=== PATIENT | male | born 1970 | race Hispanic/Latino ===

== ENCOUNTER 2017-07-07 22:13 | Emergency (ER) | payer MEDICARE ==
[~2017-07-07 22:13] MED LIST: AMOX-429 PO; ASPI-1181 PO; ATOR10 PO; BUPR-47 PO; CYCL10TA7 PO; GLIP10TA9 PO; INSLAN SQ; INSREG SQ; LURA20TA PO; METO25 PO; NALO25TA PO; PREG150C PO; SUVO20TA PO; TRAM50TA4 PO; TYL3 PO
[2017-07-07 22:44] LABS: EOSINOPHILS % (AUTO) 1.2 % (0.0-8.0); HEMATOCRIT 35.4 % (42-54); LYMPHOCYTES % (AUTO) 31.9 % (21.0-51.0); MEAN CORPUSCULAR HEMOGLOBIN 26.4 pg (27.0-33.0); MEAN CORPUSCULAR HGB CONC 32.9 g/dL (32.0-36.0); MEAN CORPUSCULAR VOLUME 80.2 fL (79-99); MONOCYTES % (AUTO) 9.8 % (3.0-13.0); NEUTROPHILS % (AUTO) 56.1 % (40.0-77.0); PLATELET COUNT (AUTO) 279 K/uL (130-400); RED BLOOD CELL COUNT(AUTO) 4.42 MIL/uL (4.50-6.20); RED CELL DISTRIBUTION WIDTH 20.2 % (11.0-15.5); WHITE BLOOD COUNT (AUTO) 5.7 K/uL (4.8-10.8)
[2017-07-07] MEDS ORDERED: ALTEPLASE 100 MG VIAL ONE (23:00)
[2017-07-07 23:03] LABS: CREATININE 1.5 mg/dL (0.5-1.5)
[2017-07-07] MEDS ORDERED: INSULIN HUMULIN R 100 UNIT/ML 3ML SQ ONE (23:08)
[2017-07-07 23:11] LABS: APPEARANCE,URINE Clear (CLEAR); BILIRUBIN,URINE Negative (NEGATIVE); COLOR,URINE Yellow (YELLOW); GLUCOSE, URINE (UA) >=1000 mg/dL (NEGATIVE); KETONES,URINE Negative (NEGATIVE); LEUKOCYTE ESTERASE ,URINE Negative (NEGATIVE); NITRATE,URINE Negative (NEGATIVE); OCCULT BLOOD,URINE Small (NEGATIVE); PROTEIN,URINE POS 2+ (NEGATIVE); UROBILINOGEN,URINE 0.2 mg/dL (0.2-1.0)
[2017-07-07 23:18] LABS: AMPHET/METH SCREEN,URINE NEGATIVE (NEGATIVE); BARBITURATE SCREEN, URINE NEGATIVE (NEGATIVE); BENZODIAZEPINES SCREEN,URINE NEGATIVE (NEGATIVE); CANNABINOID SCREEN,URINE NEGATIVE (NEGATIVE); COCAINE SCREEN,URINE NEGATIVE (NEGATIVE); OPIATE SCREEN,URINE NEGATIVE (NEGATIVE); PHENCYCLIDINE SCREEN,URINE NEGATIVE (NEGATIVE)
[2017-07-07 23:20] LABS: BACTERIA,URINE Rare /HPF (None Seen); SQUAMOUS EPITHELIAL CELL,UR None Seen /LPF (0-2); WBC,URINE None Seen /HPF (0-1)
[2017-07-07 23:21] LABS: INR 0.91 (0.85-1.15); PARTIAL THROMBOPLASTIN TIME 24.7 SEC (26.3-35.5); PROTHROMBIN TIME 9.6 SEC (9.6-11.6)
[2017-07-07] MEDS ORDERED: HYDROXYZINE HCL 25 MG TABLET ONE (23:49)
[2017-07-08] MEDS ORDERED: LORAZEPAM 2 MG/ML 1 ML VIAL ONE ×2 (02:03→03:36)
[2017-11-21] MEDS ORDERED: NALO25TA PO (15:26)
[2017-11-21] MEDS ORDERED: INSU3INS3 SQ ×2 (15:26)
[2017-11-21] MEDS ORDERED: TRAZ-147 PO (15:26)
[2017-11-21] MEDS ORDERED: SITA25TA5 PO (15:26)
[2017-11-21] MEDS ORDERED: METO50TA18 PO (15:26)
[2017-11-21] MEDS ORDERED: LISI-613 PO (15:26)
[2017-11-21] MEDS ORDERED: INSREG SQ (15:26)
[2017-11-21] MEDS ORDERED: BUDE10.2 IH (15:26)
[2017-11-21] MEDS ORDERED: DULO60CA63 PO (15:26)
[2017-11-21] MEDS ORDERED: CLOP75TA14 PO (15:26)
[2017-11-21] MEDS ORDERED: PANT40TA25 PO (15:26)
[2017-11-21] MEDS ORDERED: BUPR-47 PO (15:26)
[2017-11-21] MEDS ORDERED: SUVO20TA PO (15:26)
[2017-11-21] MEDS ORDERED: QUET100T PO (15:26)
[2017-12-24] MEDS ORDERED: DOXY100C2 PO (09:57)
== END 2017-07-08 05:36 ==
LOC: EDH 22:13
DX: G62.9 Polyneuropathy, unspecified (principal); R53.1 Weakness; E10.65 Type 1 diabetes mellitus with hyperglycemia; F32.9 Major depressive disorder, single episode, unspecified; I10 Essential (primary) hypertension; Z88.8 Allergy status to other drugs, medicaments and biological substances; Z95.1 Presence of aortocoronary bypass graft
CPT/HCPCS: 36415; 70450; 80048; 80305; 81001; 82948 ×3; 84484; 85025; 85610; 85730; 93005; 96361; 96374 ×2; 96375; 96376; 99291; J1815; J2060 ×2; J2997

== ENCOUNTER → 2017-07-16 | Outpatient (CLI) | payer MEDICARE ==
[~2017-07-16] MED LIST changes: +BUDE10.2 IH; +CLOP75TA14 PO; +DOXY100C2 PO; +DULO60CA63 PO; +FERR-82 PO; +FURO20TA4 PO; +HYDR-4154 PO; +INSU100I15 SQ; +INSU3INS3 SQ; +LISI-613 PO; +LORA1TAB3 PO; +LOSA100T29 PO; +LUBI24CA2 PO; +METO50TA18 PO; +PANT40TA25 PO; +QUET100T PO; +ROPI0.255 PO; +SITA25TA5 PO; +TRAZ-147 PO
== END | disposition home or self-care (01) ==
LOC: SHCH 13:41
PROVIDERS: ATTEND Internal Medicine Cardiovascular Disease
DX: I73.9 Peripheral vascular disease, unspecified (principal)
CPT/HCPCS: 93925

== ENCOUNTER 2017-09-08 17:59 | Observation (INO) | payer MEDICARE ==
[~2017-09-08] VITALS: Ht 180.3 cm; Wt 125.4 kg
[~2017-09-08 17:59] MED LIST changes: -BUDE10.2 IH; -CLOP75TA14 PO; -DOXY100C2 PO; -DULO60CA63 PO; -FERR-82 PO; -FURO20TA4 PO; -HYDR-4154 PO; -INSU100I15 SQ; -INSU3INS3 SQ; -LISI-613 PO; -LORA1TAB3 PO; -LOSA100T29 PO; -LUBI24CA2 PO; -METO50TA18 PO; -PANT40TA25 PO; -QUET100T PO; -ROPI0.255 PO; -SITA25TA5 PO; -TRAZ-147 PO
[2017-09-08 18:32] LABS: BASOPHILS % (AUTO) 0.4 % (0.0-5.0); HEMATOCRIT 32.6 % (42-54); LYMPHOCYTES % (AUTO) 32.3 % (21.0-51.0); MEAN CORPUSCULAR HEMOGLOBIN 30.3 pg (27.0-33.0); MEAN CORPUSCULAR HGB CONC 35.6 g/dL (32.0-36.0); MEAN CORPUSCULAR VOLUME 85.2 fL (79-99); MONOCYTES % (AUTO) 18.3 % (3.0-13.0); PLATELET COUNT (AUTO) 240 K/uL (130-400); RED BLOOD CELL COUNT(AUTO) 3.83 MIL/uL (4.50-6.20); RED CELL DISTRIBUTION WIDTH 18.6 % (11.0-15.5); WHITE BLOOD COUNT (AUTO) 5.7 K/uL (4.8-10.8)
[2017-09-08 18:42] LABS: CREATININE 2.4 mg/dL (0.5-1.5); POTASSIUM 5.6 mmol/L (3.5-5.1)
[2017-09-08 18:45] LABS: INR 0.94 (0.85-1.15); PARTIAL THROMBOPLASTIN TIME 27.1 SEC (26.3-35.5); PROTHROMBIN TIME 9.9 SEC (9.6-11.6)
[2017-09-08 18:47] LABS: BILIRUBIN,TOTAL 0.2 mg/dL (0.2-1.0); TOTAL PROTEIN, SERUM 6.7 g/dL (6.0-8.3)
[2017-09-08] MEDS ORDERED: ASPIRIN 81MG TAB.CHEW ONE (18:51)
[2017-09-08] MEDS ORDERED: SODIUM CHLORIDE 0.9% 1000ML 1,000 ML IV SCH (21:25)
[2017-09-08] MEDS ORDERED: ALPRAZOLAM 0.25 MG TABLET ONE (23:16)
[2017-09-09 04:16] VITALS: BP 142/77
[2017-09-09] MEDS ORDERED: LURA20TA PO (04:38)
[2017-09-09] MEDS ORDERED: PANT40TA25 PO (04:38)
[2017-09-09] MEDS ORDERED: FERR-82 PO (04:38)
[2017-09-09] MEDS ORDERED: INSLAN SQ (04:38)
[2017-09-09] MEDS ORDERED: ROPI0.255 PO (04:38)
[2017-09-09] MEDS ORDERED: CLOP75TA14 PO (04:38)
[2017-09-09] MEDS ORDERED: DULO60CA63 PO (04:38)
[2017-09-09] MEDS ORDERED: FURO20TA4 PO (04:38)
[2017-09-09] MEDS ORDERED: INSU100I15 SQ (04:38)
[2017-09-09] MEDS ORDERED: LOSA100T29 PO (04:38)
[2017-09-09] MEDS ORDERED: NALO25TA PO (04:38)
[2017-09-09] MEDS ORDERED: LUBI24CA2 PO (04:38)
[2017-09-09] MEDS ORDERED: LORA1TAB3 PO (04:38)
[2017-09-09] MEDS ORDERED: QUET100T PO (04:38)
[2017-09-09] MEDS ORDERED: HYDR-4154 PO (04:40)
[2017-09-09] MEDS ORDERED: DEXTROSE 50%-WATER 50 ML DISP.SYRIN IV PRN (05:30)
[2017-09-09] MEDS ORDERED: LORAZEPAM 1 MG TABLET PO PRN (05:30)
[2017-09-09] MEDS ORDERED: GLUCAGON 1MG KIT 1 MG ML IM PRN (05:30)
[2017-09-09] MEDS ORDERED: TRAMADOL HCL 50 MG TABLET PO PRN (05:30)
[2017-09-09 06:10] LABS: HEMATOCRIT 33.7 % (42-54); MEAN CORPUSCULAR HEMOGLOBIN 29.3 pg (27.0-33.0); MEAN CORPUSCULAR HGB CONC 34.1 g/dL (32.0-36.0); MEAN CORPUSCULAR VOLUME 85.9 fL (79-99); PLATELET COUNT (AUTO) 260 K/uL (130-400); RED BLOOD CELL COUNT(AUTO) 3.93 MIL/uL (4.50-6.20); RED CELL DISTRIBUTION WIDTH 18.7 % (11.0-15.5); WHITE BLOOD COUNT (AUTO) 6.2 K/uL (4.8-10.8)
[2017-09-09] MEDS: INSULIN HUMULIN R 100 UNIT/ML 3ML SQ SCH ×2 (06:28→12:28)
[2017-09-09 06:31] LABS: CREATININE 2.1 mg/dL (0.5-1.5); POTASSIUM 5.1 mmol/L (3.5-5.1)
[2017-09-09 07:00] VITALS: BP 152/87
[2017-09-09] MEDS ORDERED: ALPRAZOLAM 0.25 MG TABLET PO PRN (09:00)
[2017-09-09] MEDS ORDERED: DULOXETINE HCL 30 MG CAP PO SCH (09:00)
[2017-09-09] MEDS ORDERED: FUROSEMIDE 20 MG TABLET PO SCH (09:00)
[2017-09-09] MEDS ORDERED: PANTOPRAZOLE SODIUM 40 MG TABLET.DR PO SCH (09:00)
[2017-09-09] MEDS ORDERED: HEPARIN SODIUM 5000UNIT/ML 1ML VIAL SQ SCH (09:00)
[2017-09-09] MEDS ORDERED: CLOPIDOGREL BISULFATE 75 MG TAB PO SCH (09:00)
[2017-09-09] MEDS ORDERED: LUBIPROSTONE 24 MCG CAP PO SCH (09:00)
[2017-09-09] MEDS ORDERED: ASPIRIN 81 MG EC TAB PO SCH (09:00)
[2017-09-09] MEDS ORDERED: LATUDA 20 MG PO SCH (09:00)
[2017-09-09] MEDS ORDERED: MOVANTIK 25 MG PO PRN (09:00)
[2017-09-09] MEDS ORDERED: LOSARTAN 100 MG TABLET PO SCH (09:00)
[2017-09-09] MEDS ORDERED: INSULIN GLARGINE 100 UNITS/ML 10 ML VIAL SQ SCH ×2 (09:00→18:00)
[2017-09-09] MEDS ORDERED: **HM** BUPROPION XL 150MG PO SCH (09:00)
[2017-09-09] MEDS ORDERED: FAMOTIDINE/PF 20 MG/2 ML VIAL IV SCH (09:00)
[2017-09-09] MEDS ORDERED: HYDRALAZINE HCL 25 MG TABLET PO SCH (09:00)
[2017-09-09] MEDS ORDERED: MOVANTIK 25 MG PO SCH (09:00)
[2017-09-09] MEDS ORDERED: QUETIAPINE FUMARATE 100 MG TAB PO SCH (09:00)
[2017-09-09 11:00] VITALS: BP 161/93
[2017-09-09] MEDS: PREGABALIN 75 MG CAPSULE PO SCH ×2 (11:49→12:38)
[2017-09-09] MEDS: METOPROLOL TARTRATE 25 MG TAB PO SCH ×2 (11:50→12:39)
[2017-09-09] MEDS: FERROUS SULFATE 325 MG TABLET.DR PO SCH ×2 (11:52→12:00)
[2017-09-09] MEDS ORDERED: HYDRALAZINE HCL 20 MG/ML VIAL IV PRN (15:45)
[2017-09-09 15:58] VITALS: BP 161/93
[2017-09-09 19:50] VITALS: BP 144/90
[2017-09-09] MEDS ORDERED: BELSOMRA 20 MG PO SCH (21:00)
[2017-09-09] MEDS ORDERED: ATORVASTATIN CALCIUM 10 MG TABLET PO SCH (21:00)
[2017-09-09] MEDS ORDERED: ROPINIROLE HCL 1 MG TABLET PO SCH (21:00)
[2017-11-21] MEDS ORDERED: PANT40TA25 PO (15:26)
[2017-11-21] MEDS ORDERED: INSREG SQ (15:26)
[2017-11-21] MEDS ORDERED: QUET100T PO (15:26)
[2017-11-21] MEDS ORDERED: METO50TA18 PO (15:26)
[2017-11-21] MEDS ORDERED: INSU3INS3 SQ ×2 (15:26)
[2017-11-21] MEDS ORDERED: NALO25TA PO (15:26)
[2017-11-21] MEDS ORDERED: BUPR-47 PO (15:26)
[2017-11-21] MEDS ORDERED: BUDE10.2 IH (15:26)
[2017-11-21] MEDS ORDERED: SUVO20TA PO (15:26)
[2017-11-21] MEDS ORDERED: DULO60CA63 PO (15:26)
[2017-11-21] MEDS ORDERED: LISI-613 PO (15:26)
[2017-11-21] MEDS ORDERED: CLOP75TA14 PO (15:26)
[2017-11-21] MEDS ORDERED: SITA25TA5 PO (15:26)
[2017-11-21] MEDS ORDERED: TRAZ-147 PO (15:26)
[2017-12-24] MEDS ORDERED: DOXY100C2 PO (09:57)
== END 2017-09-09 20:00 | disposition home or self-care (01) ==
LOC: EDH 17:59 → EDHIP 21:25 → 3CH 09-09 04:16
PROVIDERS: ADMIT Family Medicine; ATTEND Family Medicine
DX: I63.8 Other cerebral infarction (principal); E78.5 Hyperlipidemia, unspecified; I69.351 Hemiplegia and hemiparesis following cerebral infarction affecting right dominant side; I69.391 Dysphagia following cerebral infarction; R13.10 Dysphagia, unspecified; M06.811 Other specified rheumatoid arthritis, right shoulder; N28.9 Disorder of kidney and ureter, unspecified; I10 Essential (primary) hypertension; E11.69 Type 2 diabetes mellitus with other specified complication; F41.8 Other specified anxiety disorders; G25.81 Restless legs syndrome; Z79.02 Long term (current) use of antithrombotics/antiplatelets; Z95.1 Presence of aortocoronary bypass graft; Z79.4 Long term (current) use of insulin; Z79.82 Long term (current) use of aspirin
CPT/HCPCS: 36415 ×2; 70450; 70547; 70551; 74230; 80048; 80053; 80061; 82948 ×4; 83036; 84484; 85025; 85027; 85610; 85730; 92610; 92611; 93005; 96361; 96372; 96374; 99285; G0378 ×23; J1644; J1815 ×2; J3490; J7030

== ENCOUNTER 2017-11-25 07:11 | Day surgery (SDC) | payer MEDICARE ==
[2017-11-21 14:17] LABS: BASOPHILS % (AUTO) 0.6 % (0.0-5.0); EOSINOPHILS % (AUTO) 1.1 % (0.0-8.0); HEMATOCRIT 39.2 % (42-54); LYMPHOCYTES % (AUTO) 29.2 % (21.0-51.0); MEAN CORPUSCULAR HEMOGLOBIN 28.4 pg (27.0-33.0); MEAN CORPUSCULAR HGB CONC 33.7 g/dL (32.0-36.0); MEAN CORPUSCULAR VOLUME 84.3 fL (79-99); MONOCYTES % (AUTO) 11.7 % (3.0-13.0); NEUTROPHILS % (AUTO) 57.4 % (40.0-77.0); PLATELET COUNT (AUTO) 353 K/uL (130-400); RED BLOOD CELL COUNT(AUTO) 4.65 MIL/uL (4.50-6.20)
[2017-11-21 14:26] LABS: CREATININE 1.7 mg/dL (0.5-1.5); POTASSIUM 5.7 mmol/L (3.5-5.1)
[2017-11-21 14:29] LABS: INR 0.93 (0.85-1.15); PARTIAL THROMBOPLASTIN TIME 25.2 SEC (26.3-35.5); PROTHROMBIN TIME 9.8 SEC (9.6-11.6)
[2017-11-21 14:43] VITALS: BP 124/72
[~2017-11-25] VITALS: Ht 177.8 cm; Wt 128.5 kg
[2017-11-25] VITALS (11 sets, daily range): BP systolic 120–154; BP diastolic 61–90
[~2017-11-25 07:11] MED LIST changes: -AMOX-429 PO; +BUDE10.2 IH; +CLOP75TA14 PO; -CYCL10TA7 PO; +DULO60CA63 PO; +FURO20TA4 PO; -GLIP10TA9 PO; +HYDR-4154 PO; -INSLAN SQ; +INSU3INS3 SQ; +LISI-613 PO; -METO25 PO; +METO50TA18 PO; +PANT40TA25 PO; +QUET100T PO; +ROPI0.255 PO; +SITA25TA5 PO; -TRAM50TA4 PO; +TRAZ-187 PO; -TYL3 PO
[2017-11-25 07:38] LABS: CREATININE 1.5 mg/dL (0.5-1.5); POTASSIUM 4.7 mmol/L (3.5-5.1)
[2017-11-25] MEDS ORDERED: SODIUM CHLORIDE 0.9% 1000ML 1,000 ML IV SCH (08:00)
[2017-11-25] MEDS ORDERED: LIDOCAINE HCL 2% VISCOUS 15 ML UDCUP PO SCH (09:00)
[2017-11-25] MEDS ORDERED: FENTANYL CITRATE PF 50 MCG/1 ML 2ML VIAL ONE (11:11)
[2017-11-25] MEDS ORDERED: MIDAZOLAM HCL 1 MG/ML 2ML VIAL ONE ×2 (11:11→11:20)
[2017-12-24] MEDS ORDERED: DOXY100C2 PO (09:57)
== END 2017-11-25 13:10 | disposition home or self-care (01) ==
LOC: DAH 07:11
PROVIDERS: ATTEND Internal Medicine Cardiovascular Disease
DX: G45.9 Transient cerebral ischemic attack, unspecified (principal); I10 Essential (primary) hypertension; I25.10 Atherosclerotic heart disease of native coronary artery without angina pectoris; E78.5 Hyperlipidemia, unspecified; E11.41 Type 2 diabetes mellitus with diabetic mononeuropathy; F41.9 Anxiety disorder, unspecified; F32.9 Major depressive disorder, single episode, unspecified; Z95.5 Presence of coronary angioplasty implant and graft; Z98.890 Other specified postprocedural states; Z91.041 Radiographic dye allergy status; Z82.49 Family history of ischemic heart disease and other diseases of the circulatory system
CPT/HCPCS: 36415 ×2; 80048 ×2; 82948; 85025; 85610; 85730; 93312; A4606; J2250 ×2; J3010; J7030

== ENCOUNTER → 2018-07-22 | Outpatient (CLI) | payer MEDICARE ==
[~2018-07-22] MED LIST changes: +DOXY100C2 PO; -ROPI0.255 PO; +ROPI0.257 PO
== END | disposition home or self-care (01) ==
LOC: SHCH 08:39
PROVIDERS: ATTEND Internal Medicine Cardiovascular Disease
DX: I73.9 Peripheral vascular disease, unspecified (principal); I87.2 Venous insufficiency (chronic) (peripheral)
CPT/HCPCS: 93925; 93970

== ENCOUNTER → 2018-09-21 | Outpatient (CLI) | payer MEDICARE | END | disposition home or self-care (01) | LOC: OIH 13:24 | PROVIDERS: ATTEND Internal Medicine | DX: M06.4 Inflammatory polyarthropathy (principal) | CPT/HCPCS: 73120; 73620 ==

== ENCOUNTER 2019-01-31 22:20 | Inpatient (IN) | payer MEDICARE | END 2019-02-05 18:22 | disposition home or self-care (01) | LOC: EDH 22:20 → EDHIP 02-01 00:01 → 4BH 02-01 07:52 | DX: N17.9 Acute kidney failure, unspecified (principal); M62.82 Rhabdomyolysis; R79.89 Other specified abnormal findings of blood chemistry; R06.02 Shortness of breath; F32.9 Major depressive disorder, single episode, unspecified ==

== ENCOUNTER 2019-02-07 17:24 | Emergency (ER) | payer MEDICARE ==
[~2019-02-07 17:24] MED LIST changes: +AMLO5TAB9 PO; -ATOR10 PO; -BUDE10.2 IH; -BUPR-47 PO; -CLOP75TA14 PO; +CLOP75TA32 PO; -DOXY100C2 PO; -DULO60CA63 PO; -FURO20TA4 PO; +FURO40TA7 PO; +GLIP10TA9 PO; +HYDR-4153 PO; -HYDR-4154 PO; +HYDR200T4 PO; +INSU100I26 SQ; -INSU3INS3 SQ; +LINA5TAB PO; +LIRA0.6P SQ; -LISI-613 PO; -LURA20TA PO; +METO-482 PO; -METO50TA18 PO; -QUET100T PO; +RANI150T7 PO; -ROPI0.257 PO; -SITA25TA5 PO; +TRAM50TA4 PO; -TRAZ-187 PO
== END 2019-02-07 18:01 | disposition home or self-care (01) ==
LOC: EDH 17:24
DX: I80.9 Phlebitis and thrombophlebitis of unspecified site (principal); F41.9 Anxiety disorder, unspecified; F32.9 Major depressive disorder, single episode, unspecified; E78.5 Hyperlipidemia, unspecified; I10 Essential (primary) hypertension; E11.9 Type 2 diabetes mellitus without complications; Z86.73 Personal history of transient ischemic attack (TIA), and cerebral infarction without residual deficits; Z79.4 Long term (current) use of insulin; Z87.891 Personal history of nicotine dependence; Z91.041 Radiographic dye allergy status

== ENCOUNTER 2019-09-05 22:13 | Inpatient (IN) | payer OTHER ==
[~2019-09-05 22:13] MED LIST changes: +AMLO5TAB4 PO; -AMLO5TAB9 PO; -RANI150T7 PO; -SUVO20TA PO; -TRAM50TA4 PO
[2019-09-05] MEDS ORDERED: ONDANSETRON HCL 4 MG/2 ML VIAL ONE (22:34)
[2019-09-05 23:07] LABS: BASOPHILS % (AUTO) 0.3 % (0.0-5.0); EOSINOPHILS % (AUTO) 0.3 % (0.0-8.0); HEMATOCRIT 35.7 % (42-54); LYMPHOCYTES % (AUTO) 19.9 % (21.0-51.0); MEAN CORPUSCULAR HEMOGLOBIN 27.4 pg (27.0-33.0); MEAN CORPUSCULAR HGB CONC 31.7 g/dL (32.0-36.0); MEAN CORPUSCULAR VOLUME 86.7 fL (79-99); MONOCYTES % (AUTO) 14.7 % (3.0-13.0); NEUTROPHILS % (AUTO) 63.6 % (40.0-77.0); PLATELET COUNT (AUTO) 252 K/uL (130-400); RED BLOOD CELL COUNT(AUTO) 4.12 MIL/uL (4.50-6.20); RED CELL DISTRIBUTION WIDTH 15.2 % (11.0-15.5); WHITE BLOOD COUNT (AUTO) 3.5 K/uL (4.8-10.8)
[2019-09-05 23:13] LABS: APPEARANCE,URINE Clear (CLEAR); BILIRUBIN,URINE Negative (NEGATIVE); COLOR,URINE Yellow (YELLOW); GLUCOSE, URINE (UA) 500 mg/dL (NEGATIVE); KETONES,URINE Trace mg/dL (NEGATIVE); LEUKOCYTE ESTERASE ,URINE Negative (NEGATIVE); NITRATE,URINE Negative (NEGATIVE); OCCULT BLOOD,URINE Moderate (NEGATIVE); PH,URINE 6.5 (5.0-8.0); PROTEIN,URINE >=1000 mg/dL (NEGATIVE); UROBILINOGEN,URINE 0.2 mg/dL (0.2-1.0)
[2019-09-05 23:15] LABS: CREATININE 4.5 mg/dL (0.5-1.5); POTASSIUM 4.5 mmol/L (3.5-5.1)
[2019-09-05 23:17] LABS: AMYLASE 43 U/L (25-115); LIPASE 122 U/L (114-286)
[2019-09-05 23:20] LABS: BILIRUBIN,TOTAL 0.2 mg/dL (0.2-1.0)
[2019-09-05 23:20] LABS: AMPHET/METH SCREEN,URINE NEGATIVE (NEGATIVE); BARBITURATE SCREEN, URINE NEGATIVE (NEGATIVE); BENZODIAZEPINES SCREEN,URINE NEGATIVE (NEGATIVE); CANNABINOID SCREEN,URINE NEGATIVE (NEGATIVE); COCAINE SCREEN,URINE NEGATIVE (NEGATIVE); OPIATE SCREEN,URINE POSITIVE (NEGATIVE); PHENCYCLIDINE SCREEN,URINE NEGATIVE (NEGATIVE)
[2019-09-05 23:22] LABS: INR 0.98 (0.85-1.15); PARTIAL THROMBOPLASTIN TIME 28.7 SEC (26.3-35.5); PROTHROMBIN TIME 10.6 SEC (9.6-11.6)
[2019-09-05 23:29] LABS: BACTERIA,URINE None Seen /HPF (None Seen); MUCUS,URINE Few LPF (None Seen); SQUAMOUS EPITHELIAL CELL,UR Moderate /HPF (0-2)
[2019-09-05] MEDS ORDERED: FUROSEMIDE 10 MG/ML 2ML VIAL ONE (23:51)
[2019-09-05] MEDS ORDERED: OSELTAMIVIR PHOSPHATE 75 MG CAP ONE (23:51)
[2019-09-05] MEDS ORDERED: FUROSEMIDE 10 MG/ML 4ML VIAL ONE (23:51)
[2019-09-06] MEDS ORDERED: HYDRALAZINE HCL 20 MG/ML VIAL IV PRN (01:15)
[2019-09-06] MEDS ORDERED: ACETAMINOPHEN 325 MG TAB PO PRN (01:15)
[2019-09-06] MEDS ORDERED: ONDANSETRON HCL 4 MG/2 ML VIAL IVP PRN (01:15)
[2019-09-06] MEDS ORDERED: IPRATROPIUM/ALBUTEROL SULFATE 3 ML SOLUTION IH ONE (05:01)
[2019-09-06] MEDS ORDERED: METOCLOPRAMIDE 10 MG/2 ML VIAL IVP SCH (06:00)
[2019-09-06] MEDS ORDERED: IPRATROPIUM/ALBUTEROL SULFATE 3 ML SOLUTION IH SCH (06:00)
[2019-09-06] MEDS ORDERED: ENOXAPARIN SODIUM 30 MG/0.3 ML SQ SCH (09:00)
[2019-09-06] MEDS ORDERED: FOLIC ACID/VITAMIN B COMP W-C 1 CAP TAB PO SCH (09:00)
[2019-09-06] MEDS ORDERED: FUROSEMIDE 10 MG/ML 4ML VIAL IVP SCH (09:00)
[2019-09-06] MEDS ORDERED: FAMOTIDINE 20MG TAB 20 MG TAB PO SCH (09:00)
== END 2019-09-06 05:21 | disposition left against medical advice (07) | DRG 149 ==
LOC: EDH 22:13 → EDHIP 23:50
PROVIDERS: ADMIT Internal Medicine Critical Care Medicine; ATTEND Internal Medicine Critical Care Medicine
DX: R42 Dizziness and giddiness (principal); N18.4 Chronic kidney disease, stage 4 (severe); Z91.041 Radiographic dye allergy status; E11.65 Type 2 diabetes mellitus with hyperglycemia; E87.70 Fluid overload, unspecified; F41.9 Anxiety disorder, unspecified; F32.9 Major depressive disorder, single episode, unspecified; E78.5 Hyperlipidemia, unspecified; Z86.73 Personal history of transient ischemic attack (TIA), and cerebral infarction without residual deficits; Z99.81 Dependence on supplemental oxygen; Z87.442 Personal history of urinary calculi; I12.9 Hypertensive chronic kidney disease with stage 1 through stage 4 chronic kidney disease, or unspecified chronic kidney disease; E11.22 Type 2 diabetes mellitus with diabetic chronic kidney disease; Z95.1 Presence of aortocoronary bypass graft
CPT/HCPCS: 36415; 71045; 80053; 80305; 81001; 82150; 82550; 83605; 83690; 83880; 84484; 85025; 85610; 85730; 87040; 87804; 93005; 94664; G0378; J1940; J2405

== ENCOUNTER → 2019-09-24 | Outpatient (CLI) | payer OTHER | END | disposition home or self-care (01) | LOC: SHCH 11:24 | PROVIDERS: ATTEND Internal Medicine Cardiovascular Disease | DX: R01.1 Cardiac murmur, unspecified (principal) | CPT/HCPCS: 93306 ==

== ENCOUNTER 2019-11-18 17:03 | Inpatient (IN) | payer OTHER ==
[~2019-11-18] VITALS: Ht 177.8 cm; Wt 124.3 kg
[~2019-11-18 17:03] MED LIST changes: -ASPI-1181 PO; +ASPI-1443 PO; -NALO25TA PO; +NALO25TA4 PO; -PANT40TA25 PO; +PANT40TA54 PO
[2019-11-18] MEDS ORDERED: ONDANSETRON HCL 4 MG/2 ML VIAL IVP PRN (19:00)
[2019-11-18] MEDS ORDERED: LABETALOL 20 MG/4 ML DISP.SYRIN IV PRN (19:00)
[2019-11-18] MEDS ORDERED: ACETAMINOPHEN 325 MG TAB PO PRN (19:00)
[2019-11-18] MEDS ORDERED: VANCOMYCIN 2 GM in SODIUM CHLORIDE 0.9% 500ML 500 ML IV ONE (19:00)
[2019-11-18 19:01] LABS: BASOPHILS % (AUTO) 0.2 % (0.0-5.0); EOSINOPHILS % (AUTO) 1.7 % (0.0-8.0); HEMATOCRIT 30.2 % (42-54); LYMPHOCYTES % (AUTO) 27.5 % (21.0-51.0); MEAN CORPUSCULAR HGB CONC 32.5 g/dL (32.0-36.0); MEAN CORPUSCULAR VOLUME 89.3 fL (79-99); NEUTROPHILS % (AUTO) 42.9 % (40.0-77.0); PLATELET COUNT (AUTO) 177 K/uL (130-400); RED BLOOD CELL COUNT(AUTO) 3.38 MIL/uL (4.50-6.20); RED CELL DISTRIBUTION WIDTH 15.6 % (11.0-15.5); WHITE BLOOD COUNT (AUTO) 4.2 K/uL (4.8-10.8)
[2019-11-18] MEDS ORDERED: VANCOMYCIN PROTOCOL PER PHARMACY IV SCH (19:15)
[2019-11-18] MEDS ORDERED: COMPOUND IV REFRIGERATED 1 EACH IVSOLN MISC PRN (19:15)
[2019-11-18] MEDS ORDERED: VANCOMYCIN 1.25 GM in SODIUM CHLORIDE 0.9% 250 ML IV SCH (19:15)
[2019-11-18 19:18] LABS: ALBUMIN 2.3 g/dL (3.5-5.0); BILIRUBIN,DIRECT 0.1 mg/dL (0.0-0.3); BILIRUBIN,TOTAL 0.2 mg/dL (0.2-1.0); CREATININE 6.7 mg/dL (0.5-1.5); POTASSIUM 3.7 mmol/L (3.5-5.1); TOTAL PROTEIN, SERUM 7.6 g/dL (6.0-8.3)
[2019-11-18 19:45] LABS: INR 0.99 (0.85-1.15); PROTHROMBIN TIME 10.7 SEC (9.6-11.6)
[2019-11-18] MEDS ORDERED: ACETAMINOPHEN 325 MG TAB ONE (20:33)
[2019-11-18] MEDS ORDERED: ZOSYN 3.375GM+NS 50ML 50 ML IV SCH (21:00)
[2019-11-18 23:10] VITALS: BP 174/92
--- NOTE | 2019-11-18 23:10 | NUR ---
ADMISSION NOTE: Admitted to floor via stretcher. Fully awake and responsive. Place in bed comfortably. VS checked and recorded. Assessment done. ( See CPOE flow chart for full assessment). Has Vanco running to RAC ,#20g. via dial flow at 125 ml/hr - patent and intact. Plan of care initiated. Oriented to room and use of call light. Policies and procedures explained. Agreed and verbalized understanding. Photo taken to wound at left heel , attached to chart. Consent signed for Perm - a - cath placement. Placed on NPO at MA. Needs attended. Monitored for any unusual changes. Denies feeling of pain at this time. No apparent distress noted.
[2019-11-19] VITALS (14 sets, daily range): BP systolic 153–194; BP diastolic 78–100
[2019-11-19] MEDS ORDERED: PRAM0.129 PO (00:23)
[2019-11-19] MEDS ORDERED: ATOR10TA69 PO (00:23)
[2019-11-19] MEDS ORDERED: METO2.5T2 PO (00:23)
[2019-11-19] MEDS ORDERED: LORA2TAB80 PO (00:23)
[2019-11-19] MEDS ORDERED: CEPH500C2 PO (00:23)
[2019-11-19] MEDS ORDERED: TYL4 PO (00:23)
[2019-11-19] MEDS ORDERED: FERR325T22 PO (00:23)
[2019-11-19] MEDS ORDERED: PREG150C46 PO (00:23)
[2019-11-19] MEDS ORDERED: METO100T14 PO (00:23)
[2019-11-19] MEDS ORDERED: CLON0.1T PO (00:23)
[2019-11-19] MEDS ORDERED: SERT100T12 PO (00:23)
[2019-11-19] MEDS ORDERED: GLUCAGON 1MG KIT 1 MG ML IM PRN ×2 (01:00→01:15)
[2019-11-19] MEDS ORDERED: INSULIN IV SS1 SQ PRN ×2 (01:00)
[2019-11-19] MEDS ORDERED: DEXTROSE 50%-WATER 50 ML DISP.SYRIN IV PRN ×2 (01:00→01:15)
[2019-11-19] MEDS: INSULIN HUMULIN R 100 UNIT/ML 3ML SQ SCH ×4 (05:26→20:54)
[2019-11-19] MEDS: CLONIDINE HCL 0.1 MG TABLET PO SCH ×4 (09:00→20:52)
[2019-11-19] MEDS: METOPROLOL TARTRATE 50 MG TAB PO SCH ×2 (09:00→20:59)
[2019-11-19] MEDS: HEPARIN SODIUM 5000UNIT/ML 1ML VIAL SQ SCH ×2 (09:00→21:00)
--- NOTE | 2019-11-19 13:14 | NUR ---
[facility] consult Patient assessed as ordered. Patient with ulcer to left heel with thick callus. [facility] recommendations submitted. Addendum: 11/19/19 at 1314 by OVIDIO TIPTON RN/ Amended: Links added.
[2019-11-19] MEDS: ZOSYN 3.375GM+NS 50ML 50 ML IV SCH ×2 (14:15→22:34)
[2019-11-19] MEDS ORDERED: MAG HYDROX/AL HYDROX/SIMETH ES 30 ML SUSP UDCUP PO PRN (15:15)
[2019-11-19] MEDS ORDERED: GUAIFENESIN-DM 200/20 MG 10 ML PO PRN (15:15)
[2019-11-19] MEDS ORDERED: ACETAMINOPHEN 325 MG TAB PO PRN ×2 (15:15)
[2019-11-19] MEDS ORDERED: DiphenhydrAMINE HCL 50 MG/ML VIAL IV PRN (15:15)
[2019-11-19] MEDS ORDERED: LACTULOSE 20 GM/30 ML UDCUP PO PRN (15:15)
[2019-11-19] MEDS ORDERED: ONDANSETRON HCL 4 MG/2 ML VIAL IV PRN (15:15)
[2019-11-19] MEDS ORDERED: ZOLPIDEM TARTRATE 5 MG TAB PO PRN (15:15)
[2019-11-19] MEDS ORDERED: DIPHENHYDRAMINE HCL 25 MG CAPSULE PO PRN (15:15)
[2019-11-19] MEDS ORDERED: NITROGLYCERIN 0.4 MG SL TAB SL PRN (15:15)
--- NOTE | 2019-11-19 15:19 | NUR ---
NUTRITION EDUCATION RD provided Diabetes, Dialysis, Heart Healthy Nutrition Education. Pt denies need for education, refusal nutrition education. Pt was receptive for nutrition handouts. RD encouraged to notify as questions arise. Addendum: 11/19/19 at [address] Amended: Links added.
--- NOTE | 2019-11-19 15:50 | NUR ---
TO [facility] PLANS INTELLIGENCE OFFICER CHIEF NOW FOR PERMA-CATH PLACEMENT.
[2019-11-19] MEDS ORDERED: LIDOCAINE HCL 1% MDV 50ML VIAL ONE (16:22)
[2019-11-19] MEDS ORDERED: INSULIN HUMULIN R 100 UNIT/ML 3ML SQ SCH (16:30)
--- NOTE | 2019-11-19 17:20 | NUR ---
REPORT RECEIVED AND PT. RETURNED TO ROOM. AWAKE, ALERT AND WANTS A DRINK OF WATER NOW.PERMA CATH DOUBLE LUMEN IN PLACE TO RT. UPPER CHEST, WELL SECURED, DRESSING IN PLACE AND STATURED WITH BLOOD. DRESSING REINFORCED
--- NOTE | 2019-11-19 18:00 | NUR ---
CALLED TO ROOM , BLEEDING FROM PERMA CATH SITE. PRESSURE APPLIED FOR 15 TO 20 MINUTES AND THEN PRESSURE DRESSING APPLIED HOWEVER IN A SHORT WHILE THE BLEEDING STARTED AGAIN, REUSE TECHNICIAN STAFF NOTIFIED AND SHORTLY THEREAFTER A DR CAME UP AND PUT IN A SUTURE IN
--- NOTE | 2019-11-19 19:00 | NUR ---
PT.WAS CLEANED, BED LINENS CHANGED AND NO FURTHER BLEEDING SEEN
[2019-11-19] MEDS: ATORVASTATIN CALCIUM 10 MG TABLET PO SCH (20:52)
[2019-11-19] MEDS: HYDROXYCHLOROQUINE SULFATE 200 MG TAB PO SCH (20:53)
[2019-11-19] MEDS: INSULIN GLARGINE 100 UNITS/ML 10 ML VIAL SQ SCH (20:55)
[2019-11-19] MEDS: PRAMIPEXOLE DI-HCL 0.25 MG TABLET PO SCH (20:59)
[2019-11-19] MEDS: PREGABALIN 75 MG CAPSULE PO SCH (20:59)
[2019-11-19] MEDS: FAMOTIDINE 20MG TAB 20 MG TAB PO SCH (20:59)
--- NOTE | 2019-11-19 21:21 | NUR ---
STUDIO COUCH FRAME BUILDER. HEPARIN NOT GIVEN ORDERED BLEEDING STILL NOTED FROM RECENTLY PLACED RIGHT PERMacath Addendum: 11/19/19 at 2 by AMANDA ALDANA RN RN Amended: Links added.
[2019-11-20 01:07] VITALS: BP 129/67
[2019-11-20 06:28] VITALS: BP 158/82
[2019-11-20] MEDS: INSULIN HUMULIN R 100 UNIT/ML 3ML SQ SCH ×4 (06:32→22:33)
[2019-11-20 08:00] VITALS: BP 173/81
[2019-11-20] MEDS: PREGABALIN 75 MG CAPSULE PO SCH ×2 (08:15→22:04)
[2019-11-20] MEDS: METOLAZONE 2.5 MG TABLET PO SCH (08:15)
[2019-11-20] MEDS: SERTRALINE HCL 50 MG TABLET PO SCH (08:15)
[2019-11-20] MEDS: HYDROXYCHLOROQUINE SULFATE 200 MG TAB PO SCH ×2 (08:16→22:04)
[2019-11-20] MEDS: METOPROLOL TARTRATE 50 MG TAB PO SCH ×2 (08:16→22:04)
[2019-11-20 08:32] LABS: HEMATOCRIT 30.3 % (42-54); MEAN CORPUSCULAR HEMOGLOBIN 28.9 pg (27.0-33.0); MEAN CORPUSCULAR HGB CONC 31.7 g/dL (32.0-36.0); MEAN CORPUSCULAR VOLUME 91.3 fL (79-99); PLATELET COUNT (AUTO) 218 K/uL (130-400); RED BLOOD CELL COUNT(AUTO) 3.32 MIL/uL (4.50-6.20); RED CELL DISTRIBUTION WIDTH 15.6 % (11.0-15.5); WHITE BLOOD COUNT (AUTO) 4.2 K/uL (4.8-10.8)
[2019-11-20 08:46] LABS: CREATININE 6.1 mg/dL (0.5-1.5); POTASSIUM 4.2 mmol/L (3.5-5.1)
[2019-11-20] MEDS: CLOPIDOGREL BISULFATE 75 MG TAB PO SCH (09:00)
[2019-11-20] MEDS ORDERED: ASPIRIN 81 MG EC TAB PO SCH (09:00)
[2019-11-20] MEDS: HEPARIN SODIUM 5000UNIT/ML 1ML VIAL SQ SCH ×2 (09:00→21:00)
[2019-11-20 10:08] LABS: LYMPHOCYTES % (MANUAL) 37 % (22-44); MAN.DIFF COMMENT-IMPRESSION MANUAL DIFFERENTIAL; MONOCYTES % (MANUAL) 19 % (2-9); PLATELET MORPHOLOGY COMMENT ADEQUATE; SEGMENTED NEUTROPHILS % 44 % (40-70)
[2019-11-20] MEDS: ZOSYN 3.375GM+NS 50ML 50 ML IV SCH ×2 (11:35→22:25)
[2019-11-20] MEDS: FERROUS SULFATE 325 MG TABLET.DR PO SCH (11:36)
[2019-11-20] MEDS: CLONIDINE HCL 0.1 MG TABLET PO SCH ×4 (11:38→22:04)
[2019-11-20 11:59] VITALS: BP 163/84
[2019-11-20] MEDS: PRAMIPEXOLE DI-HCL 0.25 MG TABLET PO SCH ×2 (12:40→22:05)
--- NOTE | 2019-11-20 15:45 | NUR ---
Reported continued bloody oozing from permacath insertion site to Dr. Matthew (interventional radiologist who inserted it yesterday). Rec'd orders to dress with Quick Clot hemostatic dressing and hold pressure x 10-20 minutes. Using sterile technique, removed heavily soiled dressing, and cleansed site with chloraprep swab. No redness or swelling noted, but slow oozing seen, suture intact. Applied Quick Clot dressing and 4x4's, then applied pressure x 20 minutes. Hemostasis achieved. Secured with central line dressing. Pt tolerated well. Pt left with HOB elevates, call light and beside table in easy reach.
[2019-11-20 16:00] VITALS: BP 167/86
--- NOTE | 2019-11-20 18:36 | NUR ---
cm note met with patient and states resides at home with spouse, uses cane and walker for ambulation. and w/c for longer distances. . no provider, assists as neede with bath. [place] .pt states may end up starting on dialysis this admission, pending to speak to md about it. informed that if needed cm will assist. pt verbalizes understanding. Addendum: 11/20/19 at 1839 by EMELIA LAWRENCE CM Amended: Links added.
--- NOTE | 2019-11-20 18:53 | NUR ---
No further bleeding noted from permacath site - dressing is clean, dry, and intact.
[2019-11-20 19:00] VITALS: BP 164/82
[2019-11-20] MEDS: FAMOTIDINE 20MG TAB 20 MG TAB PO SCH (22:04)
[2019-11-20] MEDS: ATORVASTATIN CALCIUM 10 MG TABLET PO SCH (22:04)
[2019-11-20] MEDS: MORPHINE SULFATE 2 MG/ML 1ML SYG IV PRN (22:27)
[2019-11-20] MEDS: INSULIN GLARGINE 100 UNITS/ML 10 ML VIAL SQ SCH (22:36)
[2019-11-21 00:05] VITALS: BP 123/94
[2019-11-21] MEDS: HYDRALAZINE HCL 20 MG/ML VIAL IV PRN (01:41)
[2019-11-21 03:14] VITALS: BP 153/78
[2019-11-21 05:41] LABS: BASOPHILS % (AUTO) 0.2 % (0.0-5.0); EOSINOPHILS % (AUTO) 0.4 % (0.0-8.0); HEMATOCRIT 29.9 % (42-54); LYMPHOCYTES % (AUTO) 19.1 % (21.0-51.0); MEAN CORPUSCULAR HEMOGLOBIN 29.1 pg (27.0-33.0); MEAN CORPUSCULAR HGB CONC 32.8 g/dL (32.0-36.0); MEAN CORPUSCULAR VOLUME 88.7 fL (79-99); MONOCYTES % (AUTO) 11.3 % (3.0-13.0); NEUTROPHILS % (AUTO) 67.4 % (40.0-77.0); PLATELET COUNT (AUTO) 214 K/uL (130-400); RED BLOOD CELL COUNT(AUTO) 3.37 MIL/uL (4.50-6.20); RED CELL DISTRIBUTION WIDTH 15.2 % (11.0-15.5); WHITE BLOOD COUNT (AUTO) 4.9 K/uL (4.8-10.8)
[2019-11-21 06:06] LABS: ALBUMIN 2.3 g/dL (3.5-5.0); BILIRUBIN,TOTAL 0.3 mg/dL (0.2-1.0); CREATININE 5.6 mg/dL (0.5-1.5); CRP QUANTITATIVE 45.8 mg/L (0.00-9.0); MAGNESIUM 1.5 mg/dL (1.80-2.40); POTASSIUM 3.5 mmol/L (3.5-5.1); TOTAL PROTEIN, SERUM 7.3 g/dL (6.0-8.3)
[2019-11-21] MEDS: INSULIN HUMULIN R 100 UNIT/ML 3ML SQ SCH ×4 (06:21→20:56)
[2019-11-21 06:40] LABS: ERYTHROCYTE SEDIMENTATION RATE > 150 MM/HR (0-20)
[2019-11-21 08:00] VITALS: BP_SYST 132; BP_SYST 166; BP_DIAS 54; BP_DIAS 84
--- NOTE | 2019-11-21 08:00 | NUR ---
AM SHIFT ASSESSMENT: SWELLING TO LT LOWER LEG DOWN AND NOT RED BEFORE. DRESSING TO L. HEEL CLEAN AND DRY, WQELL SECURED.
[2019-11-21] MEDS: HYDROXYCHLOROQUINE SULFATE 200 MG TAB PO SCH ×2 (08:34→20:46)
[2019-11-21] MEDS: METOPROLOL TARTRATE 50 MG TAB PO SCH ×2 (08:34→20:48)
[2019-11-21] MEDS: CLOPIDOGREL BISULFATE 75 MG TAB PO SCH (08:36)
[2019-11-21] MEDS: METOLAZONE 2.5 MG TABLET PO SCH (08:36)
[2019-11-21] MEDS: PREGABALIN 75 MG CAPSULE PO SCH ×2 (08:36→20:46)
[2019-11-21] MEDS: FERROUS SULFATE 325 MG TABLET.DR PO SCH (08:36)
[2019-11-21] MEDS: SERTRALINE HCL 50 MG TABLET PO SCH (08:36)
[2019-11-21] MEDS: CLONIDINE HCL 0.1 MG TABLET PO SCH ×3 (08:52→20:48)
[2019-11-21] MEDS: PRAMIPEXOLE DI-HCL 0.25 MG TABLET PO SCH ×2 (08:52→20:46)
[2019-11-21] MEDS: ZOSYN 3.375GM+NS 50ML 50 ML IV SCH ×2 (10:55→23:10)
[2019-11-21 11:41] VITALS: BP 113/77
--- NOTE | 2019-11-21 12:30 | NUR ---
DR. SIMS IN TO SEE PT. DISCUSSED HEMO-DIALYSIS WITH PT. AND WILL HAVE 1ST. HD TX IN AM. CONSENT HAS BEEN SIGNED. PT. FULLY UNDERSTANDS PROCEDURE. PERMA-CATH IN PLACE AN IS WELL SECURED WITH NO EVIDENCE OF BLEEDING.
--- NOTE | 2019-11-21 14:00 | NUR ---
TO [facility] DEPT. FOR MRI OF LT LOWER EXTREMITY
--- NOTE | 2019-11-21 15:52 | NUR ---
BACK FROM RAD. DEPT. PLACED BACK ON HEART MONITOR.[id number]
[2019-11-21 16:00] VITALS: BP 180/88
--- NOTE | 2019-11-21 19:59 | NUR ---
CONSENT FOR H-D HAS BEEN SIGNED BY PT. VOICES TOTAL UNDERSTANDING OF PROCEDURE
[2019-11-21 20:24] VITALS: BP 164/84
[2019-11-21] MEDS: HEPARIN SODIUM 5000UNIT/ML 1ML VIAL SQ SCH (20:37)
[2019-11-21] MEDS: FAMOTIDINE 20MG TAB 20 MG TAB PO SCH (20:46)
[2019-11-21] MEDS: INSULIN GLARGINE 100 UNITS/ML 10 ML VIAL SQ SCH (20:55)
[2019-11-21] MEDS: ATORVASTATIN CALCIUM 10 MG TABLET PO SCH (20:59)
[2019-11-22] VITALS: BP 143/77
[2019-11-22 04:12] VITALS: BP 139/69
[2019-11-22] MEDS: ACETAMINOPHEN-CODEINE 300/30MG TAB PO PRN (05:09)
--- NOTE | 2019-11-22 05:10 | NUR ---
WOUND PHOTOS TAKEN AND PLACED IN THE CHART. WOUND ON LEFT HEEL 4CMX 2 CM. WOUND CARE PROVIDED, NO MEDIHONEY APPLIED IT IS NOT AVAILABLE AT THIS TIME.
[2019-11-22 05:47] LABS: CREATININE 5.3 mg/dL (0.5-1.5); INR 1.06 (0.85-1.15); MAGNESIUM 1.6 mg/dL (1.80-2.40); PARTIAL THROMBOPLASTIN TIME 30.5 SEC (26.3-35.5); POTASSIUM 3.6 mmol/L (3.5-5.1); PROTHROMBIN TIME 11.4 SEC (9.6-11.6)
--- NOTE | 2019-11-22 06:09 | NUR ---
CHRONIC HEADACHES PT C/O CHRONIC HEADACHES THAT HAVE LASTED SEVERAL MONTHS. PT REPORTS TAKING X2 TYLENOL 500 MG THREE TO FOUR TIMES A DAY OVER SEVERAL MONTHS. PT DOES NOT KNOW THE CAUSE OF THE HEADACHES AND IS UNABLE TO FIND PAIN RELIEF.
[2019-11-22 07:30] VITALS: BP 152/75
[2019-11-22] MEDS: INSULIN HUMULIN R 100 UNIT/ML 3ML SQ SCH ×4 (07:30→21:20)
[2019-11-22] MEDS: HEPARIN SODIUM 5000UNIT/ML 1ML VIAL SQ SCH (09:00)
--- NOTE | 2019-11-22 09:01 | NUR ---
Called Ivonne Hazel LVN, Dialysis nurse director of health education to check when scheduled for dialysis. Per Ivonne, will be dialyzed on third shift, (evening). Notified Ivonne that patient blood pressures trend very high in 170's, even with medications administered and concerned about holding blood pressure medications prior to dialysis. Per Ivonne, recommended to administer medications but hold 13:00 Catapress administration.
[2019-11-22] MEDS: SERTRALINE HCL 50 MG TABLET PO SCH (10:05)
[2019-11-22] MEDS: METOPROLOL TARTRATE 50 MG TAB PO SCH ×2 (10:05→21:00)
[2019-11-22] MEDS: METOLAZONE 2.5 MG TABLET PO SCH (10:05)
[2019-11-22] MEDS: FERROUS SULFATE 325 MG TABLET.DR PO SCH (10:06)
[2019-11-22] MEDS: CLONIDINE HCL 0.1 MG TABLET PO SCH ×4 (10:06→21:22)
[2019-11-22] MEDS: PRAMIPEXOLE DI-HCL 0.25 MG TABLET PO SCH ×2 (10:06→21:00)
[2019-11-22] MEDS: HYDROXYCHLOROQUINE SULFATE 200 MG TAB PO SCH ×2 (10:06→21:21)
[2019-11-22] MEDS: PREGABALIN 75 MG CAPSULE PO SCH ×2 (10:09→21:21)
[2019-11-22] MEDS: ZOSYN 3.375GM+NS 50ML 50 ML IV SCH ×2 (10:09→22:43)
[2019-11-22] MEDS: MORPHINE SULFATE 2 MG/ML 1ML SYG IV PRN ×2 (10:21→21:29)
[2019-11-22 11:02] VITALS: BP 157/84
[2019-11-22 12:38] LABS: HEMATOCRIT 31.8 % (42-54)
[2019-11-22] MEDS: CLOPIDOGREL BISULFATE 75 MG TAB PO SCH (12:47)
[2019-11-22 13:00] LABS: ALBUMIN 2.3 g/dL (3.5-5.0); CREATININE 5.1 mg/dL (0.5-1.5)
[2019-11-22 13:01] LABS: HEMOGLOBIN A1C 7.7 % (4.0-6.0)
[2019-11-22 13:59] LABS: % IRON SATURATION 60.8 % (30-44)
[2019-11-22] MEDS ORDERED: NITROGLYCERIN 0.4 MG SL TAB SL PRN ×2 (15:45→16:45)
[2019-11-22] MEDS ORDERED: SODIUM CHLORIDE 0.9% 1000ML 1,000 ML IV PRN ×2 (15:45→16:45)
[2019-11-22] MEDS ORDERED: LIDOCAINE HCL-MPF 1% 2ML VIAL IJ PRN ×2 (15:45→16:45)
[2019-11-22] MEDS ORDERED: ACETAMINOPHEN 325 MG TAB PO PRN ×2 (15:45→16:45)
[2019-11-22] MEDS ORDERED: HEPARIN SODIUM 5000UNIT/ML 1ML VIAL IJ PRN ×4 (15:45→16:45)
[2019-11-22] MEDS ORDERED: 0.9% SODIUM CHLORIDE 1000 ML IV BAG IV PRN ×2 (15:45→16:45)
[2019-11-22] MEDS: LOPERAMIDE HCL 2 MG CAP PO SCH (16:00)
[2019-11-22 16:10] VITALS: BP 151/87
[2019-11-22] MEDS: VANCOMYCIN 1.75 GM in SODIUM CHLORIDE 0.9% 250 ML IV SCH (16:19)
[2019-11-22 19:53] VITALS: BP 138/62
[2019-11-22] MEDS: INSULIN GLARGINE 100 UNITS/ML 10 ML VIAL SQ SCH (21:18)
[2019-11-22] MEDS: ATORVASTATIN CALCIUM 10 MG TABLET PO SCH (21:20)
[2019-11-22] MEDS: FAMOTIDINE 20MG TAB 20 MG TAB PO SCH (21:20)
[2019-11-22] MEDS: HYDRALAZINE HCL 20 MG/ML VIAL IV PRN (23:02)
[2019-11-23] VITALS (8 sets, daily range): BP systolic 106–161; BP diastolic 58–89
[2019-11-23] MEDS: INSULIN HUMULIN R 100 UNIT/ML 3ML SQ SCH ×4 (05:47→20:41)
[2019-11-23 06:15] LABS: CREATININE 4.8 mg/dL (0.5-1.5); MAGNESIUM 1.6 mg/dL (1.80-2.40); POTASSIUM 3.1 mmol/L (3.5-5.1)
[2019-11-23] MEDS: PREGABALIN 75 MG CAPSULE PO SCH ×2 (08:15→20:36)
[2019-11-23] MEDS: CLOPIDOGREL BISULFATE 75 MG TAB PO SCH (08:15)
[2019-11-23] MEDS: HYDROXYCHLOROQUINE SULFATE 200 MG TAB PO SCH ×2 (08:15→20:48)
[2019-11-23] MEDS: FERROUS SULFATE 325 MG TABLET.DR PO SCH (08:15)
[2019-11-23] MEDS: METOLAZONE 2.5 MG TABLET PO SCH (08:16)
[2019-11-23] MEDS: PRAMIPEXOLE DI-HCL 0.25 MG TABLET PO SCH ×2 (08:16→20:37)
[2019-11-23] MEDS: SERTRALINE HCL 50 MG TABLET PO SCH (08:16)
[2019-11-23] MEDS: CLONIDINE HCL 0.1 MG TABLET PO SCH ×4 (08:17→20:48)
[2019-11-23] MEDS: METOPROLOL TARTRATE 50 MG TAB PO SCH ×2 (08:18→20:36)
[2019-11-23] MEDS: ZOSYN 3.375GM+NS 50ML 50 ML IV SCH ×2 (12:10→22:31)
[2019-11-23] MEDS: ACETAMINOPHEN-CODEINE 300/30MG TAB PO PRN (12:18)
[2019-11-23] MEDS: MORPHINE SULFATE 2 MG/ML 1ML SYG IV PRN ×2 (13:12→22:31)
[2019-11-23] MEDS: VANCOMYCIN 1.75 GM in SODIUM CHLORIDE 0.9% 250 ML IV SCH (15:00)
--- NOTE | 2019-11-23 15:19 | NUR ---
EMELY Note: [facility] pending approval and chair time CM spoke to pt, now agreeable for outpatient dialysis w/[facility] in [place], HUNG signed. Faxed order, clinicals, PT, Dialysis #1,#2, pending #3 and lab results. Will fax once available. Pt pending approval and chair time. Primary nurse aware. CM to cont to follow up.
[2019-11-23] MEDS: LOPERAMIDE HCL 2 MG CAP PO SCH (16:00)
[2019-11-23] MEDS ORDERED: HONEY 1 APPL/ML TUBE TP ONE (18:43)
[2019-11-23] MEDS: ATORVASTATIN CALCIUM 10 MG TABLET PO SCH (20:36)
[2019-11-23] MEDS: FAMOTIDINE 20MG TAB 20 MG TAB PO SCH (20:37)
[2019-11-23] MEDS: INSULIN GLARGINE 100 UNITS/ML 10 ML VIAL SQ SCH (20:40)
[2019-11-24 03:45] VITALS: BP 138/74
[2019-11-24] MEDS: INSULIN HUMULIN R 100 UNIT/ML 3ML SQ SCH ×4 (05:46→20:48)
[2019-11-24 06:07] LABS: HEMATOCRIT 30.8 % (42-54); MEAN CORPUSCULAR HEMOGLOBIN 29.5 pg (27.0-33.0); MEAN CORPUSCULAR HGB CONC 33.1 g/dL (32.0-36.0); RED BLOOD CELL COUNT(AUTO) 3.46 MIL/uL (4.50-6.20); RED CELL DISTRIBUTION WIDTH 14.9 % (11.0-15.5)
[2019-11-24 06:27] LABS: ALBUMIN 2.1 g/dL (3.5-5.0); CREATININE 4.6 mg/dL (0.5-1.5); PHOSPHORUS 5.8 mg/dL (2.5-4.9); POTASSIUM 3.7 mmol/L (3.5-5.1)
[2019-11-24 08:30] VITALS: BP_SYST 128; BP_SYST 163; BP_DIAS 63; BP_DIAS 73
[2019-11-24] MEDS: PREGABALIN 75 MG CAPSULE PO SCH ×2 (09:04→19:53)
[2019-11-24] MEDS: HYDROXYCHLOROQUINE SULFATE 200 MG TAB PO SCH ×2 (09:04→19:53)
[2019-11-24] MEDS: METOPROLOL TARTRATE 50 MG TAB PO SCH ×2 (09:04→19:54)
[2019-11-24] MEDS: SERTRALINE HCL 50 MG TABLET PO SCH (09:04)
[2019-11-24] MEDS: CLONIDINE HCL 0.1 MG TABLET PO SCH ×4 (09:05→19:53)
[2019-11-24] MEDS: CLOPIDOGREL BISULFATE 75 MG TAB PO SCH (09:06)
[2019-11-24] MEDS: METOLAZONE 2.5 MG TABLET PO SCH (09:06)
[2019-11-24] MEDS: PRAMIPEXOLE DI-HCL 0.25 MG TABLET PO SCH ×2 (09:07→19:54)
[2019-11-24] MEDS: FERROUS SULFATE 325 MG TABLET.DR PO SCH (09:07)
[2019-11-24] MEDS: HONEY 1 APPL/ML TUBE TP SCH (09:14)
[2019-11-24] MEDS: ZOSYN 3.375GM+NS 50ML 50 ML IV SCH ×2 (10:28→21:24)
[2019-11-24 11:11] VITALS: BP 144/76
--- NOTE | 2019-11-24 12:32 | NUR ---
CM Note: [facility] Aiken pending approval and chair time. CM spoke to Danica carter/[facility]once, made aware pt still pending Hep B panel and dialysis #3, will send notes once available. Pt pending approval and chair time. Primary nurse aware. CM to cont to follow up.
--- NOTE | 2019-11-24 12:45 | NUR ---
STARTED ON 3RD.HEMO-DIALYSIS TX. NOW.
--- NOTE | 2019-11-24 15:45 | NUR ---
H-D TX COMPLETE, 1.5 LITER REMOVED. FEELING TIRED BUT BETTER
[2019-11-24] MEDS: LOPERAMIDE HCL 2 MG CAP PO SCH (16:00)
--- NOTE | 2019-11-24 16:00 | NUR ---
DRESSING TO LT. HEEL CHANGED. WOUND (ULCER) DRY, AREA LOOKS CALLOUS. CLEANED WITH NS, APPLIED MEDI-HONEY AND COVERED.
[2019-11-24 16:47] VITALS: BP 119/70
[2019-11-24] MEDS: MORPHINE SULFATE 2 MG/ML 1ML SYG IV PRN (17:07)
[2019-11-24] MEDS: INSULIN GLARGINE 100 UNITS/ML 10 ML VIAL SQ SCH (19:50)
[2019-11-24] MEDS: ATORVASTATIN CALCIUM 10 MG TABLET PO SCH (19:53)
[2019-11-24] MEDS: FAMOTIDINE 20MG TAB 20 MG TAB PO SCH (19:54)
[2019-11-24 20:00] VITALS: BP 141/73
[2019-11-25] VITALS: BP 127/68
[2019-11-25 04:00] VITALS: BP 145/60
[2019-11-25 04:06] LABS: HEMATOCRIT 31.4 % (42-54); MEAN CORPUSCULAR HEMOGLOBIN 29.6 pg (27.0-33.0); MEAN CORPUSCULAR HGB CONC 34.1 g/dL (32.0-36.0); MEAN CORPUSCULAR VOLUME 86.7 fL (79-99); RED BLOOD CELL COUNT(AUTO) 3.62 MIL/uL (4.50-6.20); RED CELL DISTRIBUTION WIDTH 14.7 % (11.0-15.5); WHITE BLOOD COUNT (AUTO) 6.1 K/uL (4.8-10.8)
[2019-11-25 04:23] LABS: CREATININE 4.5 mg/dL (0.5-1.5); POTASSIUM 3.2 mmol/L (3.5-5.1)
[2019-11-25] MEDS: INSULIN HUMULIN R 100 UNIT/ML 3ML SQ SCH ×4 (05:36→20:24)
[2019-11-25 08:00] VITALS: BP 122/67
[2019-11-25] MEDS: METOPROLOL TARTRATE 50 MG TAB PO SCH ×2 (09:00→20:30)
[2019-11-25] MEDS: HYDROXYCHLOROQUINE SULFATE 200 MG TAB PO SCH ×2 (10:38→20:33)
[2019-11-25] MEDS: PREGABALIN 75 MG CAPSULE PO SCH ×2 (10:38→20:29)
[2019-11-25] MEDS: CLONIDINE HCL 0.1 MG TABLET PO SCH ×4 (10:39→20:29)
[2019-11-25] MEDS: METOLAZONE 2.5 MG TABLET PO SCH (10:40)
[2019-11-25] MEDS: SERTRALINE HCL 50 MG TABLET PO SCH (10:40)
[2019-11-25] MEDS: PRAMIPEXOLE DI-HCL 0.25 MG TABLET PO SCH ×2 (10:40→20:30)
[2019-11-25] MEDS: CLOPIDOGREL BISULFATE 75 MG TAB PO SCH (10:41)
[2019-11-25] MEDS: HONEY 1 APPL/ML TUBE TP SCH (10:41)
[2019-11-25] MEDS: ZOSYN 3.375GM+NS 50ML 50 ML IV SCH ×2 (10:41→20:29)
[2019-11-25] MEDS: FERROUS SULFATE 325 MG TABLET.DR PO SCH (10:41)
[2019-11-25 12:00] VITALS: BP 138/71
--- NOTE | 2019-11-25 12:46 | NUR ---
CM Note: [facility] approval TTS @ 2:45pm CM received letter from [facility] pt has approval for [facility]. TTS @ 2:45pm, first appt December 01. Pt given updated and letter of approval. Instructed pt to arrive 30min prior to appointment, to bring ID card and Insurance card and all medication bottles. Verbalized understanding. Primary nurse Caridad made aware. Primary nurse aware to call [facility] to sched follow up appt w/[facility] as outpatient. CM to cont to follow up
[2019-11-25 16:00] VITALS: BP 124/68
[2019-11-25] MEDS: LOPERAMIDE HCL 2 MG CAP PO SCH (16:00)
--- NOTE | 2019-11-25 16:49 | NUR ---
attempted to call juliet molinap to report the blood sugar of 367 no answer.
[2019-11-25 20:00] VITALS: BP 131/56
--- NOTE | 2019-11-25 20:19 | NUR ---
SPOKE WITH ASHLEIGH LAY FROM [facility] ABOUT POSSIBLE ARTERIOGRAM. SHE DOES NOT HAVE THE PATIENT ON HER LIST OR CENSUS. SHE RECOMMENDS TO SPEAK WITH BENCHMARK PRIMARY DOCTOR TO ASK HIM ABOUT THE PLAN FOR THE PATIENT AND/OR CONSULT CARDIOLOGY AGAIN.
[2019-11-25] MEDS: INSULIN GLARGINE 100 UNITS/ML 10 ML VIAL SQ SCH (20:26)
[2019-11-25] MEDS: FAMOTIDINE 20MG TAB 20 MG TAB PO SCH (20:29)
[2019-11-25] MEDS: ATORVASTATIN CALCIUM 10 MG TABLET PO SCH (20:30)
--- NOTE | 2019-11-25 21:00 | NUR ---
change dressing on left heel and took picture. placed them on the chart
--- NOTE | 2019-11-25 23:40 | NUR ---
doctor garcia rounded and asked if patient is having an arteriogram or not. will call cardiology again in the am
[2019-11-26] VITALS (7 sets, daily range): BP systolic 118–156; BP diastolic 65–85
[2019-11-26] MEDS: INSULIN HUMULIN R 100 UNIT/ML 3ML SQ SCH ×4 (05:35→21:10)
[2019-11-26 06:12] LABS: HEMATOCRIT 30.9 % (42-54); MEAN CORPUSCULAR HEMOGLOBIN 28.5 pg (27.0-33.0); MEAN CORPUSCULAR HGB CONC 32.7 g/dL (32.0-36.0); RED BLOOD CELL COUNT(AUTO) 3.55 MIL/uL (4.50-6.20); RED CELL DISTRIBUTION WIDTH 14.9 % (11.0-15.5); WHITE BLOOD COUNT (AUTO) 7.8 K/uL (4.8-10.8)
[2019-11-26 06:36] LABS: CREATININE 5.6 mg/dL (0.5-1.5); POTASSIUM 3.4 mmol/L (3.5-5.1)
[2019-11-26] MEDS: CLONIDINE HCL 0.1 MG TABLET PO SCH ×4 (09:00→21:01)
[2019-11-26] MEDS: METOPROLOL TARTRATE 50 MG TAB PO SCH ×2 (09:00→21:00)
[2019-11-26] MEDS: PREGABALIN 75 MG CAPSULE PO SCH ×2 (09:21→21:00)
[2019-11-26] MEDS: SERTRALINE HCL 50 MG TABLET PO SCH (09:22)
[2019-11-26] MEDS: HYDROXYCHLOROQUINE SULFATE 200 MG TAB PO SCH ×2 (09:22→21:01)
[2019-11-26] MEDS: PRAMIPEXOLE DI-HCL 0.25 MG TABLET PO SCH ×2 (09:22→21:01)
[2019-11-26] MEDS: METOLAZONE 2.5 MG TABLET PO SCH (09:22)
[2019-11-26] MEDS: FERROUS SULFATE 325 MG TABLET.DR PO SCH (09:22)
[2019-11-26] MEDS: CLOPIDOGREL BISULFATE 75 MG TAB PO SCH (09:26)
[2019-11-26] MEDS: HONEY 1 APPL/ML TUBE TP SCH (09:49)
[2019-11-26] MEDS ORDERED: AMOX-426 PO (11:34)
[2019-11-26] MEDS: ZOSYN 3.375GM+NS 50ML 50 ML IV SCH ×2 (12:18→21:10)
--- NOTE | 2019-11-26 12:46 | NUR ---
[facility] consult Patient assessed as ordered. Patient with ulcer to left heel. [facility] recommendations updated and submitted. Wound consult requested for Dr. Darío Plascencia. Addendum: 11/26/19 at 1248 by ODALYS [place] LVN Amended: Links added.
--- NOTE | 2019-11-26 15:20 | NUR ---
CM Note: [facility] approval TTS @ 2:45pm CM faxed dialysis #3 to [facility] intake. Pt still pending Hep B result. Spoke to Aisha carter/soy, stated there is a delay with lab results currently. CM pending to fax Hep B result to [facility] once resulted.
[2019-11-26] MEDS: LOPERAMIDE HCL 2 MG CAP PO SCH (16:00)
[2019-11-26] MEDS ORDERED: ACETAMINOPHEN 325 MG TAB PO PRN (16:45)
[2019-11-26] MEDS ORDERED: SODIUM CHLORIDE 0.9% 1000ML 1,000 ML IV PRN (16:45)
[2019-11-26] MEDS ORDERED: HEPARIN SODIUM 5000UNIT/ML 1ML VIAL IJ PRN (16:45)
[2019-11-26] MEDS ORDERED: 0.9% SODIUM CHLORIDE 1000 ML IV BAG IV PRN (16:45)
[2019-11-26] MEDS: HEPARIN SODIUM 5000UNIT/ML 1ML VIAL SQ SCH (19:50)
[2019-11-26] MEDS: ATORVASTATIN CALCIUM 10 MG TABLET PO SCH (21:00)
[2019-11-26] MEDS: ACETAMINOPHEN-CODEINE 300/30MG TAB PO PRN (21:00)
[2019-11-26] MEDS: FAMOTIDINE 20MG TAB 20 MG TAB PO SCH (21:01)
[2019-11-26] MEDS: VANCOMYCIN 1.75 GM in SODIUM CHLORIDE 0.9% 250 ML IV SCH (21:05)
[2019-11-26] MEDS: INSULIN GLARGINE 100 UNITS/ML 10 ML VIAL SQ SCH (21:10)
--- NOTE | 2019-11-26 21:50 | NUR ---
MD ROUND DR. SIMS TO SEE AND EXAMEN PATIENT WITH ORDERS,ASK DR. SIMS REGARDING NEED FOR SURGERY FOR POSSIBLE AV GRAFT/FISTULA FOR FUTURE, DR. SIMS SAID NO NEED AT THIS TIME, NEED FOR INTERVENTIONAL RADIOLOGIST TO CHANGE COLLINS CATHETER TO PERMA CATHETER, WINDSHIELD INSTALLER KAMERON Trimble NOTIFIED OF PENDING PROCEDURE AND ORDER FAXED
[2019-11-27] MEDS: ACETAMINOPHEN-CODEINE 300/30MG TAB PO PRN ×2 (03:08→18:37)
[2019-11-27 04:00] VITALS: BP 132/72
[2019-11-27 05:34] LABS: INR 0.99 (0.85-1.15); PARTIAL THROMBOPLASTIN TIME 29.3 SEC (26.3-35.5); PROTHROMBIN TIME 10.7 SEC (9.6-11.6)
[2019-11-27] MEDS: INSULIN HUMULIN R 100 UNIT/ML 3ML SQ SCH ×4 (06:07→20:56)
[2019-11-27 07:55] VITALS: BP 122/70
[2019-11-27] MEDS: METOPROLOL TARTRATE 50 MG TAB PO SCH ×2 (09:00→20:55)
[2019-11-27] MEDS: HONEY 1 APPL/ML TUBE TP SCH (09:00)
[2019-11-27] MEDS: ZOSYN 3.375GM+NS 50ML 50 ML IV SCH ×2 (10:57→23:02)
--- NOTE | 2019-11-27 11:11 | NUR ---
[address] to IR spoke to Dr Allan for perma cath placement as per IR this is non emergent can be done on friday as out pt. primary nurse notified and to follow up with ordering physician verbalized understanding . Faraz pisano
[2019-11-27] MEDS: HYDROXYCHLOROQUINE SULFATE 200 MG TAB PO SCH ×2 (11:34→20:55)
[2019-11-27] MEDS: METOLAZONE 2.5 MG TABLET PO SCH (11:34)
[2019-11-27] MEDS: PREGABALIN 75 MG CAPSULE PO SCH ×2 (11:34→20:59)
[2019-11-27] MEDS: SERTRALINE HCL 50 MG TABLET PO SCH (11:34)
[2019-11-27] MEDS: CLONIDINE HCL 0.1 MG TABLET PO SCH ×4 (11:34→20:54)
[2019-11-27] MEDS: PRAMIPEXOLE DI-HCL 0.25 MG TABLET PO SCH ×2 (11:36→20:59)
[2019-11-27] MEDS: FERROUS SULFATE 325 MG TABLET.DR PO SCH (11:41)
[2019-11-27 11:46] VITALS: BP 146/76
[2019-11-27] MEDS: LOPERAMIDE HCL 2 MG CAP PO SCH (16:00)
[2019-11-27 16:37] VITALS: BP 137/90
[2019-11-27 19:41] VITALS: BP 125/82
[2019-11-27] MEDS: ATORVASTATIN CALCIUM 10 MG TABLET PO SCH (20:54)
[2019-11-27] MEDS: FAMOTIDINE 20MG TAB 20 MG TAB PO SCH (20:55)
[2019-11-27] MEDS: INSULIN GLARGINE 100 UNITS/ML 10 ML VIAL SQ SCH (20:57)
[2019-11-27 23:13] VITALS: BP 145/68
[2019-11-28 03:15] VITALS: BP 160/86
[2019-11-28] MEDS: INSULIN HUMULIN R 100 UNIT/ML 3ML SQ SCH ×4 (06:13→20:51)
[2019-11-28 07:39] VITALS: BP 118/73
[2019-11-28 07:53] LABS: HEMATOCRIT 32.7 % (42-54); MEAN CORPUSCULAR HEMOGLOBIN 29.4 pg (27.0-33.0); MEAN CORPUSCULAR VOLUME 89.1 fL (79-99); RED BLOOD CELL COUNT(AUTO) 3.67 MIL/uL (4.50-6.20); RED CELL DISTRIBUTION WIDTH 15.2 % (11.0-15.5); WHITE BLOOD COUNT (AUTO) 6.8 K/uL (4.8-10.8)
[2019-11-28] MEDS: CLONIDINE HCL 0.1 MG TABLET PO SCH ×4 (07:57→20:36)
[2019-11-28] MEDS: METOPROLOL TARTRATE 50 MG TAB PO SCH ×3 (07:57→20:35)
[2019-11-28] MEDS: SERTRALINE HCL 50 MG TABLET PO SCH (07:58)
[2019-11-28] MEDS: METOLAZONE 2.5 MG TABLET PO SCH (07:58)
[2019-11-28] MEDS: PRAMIPEXOLE DI-HCL 0.25 MG TABLET PO SCH ×2 (07:58→20:36)
[2019-11-28] MEDS: FERROUS SULFATE 325 MG TABLET.DR PO SCH (07:58)
[2019-11-28] MEDS: HYDROXYCHLOROQUINE SULFATE 200 MG TAB PO SCH ×2 (07:58→20:37)
[2019-11-28] MEDS: PREGABALIN 75 MG CAPSULE PO SCH ×2 (07:58→20:36)
[2019-11-28] MEDS: HONEY 1 APPL/ML TUBE TP SCH (07:59)
[2019-11-28] MEDS: ACETAMINOPHEN-CODEINE 300/30MG TAB PO PRN ×2 (08:05→18:52)
[2019-11-28 08:07] LABS: CREATININE 5.8 mg/dL (0.5-1.5); POTASSIUM 3.6 mmol/L (3.5-5.1)
[2019-11-28] MEDS: ZOSYN 3.375GM+NS 50ML 50 ML IV SCH ×2 (10:49→23:14)
[2019-11-28 11:52] VITALS: BP 149/69
[2019-11-28] MEDS: LOPERAMIDE HCL 2 MG CAP PO SCH (16:00)
[2019-11-28 16:53] VITALS: BP 169/88
[2019-11-28 20:00] VITALS: BP 167/79
[2019-11-28] MEDS: ATORVASTATIN CALCIUM 10 MG TABLET PO SCH (20:35)
[2019-11-28] MEDS: FAMOTIDINE 20MG TAB 20 MG TAB PO SCH (20:35)
[2019-11-28] MEDS: INSULIN GLARGINE 100 UNITS/ML 10 ML VIAL SQ SCH (20:38)
[2019-11-28 23:34] VITALS: BP 180/86
[2019-11-29 04:00] VITALS: BP 168/81
[2019-11-29] MEDS: INSULIN HUMULIN R 100 UNIT/ML 3ML SQ SCH ×4 (07:30→21:48)
[2019-11-29] MEDS ORDERED: LIDOCAINE HCL 1% MDV 50ML VIAL ONE (08:30)
[2019-11-29 08:31] VITALS: BP 153/96
[2019-11-29] MEDS: HONEY 1 APPL/ML TUBE TP SCH (09:00)
[2019-11-29] MEDS: HYDROXYCHLOROQUINE SULFATE 200 MG TAB PO SCH ×2 (09:23→21:38)
[2019-11-29] MEDS: METOPROLOL TARTRATE 50 MG TAB PO SCH ×2 (09:23→21:00)
[2019-11-29] MEDS: PREGABALIN 75 MG CAPSULE PO SCH ×2 (09:23→21:38)
[2019-11-29] MEDS: SERTRALINE HCL 50 MG TABLET PO SCH (09:23)
[2019-11-29] MEDS: CLONIDINE HCL 0.1 MG TABLET PO SCH ×4 (09:24→21:40)
[2019-11-29] MEDS: METOLAZONE 2.5 MG TABLET PO SCH (09:25)
[2019-11-29] MEDS: FERROUS SULFATE 325 MG TABLET.DR PO SCH (09:25)
[2019-11-29] MEDS: PRAMIPEXOLE DI-HCL 0.25 MG TABLET PO SCH ×2 (09:25→21:38)
[2019-11-29 11:28] VITALS: BP 137/70
[2019-11-29] MEDS: CLOPIDOGREL BISULFATE 75 MG TAB PO SCH (15:02)
[2019-11-29] MEDS: ASPIRIN 81MG TAB.CHEW PO SCH (15:02)
[2019-11-29] MEDS: LOPERAMIDE HCL 2 MG CAP PO SCH (16:00)
--- NOTE | 2019-11-29 16:27 | NUR ---
RD FOLLOW UP Pt NPO at time of Screen, pending Cath placement and Hemodialysis, as per EMR. Pt previously tolerating diet order with no report of GI distress, Good appetite at 100%. Elevated BG(205). Altered renal labs, pending Dialysis. Recommend advance diet to 75gm CC, Renal Dialysis diet order when medically feasible RD to continue to monitor. Addendum: 11/29/19 at [address] Amended: Links added.
[2019-11-29 20:40] VITALS: BP 148/89
[2019-11-29] MEDS ORDERED: PREDNISONE 20 MG TABLET PO SCH (21:00)
[2019-11-29] MEDS ORDERED: DIPHENHYDRAMINE HCL 25 MG CAPSULE PO SCH (21:00)
[2019-11-29] MEDS: FAMOTIDINE 20MG TAB 20 MG TAB PO SCH (21:38)
[2019-11-29] MEDS: ATORVASTATIN CALCIUM 10 MG TABLET PO SCH (21:38)
[2019-11-29] MEDS: INSULIN GLARGINE 100 UNITS/ML 10 ML VIAL SQ SCH (21:44)
[2019-11-29 23:29] VITALS: BP 142/94
[2019-11-30 03:46] VITALS: BP 184/91
[2019-11-30] MEDS: HYDRALAZINE HCL 20 MG/ML VIAL IV PRN (06:21)
[2019-11-30] MEDS: INSULIN HUMULIN R 100 UNIT/ML 3ML SQ SCH ×4 (06:24→20:36)
[2019-11-30 07:30] VITALS: BP 149/90
[2019-11-30] MEDS: DIPHENHYDRAMINE HCL 25 MG CAPSULE PO SCH (08:33)
[2019-11-30] MEDS: FERROUS SULFATE 325 MG TABLET.DR PO SCH (08:33)
[2019-11-30] MEDS: METOLAZONE 2.5 MG TABLET PO SCH (08:33)
[2019-11-30] MEDS: SERTRALINE HCL 50 MG TABLET PO SCH (08:33)
[2019-11-30] MEDS: CLONIDINE HCL 0.1 MG TABLET PO SCH ×4 (08:34→20:33)
[2019-11-30] MEDS: FAMOTIDINE 20MG TAB 20 MG TAB PO SCH ×2 (08:34→20:32)
[2019-11-30] MEDS: PRAMIPEXOLE DI-HCL 0.25 MG TABLET PO SCH ×2 (08:35→20:32)
[2019-11-30] MEDS: HYDROXYCHLOROQUINE SULFATE 200 MG TAB PO SCH ×2 (08:35→20:33)
[2019-11-30] MEDS: ASPIRIN 81MG TAB.CHEW PO SCH (08:35)
[2019-11-30] MEDS: CLOPIDOGREL BISULFATE 75 MG TAB PO SCH (08:35)
[2019-11-30] MEDS: PREDNISONE 20 MG TABLET PO SCH (08:35)
[2019-11-30] MEDS: PREGABALIN 75 MG CAPSULE PO SCH ×2 (08:36→20:33)
[2019-11-30] MEDS: METOPROLOL TARTRATE 50 MG TAB PO SCH ×2 (08:36→20:32)
[2019-11-30] MEDS: HONEY 1 APPL/ML TUBE TP SCH (08:37)
[2019-11-30 11:00] VITALS: BP 153/54
--- NOTE | 2019-11-30 11:33 | NUR ---
Pt has ABD aortic angiogram with runoffs ordered by Dr Rangel. Reported iodine allergy to SANJANA Rizzo. Rec'd orders for solumedrol 125 mg iv, and benadryl 50 mg oncall.
[2019-11-30 11:38] LABS: CREATININE 5.8 mg/dL (0.5-1.5); POTASSIUM 3.7 mmol/L (3.5-5.1)
[2019-11-30] MEDS ORDERED: DiphenhydrAMINE HCL 50 MG/ML VIAL IV SCH (11:45)
[2019-11-30] MEDS ORDERED: METHYLPREDNISOLONE SOD SUCC 125MG/2ML VIAL IVP SCH (11:45)
[2019-11-30] MEDS ORDERED: IOHEXOL-350 50ML VIAL IV ONE (12:36)
[2019-11-30] MEDS ORDERED: IOHEXOL 350 MG/ML 100ML INFUS..BTL IV ONE (12:37)
--- NOTE | 2019-11-30 13:00 | NUR ---
UPLOADED HEP B AND PERMACATH PROCEDURE [facility] REQUESTED EXPECTING APPROVAL
[2019-11-30 16:00] VITALS: BP 20/99
[2019-11-30] MEDS: LOPERAMIDE HCL 2 MG CAP PO SCH (16:00)
[2019-11-30 20:24] VITALS: BP 152/75
[2019-11-30] MEDS: DOCUSATE SODIUM 100 MG CAP PO SCH (20:31)
[2019-11-30] MEDS: ATORVASTATIN CALCIUM 10 MG TABLET PO SCH (20:33)
--- NOTE | 2019-11-30 20:35 | NUR ---
MEDS SHIFT ASSESSMENT DONE, PLEASE REFER TO CHART.DUE MEDS ADMINISTERED, TOLERATED WELL. KEPT RESTED AND COMFORTABLE. CALL LIGHT WITHIN REACH. WILL MONITOR PT. Addendum: 11/30/19 at 2227 by BLANCA BALDERRAMA RN RN Amended: Links added.
[2019-11-30] MEDS: INSULIN GLARGINE 100 UNITS/ML 10 ML VIAL SQ SCH (20:36)
--- NOTE | 2019-11-30 20:55 | NUR ---
HD CALLED HD NURSE ROLL FORMER, SPOKE WITH NGUYEN. EXPLAINED PT NOT GETTING DIALIZED SINCE FRIDAY. STATED WILL LINDSAY NURSE ROLL FORMER AND WILL CALL BACK.
--- NOTE | 2019-11-30 22:10 | NUR ---
HD CALLED NGUYEN FROM DIALYSIS AGAIN SINCE NO LINDSAY BACK RECEIVED. NGUYEN INFORMS SLICE CUTTING MACHINE OPERATOR HELPER THAT A HD NURSE IS COMING IN [facility] TO DIALIZE PT. PT MADE AWARE.
--- NOTE | 2019-11-30 22:32 | NUR ---
HD HD NURSE IN TO DO TREATMENT.
--- NOTE | 2019-11-30 22:40 | NUR ---
NEPHRO DR SIMS CALLED BY DIALYSIS NURSE AND MD STATED NOT TO DIALIZE PT TODAY BUT TOMORROW. ORDER PLACED IN THE CHART.
[2019-12-01 00:20] VITALS: BP 152/82
--- NOTE | 2019-12-01 02:00 | NUR ---
ROUNDS PT RESTING WELL, FAIRLY ASLEEP WITH RESPIRATIONS EVEN AND UNLABORED. NO NOTED DISTRESS. KEPT UNDISTURBED FOR NOW. WILL MONITOR PT. CALL LIGHT WITHIN REACH.
[2019-12-01 04:30] VITALS: BP 175/87
[2019-12-01 05:04] LABS: HEMATOCRIT 33.4 % (42-54); MEAN CORPUSCULAR HEMOGLOBIN 28.4 pg (27.0-33.0); MEAN CORPUSCULAR HGB CONC 32.6 g/dL (32.0-36.0); RED BLOOD CELL COUNT(AUTO) 3.84 MIL/uL (4.50-6.20); RED CELL DISTRIBUTION WIDTH 15.1 % (11.0-15.5); WHITE BLOOD COUNT (AUTO) 5.1 K/uL (4.8-10.8)
[2019-12-01 05:13] LABS: CREATININE 6.4 mg/dL (0.5-1.5); POTASSIUM 3.7 mmol/L (3.5-5.1)
--- NOTE | 2019-12-01 06:05 | NUR ---
BLOOD SUGAR PT'S BLOOD SUGAR STILL ELEVATED AT 320, DUE INSULIN ADMINISTERED. PT IS AWARE THAT ELEVATED BLOOD SUGAR IS DUE TO PRE-MEDS GIVEN BEFORE CT ANGIO DONE YESTERDAY. FOR MORE CARE.
[2019-12-01] MEDS: INSULIN HUMULIN R 100 UNIT/ML 3ML SQ SCH ×3 (06:13→17:07)
[2019-12-01] MEDS: DIPHENHYDRAMINE HCL 25 MG CAPSULE PO SCH (07:57)
[2019-12-01] MEDS: PREDNISONE 20 MG TABLET PO SCH (07:58)
[2019-12-01] MEDS: FAMOTIDINE 20MG TAB 20 MG TAB PO SCH (07:59)
[2019-12-01] MEDS: LOPERAMIDE HCL 2 MG CAP PO SCH (08:00)
[2019-12-01 08:17] VITALS: BP 155/76
[2019-12-01] MEDS: METOPROLOL TARTRATE 50 MG TAB PO SCH (09:00)
--- NOTE | 2019-12-01 09:36 | NUR ---
Per Dr. Rangel, CTA performed yesterday. Recommendation is to continue medical management, no catheterization necessary, may follow up as outpatient 1-2 weeks. REcommends to go home on aspirin and plavix.
[2019-12-01] MEDS: HYDROXYCHLOROQUINE SULFATE 200 MG TAB PO SCH (10:19)
[2019-12-01] MEDS: PRAMIPEXOLE DI-HCL 0.25 MG TABLET PO SCH (10:20)
[2019-12-01] MEDS: FERROUS SULFATE 325 MG TABLET.DR PO SCH (10:20)
[2019-12-01] MEDS: ASPIRIN 81MG TAB.CHEW PO SCH (10:20)
[2019-12-01] MEDS: PREGABALIN 75 MG CAPSULE PO SCH (10:21)
[2019-12-01] MEDS: SERTRALINE HCL 50 MG TABLET PO SCH (10:21)
[2019-12-01] MEDS: CLOPIDOGREL BISULFATE 75 MG TAB PO SCH (10:22)
[2019-12-01] MEDS: DOCUSATE SODIUM 100 MG CAP PO SCH (10:22)
[2019-12-01] MEDS: HONEY 1 APPL/ML TUBE TP SCH (10:23)
[2019-12-01 10:30] VITALS: BP 155/76
[2019-12-01] MEDS: METOLAZONE 2.5 MG TABLET PO SCH (12:22)
[2019-12-01] MEDS: CLONIDINE HCL 0.1 MG TABLET PO SCH ×3 (13:00→17:04)
[2019-12-01 16:00] VITALS: BP 152/79
[2019-12-01 17:04] VITALS: BP 152/79
[2019-12-01] MEDS ORDERED: TRAMADOL HCL 50 MG TABLET PO PRN (17:45)
[2019-12-01] MEDS ORDERED: TRAMADOL HCL 50 MG TABLET ONE (17:52)
--- NOTE | 2019-12-01 18:15 | NUR ---
Provided report to Amadeo Arrington RN of [facility].
--- NOTE | 2019-12-01 19:00 | NUR ---
Received call from Pat at dialysis center that hepatic panel labs were not received and patient cannot start dialysis 12/02/19 unless faxed over this evening. Hepatic panel results faxed, and received confirmation of complete submission.
[2019-12-02] MEDS ORDERED: MAGNESIUM HYDROXIDE 30 ML/UDCUP PO SCH (09:00)
[2020-03-18] MEDS ORDERED: LINA5TAB PO (00:51)
[2020-03-18] MEDS ORDERED: ASPI-1443 PO (00:51)
[2020-03-18] MEDS ORDERED: CLOP75TA32 PO (00:52)
[2020-03-18] MEDS ORDERED: TRAZ-187 PO (00:52)
[2020-03-18] MEDS ORDERED: GLIP10TA9 PO (00:52)
[2020-03-18] MEDS ORDERED: INSLAN SQ (00:55)
[2020-03-22] MEDS ORDERED: METO10TA41 PO (18:41)
== END 2019-12-01 20:09 | disposition home health service (06) | DRG 622 ==
LOC: EDH 17:03 → EDHIP 18:20 → 3BH 21:48
PROVIDERS: ADMIT Internal Medicine Pulmonary Disease; ATTEND Internal Medicine Pulmonary Disease
PROC: 5A1D70Z Performance of Urinary Filtration, Intermittent, Less than 6 Hours Per Day (ICD-10-PCS; principal; 2019-11-22)
PROC: 5A1D70Z Performance of Urinary Filtration, Intermittent, Less than 6 Hours Per Day (ICD-10-PCS; 2019-11-23)
PROC: 0JH63XZ Insertion of Tunneled Vascular Access Device into Chest Subcutaneous Tissue and Fascia, Percutaneous Approach (ICD-10-PCS; 2019-11-23)
PROC: 02H633Z Insertion of Infusion Device into Right Atrium, Percutaneous Approach (ICD-10-PCS; 2019-11-23)
PROC: B5181ZA Fluoroscopy of Superior Vena Cava using Low Osmolar Contrast, Guidance (ICD-10-PCS; 2019-11-23)
PROC: B548ZZA Ultrasonography of Superior Vena Cava, Guidance (ICD-10-PCS; 2019-11-23)
PROC: 5A1D70Z Performance of Urinary Filtration, Intermittent, Less than 6 Hours Per Day (ICD-10-PCS; 2019-11-24)
PROC: 5A1D70Z Performance of Urinary Filtration, Intermittent, Less than 6 Hours Per Day (ICD-10-PCS; 2019-11-26)
PROC: 0JBR0ZZ Excision of Left Foot Subcutaneous Tissue and Fascia, Open Approach (ICD-10-PCS; 2019-12-01)
PROC: 5A1D70Z Performance of Urinary Filtration, Intermittent, Less than 6 Hours Per Day (ICD-10-PCS; 2019-12-01)
DX: E11.621 Type 2 diabetes mellitus with foot ulcer (principal); E43 Unspecified severe protein-calorie malnutrition; E11.52 Type 2 diabetes mellitus with diabetic peripheral angiopathy with gangrene; L03.116 Cellulitis of left lower limb; I12.0 Hypertensive chronic kidney disease with stage 5 chronic kidney disease or end stage renal disease; N18.6 End stage renal disease; N17.9 Acute kidney failure, unspecified; I70.209 Unspecified atherosclerosis of native arteries of extremities, unspecified extremity; E11.22 Type 2 diabetes mellitus with diabetic chronic kidney disease; E11.40 Type 2 diabetes mellitus with diabetic neuropathy, unspecified; D63.1 Anemia in chronic kidney disease; E66.01 Morbid (severe) obesity due to excess calories; E87.6 Hypokalemia; I25.10 Atherosclerotic heart disease of native coronary artery without angina pectoris; L97.529 Non-pressure chronic ulcer of other part of left foot with unspecified severity; E78.5 Hyperlipidemia, unspecified; G47.33 Obstructive sleep apnea (adult) (pediatric); I87.2 Venous insufficiency (chronic) (peripheral); K59.00 Constipation, unspecified; L29.9 Pruritus, unspecified; M06.9 Rheumatoid arthritis, unspecified; Z68.39 Body mass index [BMI] 39.0-39.9, adult; Z79.84 Long term (current) use of oral hypoglycemic drugs; I25.2 Old myocardial infarction; Z79.02 Long term (current) use of antithrombotics/antiplatelets; Z79.4 Long term (current) use of insulin; Z79.899 Other long term (current) drug therapy; Z87.891 Personal history of nicotine dependence; Z89.021 Acquired absence of right finger(s); Z91.041 Radiographic dye allergy status; Z95.1 Presence of aortocoronary bypass graft; Z98.1 Arthrodesis status; Z86.73 Personal history of transient ischemic attack (TIA), and cerebral infarction without residual deficits
CPT/HCPCS: 36415; 36558; 71045; 73218; 73718; 73721; 75635; 77001; 80048; 80053; 80061; 80069; 80076; 80202; 82040; 82565; 82728; 82947; 82948; 83036; 83540; 83550; 83735; 84520; 85014; 85018; 85025; 85027; 85610; 85651; 85730; 86140; 86701; 86704; 86706; 87040; 87340; 87390; 87520; 90935; 93005; 93925; 93970; 97039; C1750; G0378; J0360; J1200; J1644; J1815; J2543; J2930; J3370; J3490; J7040; J7050; Q0163; Q9967

== ENCOUNTER → 2019-12-08 | Outpatient (CLI) | payer OTHER ==
[~2019-12-08] MED LIST changes: +ALBU8.5H8 IH; -AMLO5TAB4 PO; +AMOX-426 PO; +ATOR10TA69 PO; +CLON0.1T PO; +FERR325T22 PO; +FOLI1TAB85 PO; -FURO40TA7 PO; -HYDR-4153 PO; +INSLAN SQ; +INSU100V3 SQ; +LORA2TAB80 PO; -METO-482 PO; +METO100T14 PO; +METO10TA41 PO; +METO2.5T2 PO; -NALO25TA4 PO; +PANT40TA PO; +PRAM0.129 PO; +PREG150C46 PO; +SERT100T12 PO; +TRAZ-187 PO; +TYL4 PO
[2019-12-08 15:15] VITALS: BP 114/81
== END | disposition home or self-care (01) ==
LOC: WHH 10:00
PROVIDERS: ATTEND Podiatrist Foot & Ankle Surgery
DX: E11.621 Type 2 diabetes mellitus with foot ulcer (principal); L97.421 Non-pressure chronic ulcer of left heel and midfoot limited to breakdown of skin; E11.22 Type 2 diabetes mellitus with diabetic chronic kidney disease; I12.0 Hypertensive chronic kidney disease with stage 5 chronic kidney disease or end stage renal disease; N18.6 End stage renal disease; E11.40 Type 2 diabetes mellitus with diabetic neuropathy, unspecified; E11.52 Type 2 diabetes mellitus with diabetic peripheral angiopathy with gangrene; I96 Gangrene, not elsewhere classified; I87.2 Venous insufficiency (chronic) (peripheral); M06.9 Rheumatoid arthritis, unspecified; E78.5 Hyperlipidemia, unspecified; I25.10 Atherosclerotic heart disease of native coronary artery without angina pectoris; E66.01 Morbid (severe) obesity due to excess calories; I25.2 Old myocardial infarction; G47.33 Obstructive sleep apnea (adult) (pediatric); Z87.891 Personal history of nicotine dependence; Z95.1 Presence of aortocoronary bypass graft; Z79.4 Long term (current) use of insulin; Z99.2 Dependence on renal dialysis; Z79.899 Other long term (current) drug therapy; Z86.73 Personal history of transient ischemic attack (TIA), and cerebral infarction without residual deficits
CPT/HCPCS: A4450; G0463

== ENCOUNTER 2019-12-29 | Outpatient (CLI) | payer OTHER | END 2019-12-29 14:01 | disposition home or self-care (01) ==

== ENCOUNTER → 2020-01-05 | Outpatient (CLI) | payer OTHER ==
[~2020-01-05] MED LIST changes: -ALBU8.5H8 IH; -FOLI1TAB85 PO; -INSLAN SQ; -INSU100V3 SQ; +IOHEXOL 350 MG/ML 100ML INFUS..BTL IV ONE; -LIRA0.6P SQ; -METO10TA41 PO; -PANT40TA PO; +PANT40TA25 PO; -PANT40TA54 PO; -PREG150C PO; -TRAZ-187 PO
== END | disposition home or self-care (01) ==
LOC: RAH 09:42
PROVIDERS: ATTEND Internal Medicine Cardiovascular Disease
DX: N20.0 Calculus of kidney (principal); K76.0 Fatty (change of) liver, not elsewhere classified; J98.11 Atelectasis; I10 Essential (primary) hypertension
CPT/HCPCS: 75635; Q9967 ×2

== ENCOUNTER 2020-03-10 20:54 | Inpatient (IN) | payer OTHER ==
[~2020-03-10] VITALS: Ht 180.3 cm; Wt 124.6 kg
[~2020-03-10 20:54] MED LIST changes: -IOHEXOL 350 MG/ML 100ML INFUS..BTL IV ONE; -PANT40TA25 PO; +PANT40TA54 PO
[2020-03-10 21:12] LABS: EOSINOPHILS % (AUTO) 0.2 % (0.0-8.0); LYMPHOCYTES % (AUTO) 21.1 % (21.0-51.0); MEAN CORPUSCULAR HEMOGLOBIN 27.8 pg (27.0-33.0); MEAN CORPUSCULAR HGB CONC 30.9 g/dL (32.0-36.0); MEAN CORPUSCULAR VOLUME 90.2 fL (79-99); NEUTROPHILS % (AUTO) 61.1 % (40.0-77.0); PLATELET COUNT (AUTO) 160 K/uL (130-400); RED BLOOD CELL COUNT(AUTO) 2.55 MIL/uL (4.50-6.20); RED CELL DISTRIBUTION WIDTH 17.2 % (11.0-15.5); WHITE BLOOD COUNT (AUTO) 4.9 K/uL (4.8-10.8)
[2020-03-10 21:21] LABS: CREATININE 6.1 mg/dL (0.5-1.5); POTASSIUM 4.3 mmol/L (3.5-5.1)
[2020-03-10 21:27] LABS: INR 1.09 (0.85-1.15); PARTIAL THROMBOPLASTIN TIME 19.1 SEC (26.3-35.5); PROTHROMBIN TIME 11.7 SEC (9.6-11.6)
[2020-03-10 21:35] LABS: ALBUMIN 3.3 g/dL (3.5-5.0); BILIRUBIN,TOTAL 0.5 mg/dL (0.2-1.0)
[2020-03-10] MEDS ORDERED: ALBUTEROL INHALER 90MCG/INH IH ONE (21:47)
[2020-03-10] MEDS ORDERED: FUROSEMIDE 10 MG/ML 4ML VIAL ONE (21:47)
[2020-03-10] MEDS ORDERED: TRAMADOL HCL 50 MG TABLET ONE (22:26)
[2020-03-10] MEDS ORDERED: AZITHROMYCIN 250 MG TABLET PO ONE (23:04)
[2020-03-10] MEDS ORDERED: AZITHROMYCIN 250 MG TABLET PO SCH (23:45)
[2020-03-10] MEDS ORDERED: ACETAMINOPHEN 325 MG TAB PO PRN (23:45)
[2020-03-11] MEDS ORDERED: FUROSEMIDE 10 MG/ML 4ML VIAL IVP SCH
[2020-03-11 03:30] VITALS: BP 126/74
[2020-03-11] MEDS ORDERED: FOLI1TAB85 PO (04:07)
[2020-03-11] MEDS ORDERED: INSU100V3 SQ ×2 (04:07)
[2020-03-11] MEDS ORDERED: ATOR10TA69 PO (04:07)
[2020-03-11] MEDS ORDERED: ALBU8.5H8 IH (04:07)
[2020-03-11] MEDS ORDERED: PREG150C PO (04:07)
[2020-03-11] MEDS ORDERED: INSLAN SQ ×2 (04:07)
[2020-03-11] MEDS ORDERED: LINA5TAB PO (04:07)
[2020-03-11] MEDS ORDERED: LIRA0.6P SQ (04:07)
--- NOTE | 2020-03-11 04:34 | NUR ---
beverage steward spoke to dr. garcia via telephone regarding pending consult , informed of patient status , per dr. garcia add to my schedule and schedule for dialysis in the am
[2020-03-11] MEDS: FUROSEMIDE 10 MG/ML 4ML VIAL IVP SCH ×3 (05:43→22:26)
[2020-03-11 06:04] LABS: HEMATOCRIT 22.9 % (42-54); MEAN CORPUSCULAR HGB CONC 29.7 g/dL (32.0-36.0); MEAN CORPUSCULAR VOLUME 90.9 fL (79-99); RED BLOOD CELL COUNT(AUTO) 2.52 MIL/uL (4.50-6.20); RED CELL DISTRIBUTION WIDTH 17.4 % (11.0-15.5); WHITE BLOOD COUNT (AUTO) 4.7 K/uL (4.8-10.8)
[2020-03-11 06:12] LABS: CREATININE 6.3 mg/dL (0.5-1.5); POTASSIUM 4.4 mmol/L (3.5-5.1)
[2020-03-11] MEDS ORDERED: ACETAMINOPHEN 325 MG TAB PO PRN (07:30)
[2020-03-11] MEDS ORDERED: NITROGLYCERIN 0.4 MG SL TAB SL PRN (07:30)
[2020-03-11] MEDS ORDERED: SODIUM CHLORIDE 0.9% 1000ML 1,000 ML IV PRN (07:30)
[2020-03-11] MEDS ORDERED: 0.9% SODIUM CHLORIDE 1000 ML IV BAG IV PRN (07:30)
[2020-03-11] MEDS ORDERED: HEPARIN SODIUM 5000UNIT/ML 1ML VIAL IJ PRN ×2 (07:30)
[2020-03-11] MEDS ORDERED: LIDOCAINE HCL-MPF 1% 2ML VIAL IJ PRN (07:30)
[2020-03-11 08:00] VITALS: BP 160/88
[2020-03-11] MEDS ORDERED: AZITHROMYCIN 250 MG TABLET PO SCH (09:00)
--- NOTE | 2020-03-11 09:00 | NUR ---
BENCHMARK PAGED IVIS SANTILLAN. TO INFORM OF ABNORMAL LABS AND PATIENT CONDITION.
[2020-03-11 12:00] VITALS: BP 147/85
--- NOTE | 2020-03-11 12:00 | NUR ---
CARDIOLOGY CONSULT SPOKE TO Pedro YANEZ MADE AWARE OF CONSULT.
[2020-03-11 12:03] LABS: HEMATOCRIT 23.3 % (42-54)
--- NOTE | 2020-03-11 12:24 | NUR ---
INITIAL SW spoke with spouse, Lencho Moore. Patient lives with spouse. He has no home services. Dialysis: TTS 5am at [facility] [place]. Spouse transports to and from treatment. DME: walker, wheelchair, glucometer (uses insulin), BPM, shower chair, nebulizer. Patient is independent and drives. PCP is Dr. Kt Coates. Pharmacy is [facility] located on [address] [place] [address]. No safety concerns voiced regarding patient returning home. DCP is home. Addendum: 03/11/20 at 1228 by LACHO AMARO SS Amended: Links added.
--- NOTE | 2020-03-11 12:55 | NUR ---
DR PUGA PAGED DR PUGA. PATIENT HAS ANEMIA AND SPITTING UP BLOOD.
[2020-03-11] MEDS ORDERED: INSULIN HUMULIN R 100 UNIT/ML 3ML ONE (13:13)
[2020-03-11 13:28] LABS: TROPONIN I 1.1 ng/mL (0.00-0.06)
[2020-03-11] MEDS ORDERED: ALBUTEROL INHALER 90MCG/INH IH PRN (13:30)
[2020-03-11] MEDS ORDERED: HYDRALAZINE HCL 20 MG/ML VIAL IV PRN (13:30)
[2020-03-11] MEDS ORDERED: PHARMACY COMMUNICATION MISC SCH (13:45)
[2020-03-11] MEDS ORDERED: LEVOFLOXACIN 750 MG/D5W 150 ML 150 ML IV STA (13:50)
[2020-03-11] MEDS ORDERED: SODIUM CHLORIDE 0.9% IJ STA (13:54)
[2020-03-11] MEDS ORDERED: DESMOPRESSIN ACETATE IJ STA (13:54)
--- NOTE | 2020-03-11 14:13 | NUR ---
Repeat troponin 1.1, CK 762. Reported to Dr. Leyva, cardiology. He stated he feels results are more related to anemia, respiratory status, and fluid overload/ESRD than acute ACS. Will await new orders.
[2020-03-11] MEDS ORDERED: COMPOUND IV REFRIGERATED 1 EACH IVSOLN MISC PRN (15:30)
[2020-03-11 16:00] VITALS: BP 144/75
[2020-03-11] MEDS: VANCOMYCIN 2.25 GM in SODIUM CHLORIDE 0.9% 500ML 500 ML IV SCH (16:00)
[2020-03-11] MEDS: INSULIN HUMULIN R 100 UNIT/ML 3ML SQ SCH ×2 (16:30→21:42)
[2020-03-11] MEDS: CLONIDINE HCL 0.1 MG TABLET PO SCH ×2 (17:00→21:40)
--- NOTE | 2020-03-11 17:00 | NUR ---
RECEIVED PT AAO X 3, SOB PRESENT, PT ON VM AT 40%, SAT AT 99%. WAITING FOR DIALYSIS TODAY AND TRANSFUSION OF 1 UNIT OF PRBC. PT WAS EDUCATED ABOUT UNIT, CONDITION AND VERBALIZED UNDERSTAND. REPORT GIVEN BY ASHLEY BAEZ.
[2020-03-11 17:17] LABS: HEMATOCRIT 22.9 % (42-54)
[2020-03-11 17:57] LABS: TROPONIN I 0.82 ng/mL (0.00-0.06)
[2020-03-11] MEDS ORDERED: SODIUM CHLORIDE 0.9% 250 ML IV ONE (18:12)
[2020-03-11] MEDS ORDERED: LEVOFLOXACIN 750 MG/D5W 150 ML 150 ML IV SCH (18:15)
[2020-03-11 19:00] VITALS: BP 154/82
[2020-03-11 20:43] LABS: TROPONIN I 0.79 ng/mL (0.00-0.06)
[2020-03-11] MEDS: ZOSYN 3.375GM+NS 50ML 50 ML IV SCH (21:32)
[2020-03-11] MEDS: METOPROLOL TARTRATE 50 MG TAB PO SCH (21:40)
[2020-03-11] MEDS: PREGABALIN 75 MG CAPSULE PO SCH (21:40)
[2020-03-11] MEDS: HYDROXYCHLOROQUINE SULFATE 200 MG TAB PO SCH (21:41)
[2020-03-11] MEDS: PRAMIPEXOLE DI-HCL 0.25 MG TABLET PO SCH (21:41)
[2020-03-11 23:00] VITALS: BP 148/79
[2020-03-11 23:23] LABS: HEMATOCRIT 23.6 % (42-54)
[2020-03-12] VITALS (7 sets, daily range): BP systolic 111–148; BP diastolic 59–82
[2020-03-12 00:02] LABS: TROPONIN I 0.83 ng/mL (0.00-0.06)
[2020-03-12] MEDS: ZOSYN 3.375GM+NS 50ML 50 ML IV SCH ×2 (03:13→13:53)
[2020-03-12 04:42] LABS: HEMATOCRIT 24.6 % (42-54); MEAN CORPUSCULAR HEMOGLOBIN 27.1 pg (27.0-33.0); MEAN CORPUSCULAR HGB CONC 30.1 g/dL (32.0-36.0); MEAN CORPUSCULAR VOLUME 90.1 fL (79-99); RED BLOOD CELL COUNT(AUTO) 2.73 MIL/uL (4.50-6.20); RED CELL DISTRIBUTION WIDTH 17.1 % (11.0-15.5); WHITE BLOOD COUNT (AUTO) 7.7 K/uL (4.8-10.8)
[2020-03-12 04:51] LABS: ALBUMIN 3.2 g/dL (3.5-5.0); CREATININE 5.2 mg/dL (0.5-1.5); CRP QUANTITATIVE 78.2 mg/L (0.00-9.0); MAGNESIUM 1.8 mg/dL (1.80-2.40); PHOSPHORUS 4.4 mg/dL (2.5-4.9); POTASSIUM 4.5 mmol/L (3.5-5.1); TOTAL PROTEIN, SERUM 7.1 g/dL (6.0-8.3)
[2020-03-12 04:55] LABS: INR 1.12 (0.85-1.15); PARTIAL THROMBOPLASTIN TIME 26.1 SEC (26.3-35.5)
[2020-03-12] MEDS: FUROSEMIDE 10 MG/ML 4ML VIAL IVP SCH ×3 (05:58→21:30)
[2020-03-12] MEDS: INSULIN HUMULIN R 100 UNIT/ML 3ML SQ SCH ×4 (05:59→21:00)
[2020-03-12] MEDS: HYDROXYCHLOROQUINE SULFATE 200 MG TAB PO SCH ×2 (08:12→21:30)
[2020-03-12] MEDS: METOPROLOL TARTRATE 50 MG TAB PO SCH ×2 (08:12→21:30)
[2020-03-12] MEDS: PREGABALIN 75 MG CAPSULE PO SCH ×2 (08:13→21:30)
[2020-03-12] MEDS: PRAMIPEXOLE DI-HCL 0.25 MG TABLET PO SCH ×2 (08:13→21:30)
[2020-03-12] MEDS: ATORVASTATIN CALCIUM 10 MG TABLET PO SCH (08:14)
[2020-03-12] MEDS: SERTRALINE HCL 50 MG TABLET PO SCH (08:14)
[2020-03-12] MEDS: FOLIC ACID/VITAMIN B COMP W-C 1 CAP TAB PO SCH (08:15)
[2020-03-12] MEDS: CLONIDINE HCL 0.1 MG TABLET PO SCH ×4 (08:15→21:00)
[2020-03-12] MEDS: LORAZEPAM 2 MG TABLET PO PRN ×2 (10:35→23:10)
[2020-03-12 11:39] LABS: HEMATOCRIT 22.7 % (42-54)
[2020-03-12 17:28] LABS: HEMATOCRIT 22.1 % (42-54)
[2020-03-12] MEDS ORDERED: PANTOPRAZOLE SODIUM 80 MG in SODIUM CHLORIDE 0.9% 100 ML IV SCH (18:15)
[2020-03-12] MEDS ORDERED: SODIUM CHLORIDE 0.9% 250 ML IV ONE (18:22)
--- NOTE | 2020-03-12 19:11 | NUR ---
1814 Dr Mcfadden was call and notify about panic result of hgb 6.8, hct 22.1 and that pt verbalized he have notice some blood in his stool. Dr Mcfadden ordered start Protonix Drip, Transfuse one 2 units of PRBC and keep pt NPO.
[2020-03-12 23:21] LABS: HEMATOCRIT 23.4 % (42-54)
[2020-03-13] MEDS: ZOSYN 3.375GM+NS 50ML 50 ML IV SCH ×2 (02:10→15:55)
[2020-03-13 04:07] LABS: MEAN CORPUSCULAR HEMOGLOBIN 27.3 pg (27.0-33.0); MEAN CORPUSCULAR HGB CONC 30.9 g/dL (32.0-36.0); MEAN CORPUSCULAR VOLUME 88.5 fL (79-99); RED BLOOD CELL COUNT(AUTO) 2.6 MIL/uL (4.50-6.20); RED CELL DISTRIBUTION WIDTH 16.6 % (11.0-15.5); WHITE BLOOD COUNT (AUTO) 6.6 K/uL (4.8-10.8)
[2020-03-13 04:11] LABS: ABG BASE EXCESS 3.6 mmol/L (-2.0-3.0); ABG HCO3 29.1 mmol/L (21.0-28.0); ABG OXYGEN SATURATION 88.7 % (95.0-99.0); ABG PCO2 47 mmHg (35-48)
[2020-03-13 04:14] LABS: INR 1.13 (0.85-1.15); PARTIAL THROMBOPLASTIN TIME 29.7 SEC (26.3-35.5); PROTHROMBIN TIME 12.1 SEC (9.6-11.6)
[2020-03-13 04:15] VITALS: BP 146/66
[2020-03-13 04:24] LABS: BILIRUBIN,TOTAL 1.2 mg/dL (0.2-1.0); CREATININE 6.3 mg/dL (0.5-1.5); MAGNESIUM 2.1 mg/dL (1.80-2.40); PHOSPHORUS 5.2 mg/dL (2.5-4.9); POTASSIUM 3.9 mmol/L (3.5-5.1); TOTAL PROTEIN, SERUM 6.8 g/dL (6.0-8.3)
[2020-03-13] MEDS: FUROSEMIDE 10 MG/ML 4ML VIAL IVP SCH ×3 (05:31→20:58)
[2020-03-13] MEDS: INSULIN HUMULIN R 100 UNIT/ML 3ML SQ SCH ×4 (05:38→21:05)
[2020-03-13 07:00] VITALS: BP 141/69
[2020-03-13] MEDS: SERTRALINE HCL 50 MG TABLET PO SCH (08:57)
[2020-03-13] MEDS: FOLIC ACID/VITAMIN B COMP W-C 1 CAP TAB PO SCH (08:57)
[2020-03-13] MEDS: HYDROXYCHLOROQUINE SULFATE 200 MG TAB PO SCH ×2 (08:57→21:06)
[2020-03-13] MEDS: CLONIDINE HCL 0.1 MG TABLET PO SCH ×4 (08:58→20:57)
[2020-03-13] MEDS: METOPROLOL TARTRATE 50 MG TAB PO SCH ×2 (08:58→20:54)
[2020-03-13] MEDS: PREGABALIN 75 MG CAPSULE PO SCH ×2 (08:58→20:55)
[2020-03-13] MEDS: ATORVASTATIN CALCIUM 10 MG TABLET PO SCH (08:58)
[2020-03-13] MEDS: PRAMIPEXOLE DI-HCL 0.25 MG TABLET PO SCH ×2 (08:59→20:56)
[2020-03-13 11:00] VITALS: BP 126/69
[2020-03-13 11:25] LABS: HEMATOCRIT 24.1 % (42-54)
--- NOTE | 2020-03-13 12:57 | NUR ---
MD Jones Called made for pt to verify CTA order. Pt allergic to iodine. Pt reports rash with iodined use. Denies sob/swelling. Awaiting call back
--- NOTE | 2020-03-13 13:21 | NUR ---
By bedside TYRELL Celaya by bedside. Verbal order to cancel CTA and DC NPO. Pt to be placed on Diabetic Renal diet.
[2020-03-13] MEDS ORDERED: COMPOUND IV MISC 1 EACH IVSOLN MISC PRN (13:30)
--- NOTE | 2020-03-13 13:52 | NUR ---
Nephrology by bedside Dr Cardenas by bedside for assessment
[2020-03-13 15:00] VITALS: BP 133/76
[2020-03-13] MEDS: LEVOFLOXACIN 500 MG/D5W 100 ML 100 ML IV SCH (15:02)
[2020-03-13 17:44] LABS: HEMATOCRIT 22.8 % (42-54)
[2020-03-13 21:12] VITALS: BP 139/73
[2020-03-13] MEDS: TRAMADOL HCL 50 MG TABLET PO PRN (22:28)
[2020-03-14] VITALS (7 sets, daily range): BP systolic 119–155; BP diastolic 67–82
[2020-03-14 00:41] LABS: HEMATOCRIT 23.3 % (42-54)
[2020-03-14] MEDS: LORAZEPAM 2 MG TABLET PO PRN ×2 (02:17→21:21)
[2020-03-14] MEDS: ZOSYN 3.375GM+NS 50ML 50 ML IV SCH ×2 (03:03→14:53)
[2020-03-14] MEDS: FUROSEMIDE 10 MG/ML 4ML VIAL IVP SCH ×3 (06:36→21:20)
[2020-03-14] MEDS: INSULIN HUMULIN R 100 UNIT/ML 3ML SQ SCH ×4 (06:46→21:00)
--- NOTE | 2020-03-14 07:39 | NUR ---
Dialysis Confirmed Dialysis schedule with Ivonne MORROW ([phone]). Reports she will dialyze pt approx [phone] this am. Orders to hold 0900 Medications.
[2020-03-14] MEDS: ATORVASTATIN CALCIUM 10 MG TABLET PO SCH (09:00)
[2020-03-14] MEDS: SERTRALINE HCL 50 MG TABLET PO SCH (09:00)
[2020-03-14] MEDS: CLONIDINE HCL 0.1 MG TABLET PO SCH ×4 (09:00→21:19)
[2020-03-14] MEDS: PREGABALIN 75 MG CAPSULE PO SCH ×2 (09:00→21:18)
[2020-03-14] MEDS: METOPROLOL TARTRATE 50 MG TAB PO SCH ×2 (09:00→21:18)
[2020-03-14] MEDS: FOLIC ACID/VITAMIN B COMP W-C 1 CAP TAB PO SCH (09:00)
[2020-03-14] MEDS: PRAMIPEXOLE DI-HCL 0.25 MG TABLET PO SCH ×2 (09:00→21:00)
[2020-03-14] MEDS: HYDROXYCHLOROQUINE SULFATE 200 MG TAB PO SCH ×2 (09:00→21:19)
--- NOTE | 2020-03-14 09:46 | NUR ---
HD Pt awaiting HD. AM meds held.
--- NOTE | 2020-03-14 09:55 | NUR ---
Svetlana TECHNICAL DESIGNER by bedside for rounding. No orders at this time
--- NOTE | 2020-03-14 10:04 | NUR ---
GI Consult GI conult Dr de leon called for consult ([phone]) Awaiting call back
--- NOTE | 2020-03-14 13:12 | NUR ---
Pt to be transferred to 401 Report given to Genesis RAMIREZ. All questions answered and addressed. VS stable. NAD
--- NOTE | 2020-03-14 16:39 | NUR ---
RD NOTIFICATION Pt admitted with Chest pain, Fluid Overload. Renal Dialysis diet order in place. Pt with poor PO intake. No report of Gi distress. Pt is s/p hemodialysis. Monitored labs: H/H 7.3/23.3, BG 207, CO2 33, BUN 49, Cr 6.3, GFR 10, P 5.2, T. Bili 1.2, Alb 3.0. BLE 2+ edema. Obesity Class III. LBM 03/10/20. Recommend 60gm CC, Renal Dialysis diet order Recommend Nepro QD to encourage increased nutrition energy intake Recommend stool softener/laxative or fiber supplement as medically feasible RD to continue to monitor. Please notify RD as additional nutrition concerns arise. Thank you.
[2020-03-14] MEDS: PANTOPRAZOLE SODIUM 40 MG TABLET.DR PO SCH (16:45)
[2020-03-14] MEDS: VANCOMYCIN 2.25 GM in SODIUM CHLORIDE 0.9% 500ML 500 ML IV SCH (16:50)
[2020-03-14] MEDS: PHARMACY COMMUNICATION MISC SCH ×2 (17:00→21:00)
[2020-03-14] MEDS: TRAMADOL HCL 50 MG TABLET PO PRN (23:28)
[2020-03-15] MEDS: PHARMACY COMMUNICATION MISC SCH ×4 (01:00→13:00)
[2020-03-15] MEDS: ZOSYN 3.375GM+NS 50ML 50 ML IV SCH ×2 (03:00→14:27)
[2020-03-15 03:35] VITALS: BP 130/71
[2020-03-15 06:09] LABS: BASOPHILS % (AUTO) 0.2 % (0.0-5.0); EOSINOPHILS % (AUTO) 0.4 % (0.0-8.0); HEMATOCRIT 22.6 % (42-54); LYMPHOCYTES % (AUTO) 18.1 % (21.0-51.0); MEAN CORPUSCULAR HEMOGLOBIN 27.3 pg (27.0-33.0); MEAN CORPUSCULAR HGB CONC 31.4 g/dL (32.0-36.0); MEAN CORPUSCULAR VOLUME 86.9 fL (79-99); MONOCYTES % (AUTO) 25.9 % (3.0-13.0); PLATELET COUNT (AUTO) 199 K/uL (130-400); RED CELL DISTRIBUTION WIDTH 16.8 % (11.0-15.5); WHITE BLOOD COUNT (AUTO) 5.3 K/uL (4.8-10.8)
[2020-03-15] MEDS: PANTOPRAZOLE SODIUM 40 MG TABLET.DR PO SCH (06:26)
[2020-03-15] MEDS: FUROSEMIDE 10 MG/ML 4ML VIAL IVP SCH ×2 (06:26→14:00)
[2020-03-15 06:46] LABS: ALBUMIN 2.7 g/dL (3.5-5.0); BILIRUBIN,TOTAL 0.7 mg/dL (0.2-1.0); CREATININE 5.9 mg/dL (0.5-1.5); MAGNESIUM 1.5 mg/dL (1.80-2.40); POTASSIUM 3.6 mmol/L (3.5-5.1); TOTAL PROTEIN, SERUM 6.8 g/dL (6.0-8.3)
[2020-03-15] MEDS: INSULIN HUMULIN R 100 UNIT/ML 3ML SQ SCH ×2 (07:33→11:36)
[2020-03-15 07:45] VITALS: BP 137/78
[2020-03-15] MEDS: CLONIDINE HCL 0.1 MG TABLET PO SCH ×2 (08:44→13:00)
[2020-03-15] MEDS: ATORVASTATIN CALCIUM 10 MG TABLET PO SCH (08:44)
[2020-03-15] MEDS: FOLIC ACID/VITAMIN B COMP W-C 1 CAP TAB PO SCH (08:45)
[2020-03-15] MEDS: PRAMIPEXOLE DI-HCL 0.25 MG TABLET PO SCH (08:45)
[2020-03-15] MEDS: HYDROXYCHLOROQUINE SULFATE 200 MG TAB PO SCH (08:45)
[2020-03-15] MEDS: METOPROLOL TARTRATE 50 MG TAB PO SCH (08:45)
[2020-03-15] MEDS: PREGABALIN 75 MG CAPSULE PO SCH (08:45)
[2020-03-15] MEDS: SERTRALINE HCL 50 MG TABLET PO SCH (08:47)
[2020-03-15] MEDS ORDERED: METOLAZONE 2.5 MG TABLET PO SCH (09:00)
[2020-03-15] MEDS ORDERED: TYLENOL PO PRN (09:00)
[2020-03-15 11:30] VITALS: BP 124/68
[2020-03-15 13:00] VITALS: BP 124/68
[2020-03-15] MEDS: LEVOFLOXACIN 500 MG/D5W 100 ML 100 ML IV SCH (13:07)
[2020-03-15] MEDS ORDERED: PANT40TA PO (14:38)
[2020-03-16 09:15] LABS: HEPATITIS A ANTIBODY IGM Negative (Negative); HEPATITIS B CORE IGM Negative (Negative); HEPATITIS Bs ANTIGEN SCREEN P Negative (Negative)
[2020-03-18] MEDS ORDERED: LINA5TAB PO (00:51)
[2020-03-18] MEDS ORDERED: ASPI-1443 PO (00:51)
[2020-03-18] MEDS ORDERED: TRAZ-187 PO (00:52)
[2020-03-18] MEDS ORDERED: GLIP10TA9 PO (00:52)
[2020-03-18] MEDS ORDERED: CLOP75TA32 PO (00:52)
[2020-03-18] MEDS ORDERED: INSLAN SQ (00:55)
[2020-03-22] MEDS ORDERED: METO10TA41 PO (18:41)
== END 2020-03-15 17:15 | disposition home or self-care (01) | DRG 291 ==
LOC: EDH 20:54 → OBSVTOIN 22:20 → EDHIP 22:20 → 3BH 03-11 00:47 → 3CH 03-11 01:22 → 2AH 03-11 16:00 → 4AH 03-14 13:44
PROVIDERS: ADMIT Internal Medicine Critical Care Medicine; ATTEND Internal Medicine Critical Care Medicine
PROC: 30233N1 Transfusion of Nonautologous Red Blood Cells into Peripheral Vein, Percutaneous Approach (ICD-10-PCS; principal; 2020-03-11)
PROC: 5A1D70Z Performance of Urinary Filtration, Intermittent, Less than 6 Hours Per Day (ICD-10-PCS; 2020-03-11)
PROC: 5A1D70Z Performance of Urinary Filtration, Intermittent, Less than 6 Hours Per Day (ICD-10-PCS; 2020-03-14)
DX: I13.2 Hypertensive heart and chronic kidney disease with heart failure and with stage 5 chronic kidney disease, or end stage renal disease (principal); J96.21 Acute and chronic respiratory failure with hypoxia; N18.6 End stage renal disease; I50.33 Acute on chronic diastolic (congestive) heart failure; R04.2 Hemoptysis; I16.1 Hypertensive emergency; K92.1 Melena; D69.1 Qualitative platelet defects; Z95.1 Presence of aortocoronary bypass graft; I25.10 Atherosclerotic heart disease of native coronary artery without angina pectoris; Z99.2 Dependence on renal dialysis; E11.22 Type 2 diabetes mellitus with diabetic chronic kidney disease; M06.4 Inflammatory polyarthropathy; D64.9 Anemia, unspecified; R04.0 Epistaxis; Z68.38 Body mass index [BMI] 38.0-38.9, adult; E78.5 Hyperlipidemia, unspecified; Y95 Nosocomial condition; Z79.02 Long term (current) use of antithrombotics/antiplatelets; Z79.4 Long term (current) use of insulin; Z79.899 Other long term (current) drug therapy; Z91.041 Radiographic dye allergy status; E66.01 Morbid (severe) obesity due to excess calories; Z20.828 Contact with and (suspected) exposure to other viral communicable diseases
CPT/HCPCS: 36415; 36430; 36600; 71045; 71250; 80048; 80053; 80074; 80202; 82550; 82803; 82948; 83605; 83615; 83735; 83874; 83880; 84100; 84145; 84484; 85014; 85018; 85025; 85027; 85610; 85730; 86140; 86850; 86900; 86901; 86922; 86923; 87116; 87206; 87426; 87804; 90935; 93005; 93306; 93970; C9113; G0378; J1815; J1940; J1956; J2543; J2597; J3370; J7040; J7050; P9016; U0003

== ENCOUNTER 2020-03-28 23:18 | Observation (INO) | payer OTHER ==
[~2020-03-28] VITALS: Ht 177.8 cm; Wt 123.1 kg
[~2020-03-28 23:18] MED LIST changes: +ALBU8.5H8 IH; -AMOX-426 PO; -FERR325T22 PO; +FOLI1TAB85 PO; -HYDR200T4 PO; +INSLAN SQ; -INSREG SQ; -INSU100I26 SQ; +METO10TA41 PO; +PANT40TA PO; -PANT40TA54 PO; +PREG150C PO; -PREG150C46 PO; +TRAZ-187 PO; -TYL4 PO
[2020-03-28 23:43] LABS: BASOPHILS % (AUTO) 0.1 % (0.0-5.0); EOSINOPHILS % (AUTO) 0.4 % (0.0-8.0); HEMATOCRIT 23.9 % (42-54); LYMPHOCYTES % (AUTO) 13.7 % (21.0-51.0); MEAN CORPUSCULAR HEMOGLOBIN 26.3 pg (27.0-33.0); MEAN CORPUSCULAR HGB CONC 29.7 g/dL (32.0-36.0); MEAN CORPUSCULAR VOLUME 88.5 fL (79-99); MONOCYTES % (AUTO) 21.7 % (3.0-13.0); NEUTROPHILS % (AUTO) 63.2 % (40.0-77.0); PLATELET COUNT (AUTO) 195 K/uL (130-400); RED CELL DISTRIBUTION WIDTH 18.6 % (11.0-15.5); WHITE BLOOD COUNT (AUTO) 6.7 K/uL (4.8-10.8)
[2020-03-28 23:49] LABS: CREATININE 6.1 mg/dL (0.5-1.5); POTASSIUM 5.5 mmol/L (3.5-5.1)
[2020-03-28] MEDS ORDERED: KETOROLAC TROMETHAMINE 15MG/ML ONE (23:52)
[2020-03-28 23:54] LABS: ALBUMIN 2.9 g/dL (3.5-5.0); BILIRUBIN,TOTAL 0.3 mg/dL (0.2-1.0); TOTAL PROTEIN, SERUM 7.3 g/dL (6.0-8.3)
[2020-03-29] MEDS ORDERED: HYDRALAZINE HCL 20 MG/ML VIAL IV PRN (04:45)
[2020-03-29] MEDS ORDERED: ONDANSETRON HCL 4 MG/2 ML VIAL IVP PRN (04:45)
[2020-03-29] MEDS ORDERED: ACETAMINOPHEN 325 MG TAB PO PRN (04:45)
[2020-03-29] MEDS ORDERED: NITROGLYCERIN 0.4 MG SL TAB SL PRN (04:45)
[2020-03-29] MEDS ORDERED: DiphenhydrAMINE HCL 50 MG/ML VIAL IV PRN (05:00)
[2020-03-29] MEDS ORDERED: LACTULOSE 20 GM/30 ML UDCUP PO PRN (05:00)
[2020-03-29] MEDS: INSULIN HUMULIN R 100 UNIT/ML 3ML SQ SCH ×4 (07:30→21:46)
[2020-03-29] MEDS ORDERED: PANTOPRAZOLE SODIUM 40 MG TABLET.DR ONE (08:33)
[2020-03-29] MEDS ORDERED: CLOPIDOGREL BISULFATE 75 MG TAB ONE (08:33)
[2020-03-29] MEDS ORDERED: ASPIRIN 81MG TAB.CHEW ONE (08:33)
[2020-03-29] MEDS: Vitamin B Complex/Vit C/Folic Acid PO SCH (09:00)
[2020-03-29] MEDS: ASPIRIN 81 MG EC TAB PO SCH (09:00)
[2020-03-29] MEDS: METOPROLOL TARTRATE 50 MG TAB PO SCH ×2 (09:00→21:37)
[2020-03-29] MEDS: CLOPIDOGREL BISULFATE 75 MG TAB PO SCH (09:00)
[2020-03-29] MEDS: PANTOPRAZOLE SODIUM 40 MG TABLET.DR PO SCH (09:00)
[2020-03-29] MEDS: METOCLOPRAMIDE 5 MG TABLET PO SCH ×2 (11:30→17:00)
[2020-03-29] MEDS ORDERED: METOCLOPRAMIDE 5 MG TABLET ONE (12:14)
[2020-03-29] MEDS ORDERED: MORPHINE SULFATE 2 MG/ML 1ML SYG ONE (14:59)
[2020-03-29 20:30] VITALS: BP 139/72
[2020-03-29] MEDS: ATORVASTATIN CALCIUM 20 MG TABLET PO SCH ×2 (21:00→21:37)
--- NOTE | 2020-03-29 23:05 | NUR ---
PT STILL COMPLAINING OF CHEST PAIN STATES HE HAS HAD CHEST PAIN SINCE COMING TO THE ED AND HAS NOT GOTTEN BETTER , NOR WORSE PATIENT IS REFUSING ANOTHER DOSE OF NITRO SUBLINGUAL MD ORDERED VITAL SIGS STABLE TELEMONITORING SHOWS NORMAL SINUS RYTHM PT ALERT AND ORIENTED X 4 WILL ADMINISTER MORPHINE S. WILL CONTINUE TO MONITOR
[2020-03-29] MEDS: MORPHINE SULFATE 2 MG/ML 1ML SYG IV PRN (23:23)
[2020-03-30 00:06] VITALS: BP 127/72
--- NOTE | 2020-03-30 00:06 | NUR ---
PT STATES CHEST PAIN HAS STOPPED WITH MORPHINE S. AND DENIES SOB PT COMFORTABLY LAYING IN BED WATCHING TV CALL LIGHT AT BED SIDE W TEACH BACK SUCCESSFULLY
[2020-03-30 04:07] VITALS: BP 142/80
[2020-03-30 04:59] LABS: EOSINOPHILS % (AUTO) 1.1 % (0.0-8.0); HEMATOCRIT 24.1 % (42-54); LYMPHOCYTES % (AUTO) 17.3 % (21.0-51.0); MEAN CORPUSCULAR HEMOGLOBIN 25.9 pg (27.0-33.0); MEAN CORPUSCULAR HGB CONC 29.5 g/dL (32.0-36.0); MONOCYTES % (AUTO) 25.2 % (3.0-13.0); NEUTROPHILS % (AUTO) 55.5 % (40.0-77.0); PLATELET COUNT (AUTO) 211 K/uL (130-400); RED BLOOD CELL COUNT(AUTO) 2.74 MIL/uL (4.50-6.20); RED CELL DISTRIBUTION WIDTH 18.6 % (11.0-15.5); WHITE BLOOD COUNT (AUTO) 5.3 K/uL (4.8-10.8)
[2020-03-30 05:31] LABS: CREATININE 7.8 mg/dL (0.5-1.5); POTASSIUM 5.1 mmol/L (3.5-5.1)
[2020-03-30] MEDS: INSULIN HUMULIN R 100 UNIT/ML 3ML SQ SCH ×4 (06:16→21:36)
[2020-03-30] MEDS: MORPHINE SULFATE 2 MG/ML 1ML SYG IV PRN ×4 (06:34→22:59)
[2020-03-30] MEDS: METOCLOPRAMIDE 5 MG TABLET PO SCH ×3 (06:51→17:55)
[2020-03-30 08:00] VITALS: BP 133/74
[2020-03-30] MEDS ORDERED: HEPARIN SODIUM 5000UNIT/ML 1ML VIAL ONE (11:38)
[2020-03-30 12:19] VITALS: BP 148/76
[2020-03-30] MEDS: PANTOPRAZOLE SODIUM 40 MG TABLET.DR PO SCH (13:41)
[2020-03-30] MEDS: Vitamin B Complex/Vit C/Folic Acid PO SCH (13:41)
[2020-03-30] MEDS: METOPROLOL TARTRATE 50 MG TAB PO SCH ×2 (13:44→21:29)
[2020-03-30] MEDS: ASPIRIN 81 MG EC TAB PO SCH (13:44)
[2020-03-30] MEDS: CLOPIDOGREL BISULFATE 75 MG TAB PO SCH (13:45)
[2020-03-30 16:57] LABS: MEAN CORPUSCULAR HEMOGLOBIN 26.4 pg (27.0-33.0); RED BLOOD CELL COUNT(AUTO) 2.84 MIL/uL (4.50-6.20); RED CELL DISTRIBUTION WIDTH 18.3 % (11.0-15.5); WHITE BLOOD COUNT (AUTO) 3.7 K/uL (4.8-10.8)
--- NOTE | 2020-03-30 17:15 | NUR ---
MET W PATIENT AT [facility] FOR DC PLANNING- PATIENT STATES ON HD FOR < 6 MOS, DIALYSIS TTS AT [facility] WITH DR. DALY ZEPEDA,- PATIENT LIVES WITH SPOUSE [place] WHO PROVIDES TRANSPORT; NO CANE WKR OR W/CHAIR, NO OR, PATIENT HAS CPAP MACHINE BUT CANNOT BE COMPLIANT, GETS TOO ANXIOUS WITH CPAPA MASK ON FACE, STATES [employer] IS GOING TO BRING HIM A NEW FACEMASK, WAITING FOR THAT. HOE SAFE AND ACCESSIBLE, DRIVES, INDEPENDENT OF ADLS. DCP HOME Addendum: 03/30/20 at 1719 by NISHA SANCHES RN Amended: Links added.
[2020-03-30 19:47] VITALS: BP 140/65
[2020-03-30] MEDS: ATORVASTATIN CALCIUM 20 MG TABLET PO SCH (21:29)
[2020-03-31 00:06] VITALS: BP 138/74
[2020-03-31] MEDS: MORPHINE SULFATE 2 MG/ML 1ML SYG IV PRN ×2 (03:40→12:23)
[2020-03-31 04:05] VITALS: BP 111/63
[2020-03-31 04:54] LABS: BASOPHILS % (AUTO) 0.3 % (0.0-5.0); EOSINOPHILS % (AUTO) 1.8 % (0.0-8.0); HEMATOCRIT 23.9 % (42-54); MEAN CORPUSCULAR HGB CONC 30.1 g/dL (32.0-36.0); MEAN CORPUSCULAR VOLUME 86.3 fL (79-99); NEUTROPHILS % (AUTO) 31.1 % (40.0-77.0); PLATELET COUNT (AUTO) 206 K/uL (130-400); RED BLOOD CELL COUNT(AUTO) 2.77 MIL/uL (4.50-6.20); RED CELL DISTRIBUTION WIDTH 17.5 % (11.0-15.5); WHITE BLOOD COUNT (AUTO) 3.9 K/uL (4.8-10.8)
[2020-03-31 05:15] LABS: ALBUMIN 2.7 g/dL (3.5-5.0); BILIRUBIN,TOTAL 0.4 mg/dL (0.2-1.0); CREATININE 6.3 mg/dL (0.5-1.5); MAGNESIUM 1.8 mg/dL (1.80-2.40); PHOSPHORUS 5.4 mg/dL (2.5-4.9); POTASSIUM 4.1 mmol/L (3.5-5.1); TOTAL PROTEIN, SERUM 7.3 g/dL (6.0-8.3)
[2020-03-31] MEDS: INSULIN HUMULIN R 100 UNIT/ML 3ML SQ SCH ×3 (06:32→17:37)
[2020-03-31 08:00] VITALS: BP 145/75
[2020-03-31] MEDS: METOPROLOL TARTRATE 50 MG TAB PO SCH (09:00)
[2020-03-31] MEDS: ASPIRIN 81 MG EC TAB PO SCH (11:05)
[2020-03-31] MEDS: METOCLOPRAMIDE 5 MG TABLET PO SCH ×3 (11:05→17:00)
[2020-03-31] MEDS: CLOPIDOGREL BISULFATE 75 MG TAB PO SCH (11:08)
[2020-03-31] MEDS: PANTOPRAZOLE SODIUM 40 MG TABLET.DR PO SCH (11:08)
[2020-03-31] MEDS: Vitamin B Complex/Vit C/Folic Acid PO SCH (11:08)
[2020-03-31 12:00] VITALS: BP 147/73
--- NOTE | 2020-03-31 14:54 | NUR ---
OK TO DISCHARGE PER CARDIO. NEEDS TO CONITNUE TO FLUID CHALLAENGE AT HD. FOLLOW UP IN ONE WEEK WITH HEART CLINIC Addendum: 03/31/20 at 1455 by NISHA SANCHES RN CM Amended: Links added.
[2020-03-31 16:00] VITALS: BP 143/87
== END 2020-03-31 18:50 | disposition home or self-care (01) ==
LOC: EDH 23:18 → EDHIP 03-29 03:54 → 3DH 03-29 19:53
PROVIDERS: ADMIT Internal Medicine; ATTEND Internal Medicine
DX: I25.119 Atherosclerotic heart disease of native coronary artery with unspecified angina pectoris (principal); I13.2 Hypertensive heart and chronic kidney disease with heart failure and with stage 5 chronic kidney disease, or end stage renal disease; E11.22 Type 2 diabetes mellitus with diabetic chronic kidney disease; E11.43 Type 2 diabetes mellitus with diabetic autonomic (poly)neuropathy; E11.65 Type 2 diabetes mellitus with hyperglycemia; E11.51 Type 2 diabetes mellitus with diabetic peripheral angiopathy without gangrene; D64.9 Anemia, unspecified; E66.01 Morbid (severe) obesity due to excess calories; E78.5 Hyperlipidemia, unspecified; F32.9 Major depressive disorder, single episode, unspecified; G47.33 Obstructive sleep apnea (adult) (pediatric); I50.32 Chronic diastolic (congestive) heart failure; N18.6 End stage renal disease; J44.9 Chronic obstructive pulmonary disease, unspecified; K31.84 Gastroparesis; I25.2 Old myocardial infarction; C50.929 Malignant neoplasm of unspecified site of unspecified male breast; Z79.4 Long term (current) use of insulin; Z87.891 Personal history of nicotine dependence; Z95.1 Presence of aortocoronary bypass graft; Z99.2 Dependence on renal dialysis
CPT/HCPCS: 36415 ×4; 36430; 71045 ×2; 74018; 80048; 80053 ×2; 82270; 82550; 82948 ×11; 83690; 83735; 83880; 84100; 84484 ×5; 85018; 85025 ×3; 85027; 86850; 86900; 86901; 86923; 93005 ×3; 93970; 96372 ×3; 96374; 96376 ×2; 99285; A4510; G0378 ×22; J1644; J1815 ×6; J1885; P9016; 90935

== ENCOUNTER → 2020-05-10 | Outpatient (CLI) | payer OTHER | END | disposition home or self-care (01) | LOC: SHCH 10:00 | PROVIDERS: ATTEND Internal Medicine Cardiovascular Disease | DX: I65.23 Occlusion and stenosis of bilateral carotid arteries (principal) | CPT/HCPCS: 93880 ==

== ENCOUNTER 2020-07-17 17:12 | Inpatient (IN) | payer OTHER ==
[~2020-07-17] VITALS: Ht 177.8 cm; Wt 106.2 kg
[~2020-07-17 17:12] MED LIST changes: +SERT-440 PO; -SERT100T12 PO
[2020-07-17 19:08] LABS: BASOPHILS % (AUTO) 0.5 % (0.0-5.0); EOSINOPHILS % (AUTO) 1.1 % (0.0-8.0); HEMATOCRIT 38.6 % (42-54); MEAN CORPUSCULAR HEMOGLOBIN 26.8 pg (27.0-33.0); MEAN CORPUSCULAR HGB CONC 29.5 g/dL (32.0-36.0); MEAN CORPUSCULAR VOLUME 90.8 fL (79-99); MONOCYTES % (AUTO) 5.8 % (3.0-13.0); NUCLEATED RED BLOOD CELLS 0.3 % (0.0-0.19); PLATELET COUNT (AUTO) 179 K/uL (130-400); RED BLOOD CELL COUNT(AUTO) 4.25 MIL/uL (4.50-6.20); RED CELL DISTRIBUTION WIDTH 22.4 % (11.0-15.5); WHITE BLOOD COUNT (AUTO) 6.6 K/uL (4.8-10.8)
[2020-07-17 19:33] LABS: ALBUMIN 3.2 g/dL (3.5-5.0); BILIRUBIN,TOTAL 0.5 mg/dL (0.2-1.0); TOTAL PROTEIN, SERUM 8.7 g/dL (6.0-8.3)
[2020-07-17 19:38] LABS: POTASSIUM 6.6 mmol/L (3.5-5.1)
[2020-07-17] MEDS ORDERED: FAMOTIDINE 20MG TAB ONE (20:49)
[2020-07-17] MEDS ORDERED: CEFTRIAXONE 1G VIAL ONE (20:50)
[2020-07-17] MEDS ORDERED: AZITHROMYCIN 250 MG TABLET PO ONE (20:50)
[2020-07-17] MEDS ORDERED: 0.9%NACL 50ML 50 ML IV ONE (20:53)
[2020-07-17] MEDS ORDERED: HEPARIN 5,000 UNIT VIAL ONE (21:48)
[2020-07-18] MEDS ORDERED: ONDANSETRON 4MG INJ IVP PRN (06:00)
[2020-07-18 07:03] LABS: BASOPHILS % (AUTO) 0.2 % (0.0-5.0); EOSINOPHILS % (AUTO) 0.4 % (0.0-8.0); HEMATOCRIT 33.9 % (42-54); LYMPHOCYTES % (AUTO) 16.2 % (21.0-51.0); MEAN CORPUSCULAR HEMOGLOBIN 26.6 pg (27.0-33.0); MEAN CORPUSCULAR HGB CONC 29.2 g/dL (32.0-36.0); MEAN CORPUSCULAR VOLUME 91.1 fL (79-99); MONOCYTES % (AUTO) 10.1 % (3.0-13.0); PLATELET COUNT (AUTO) 150 K/uL (130-400); RED BLOOD CELL COUNT(AUTO) 3.72 MIL/uL (4.50-6.20); RED CELL DISTRIBUTION WIDTH 22.3 % (11.0-15.5); WHITE BLOOD COUNT (AUTO) 4.8 K/uL (4.8-10.8)
[2020-07-18 07:17] LABS: ALBUMIN 2.7 g/dL (3.5-5.0); ASPARTATE AMINOTRANSFERASE 27 U/L (10-37); BILIRUBIN,TOTAL 0.6 mg/dL (0.2-1.0); CARBON DIOXIDE 26 mmol/L (21-32); CHLORIDE 102 mmol/L (101-111); CREATININE 7.1 mg/dL (0.5-1.5); GLOMERULAR FILTR. RATE CALC 9 mL/min (>60); GLUCOSE,RANDOM 100 mg/dL (70-105); POTASSIUM 5.4 mmol/L (3.5-5.1); SODIUM SERUM 138 mmol/L (136-145); TOTAL PROTEIN, SERUM 7.6 g/dL (6.0-8.3); UREA NITROGEN, BLOOD 45 mg/dL (7-18)
[2020-07-18 07:21] LABS: ALANINE AMINOTRANSFERASE < 6 U/L (12-78)
[2020-07-18] MEDS: HEPARIN 5,000 UNIT VIAL SQ SCH ×2 (09:00→21:00)
[2020-07-18] MEDS: AZITHROMYCIN 250 MG TABLET PO SCH (09:00)
[2020-07-18] MEDS: FAMOTIDINE 20MG TAB PO SCH (09:00)
[2020-07-18] MEDS ORDERED: BUDESONIDE 0.5 MG/2 ML INH IH SCH ×2 (09:00→21:00)
[2020-07-18] MEDS ORDERED: HEPARIN 5,000 UNIT VIAL ONE ×3 (09:05→20:49)
[2020-07-18] MEDS ORDERED: FAMOTIDINE 20MG TAB ONE (10:34)
[2020-07-18] MEDS ORDERED: AZITHROMYCIN 250 MG TABLET PO ONE (10:36)
[2020-07-18] MEDS ORDERED: ONDANSETRON 4MG INJ ONE (11:02)
[2020-07-18] MEDS ORDERED: ACETAMINOPHEN 325 MG TAB ONE ×2 (12:40→20:49)
[2020-07-18] MEDS ORDERED: ONDA-104 PO (13:39)
[2020-07-18] MEDS ORDERED: LINA290C PO (13:39)
[2020-07-18] MEDS ORDERED: PREG150C46 PO (13:39)
[2020-07-18] MEDS ORDERED: FURO40TA5 PO (13:39)
[2020-07-18] MEDS ORDERED: METO-409 PO (13:42)
[2020-07-18] MEDS: DEXAMETHASONE SOD PHOSPHATE 4 MG/ML 1ML VIAL IVP SCH (13:45)
[2020-07-18] MEDS ORDERED: ALBUTEROL INHALER 90MCG/INH IH PRN (14:15)
[2020-07-18] MEDS ORDERED: DEXAMETHASONE SOD PHOSPHATE 4 MG/ML 1ML VIAL ONE (14:25)
[2020-07-18] MEDS: INSULIN HUMULIN R 100 UNIT/ML 3ML SQ SCH ×2 (16:30→21:00)
[2020-07-18] MEDS ORDERED: CEFTRIAXONE 1G VIAL ONE (20:48)
[2020-07-18] MEDS ORDERED: CEFTRIAXONE 1G VIAL IVP SCH (21:00)
[2020-07-18] MEDS ORDERED: INSULIN HUMULIN R 100 UNIT/ML 3ML ONE (21:14)
[2020-07-19 05:20] LABS: HEMATOCRIT 33.4 % (42-54); MEAN CORPUSCULAR HEMOGLOBIN 26.8 pg (27.0-33.0); MEAN CORPUSCULAR HGB CONC 30.2 g/dL (32.0-36.0); MEAN CORPUSCULAR VOLUME 88.6 fL (79-99); RED BLOOD CELL COUNT(AUTO) 3.77 MIL/uL (4.50-6.20); RED CELL DISTRIBUTION WIDTH 20.5 % (11.0-15.5)
[2020-07-19 05:34] LABS: POTASSIUM 5.5 mmol/L (3.5-5.1)
[2020-07-19 05:54] LABS: ALBUMIN 2.7 g/dL (3.5-5.0); BILIRUBIN,TOTAL 0.4 mg/dL (0.2-1.0); CREATININE 7.8 mg/dL (0.5-1.5)
[2020-07-19 07:16] LABS: HEPATITIS A ANTIBODY IGM Negative (Negative); HEPATITIS B CORE IGM Negative (Negative); HEPATITIS Bs ANTIGEN SCREEN P Negative (Negative)
[2020-07-19] MEDS: INSULIN HUMULIN R 100 UNIT/ML 3ML SQ SCH ×4 (07:30→21:36)
[2020-07-19] MEDS: METOPROLOL SUCCINATE 50 MG TAB.SR.24H PO SCH (09:00)
[2020-07-19] MEDS: DEXAMETHASONE SOD PHOSPHATE 4 MG/ML 1ML VIAL IVP SCH (09:00)
[2020-07-19] MEDS: FAMOTIDINE 20MG TAB PO SCH (09:00)
[2020-07-19] MEDS: FLUTICASONE/VILANTEROL 1 EACH AER.POW.BA IH SCH (09:00)
[2020-07-19] MEDS: SERTRALINE HCL 50 MG TABLET PO SCH (09:00)
[2020-07-19] MEDS ORDERED: NON-FORMULARY MEDICATION 1 EACH (Sertraline HCl 100 MG) PO SCH (09:00)
[2020-07-19] MEDS: ATORVASTATIN 10 MG TABLET PO SCH (09:00)
[2020-07-19] MEDS: AZITHROMYCIN 250 MG TABLET PO SCH (09:00)
[2020-07-19] MEDS: HEPARIN 5,000 UNIT VIAL SQ SCH ×2 (09:00→21:08)
[2020-07-19] MEDS ORDERED: NON-FORMULARY MEDICATION 1 EACH (Metoprolol Succinate 100 MG) PO SCH (09:00)
[2020-07-19] MEDS ORDERED: FAMOTIDINE 20MG TAB ONE (09:25)
[2020-07-19] MEDS ORDERED: HEPARIN 5,000 UNIT VIAL ONE (09:26)
[2020-07-19] MEDS ORDERED: AZITHROMYCIN 250 MG TABLET PO ONE (09:26)
[2020-07-19] MEDS ORDERED: ATORVASTATIN 10 MG TABLET ONE (09:31)
[2020-07-19] MEDS ORDERED: DEXAMETHASONE SOD PHOSPHATE 4 MG/ML 1ML VIAL ONE (09:31)
[2020-07-19] MEDS ORDERED: METOPROLOL SUCCINATE 50 MG TAB.SR.24H PO ONE (09:32)
[2020-07-19] MEDS ORDERED: SERTRALINE HCL 50 MG TABLET ONE (09:32)
[2020-07-19] MEDS ORDERED: ACETAMINOPHEN 325 MG TAB ONE ×2 (10:14→16:00)
[2020-07-19] MEDS ORDERED: NA ZIRCON CYCLOSIL(LOKELMA 10GM) PO NR (11:45)
[2020-07-19] MEDS ORDERED: PHARMACY COMMUNICATION MISC SCH (11:45)
[2020-07-19] MEDS ORDERED: INSULIN HUMULIN R 100 UNIT/ML 3ML ONE (12:42)
[2020-07-19] MEDS: CEFEPIME HCL 1 GM VIAL IVP SCH (13:30)
[2020-07-19] MEDS: HONEY 1 APPL/ML TUBE TP SCH (14:30)
[2020-07-19] MEDS ORDERED: ONDANSETRON 4MG INJ ONE (16:00)
[2020-07-19] MEDS ORDERED: CEFEPIME HCL 1 GM VIAL ONE (16:18)
[2020-07-19] MEDS ORDERED: 0.9%NACL 50ML 50 ML IV ONE (16:21)
[2020-07-19 17:30] VITALS: BP 173/97
[2020-07-19 21:00] VITALS: BP 209/108
[2020-07-19] MEDS: ACETAMINOPHEN 325 MG TAB PO PRN (21:07)
[2020-07-19] MEDS ORDERED: LABETALOL 20MG SYG IV ONE (22:19)
[2020-07-19] MEDS ORDERED: LABETALOL 20MG SYG IV PRN (23:00)
[2020-07-20] VITALS (18 sets, daily range): BP systolic 132–193; BP diastolic 47–104
[2020-07-20] MEDS: LABETALOL 20MG SYG IV PRN (00:37)
[2020-07-20] MEDS ORDERED: NICARDIPINE 25MG INJ IV ONE (00:43)
[2020-07-20] MEDS ORDERED: 0.9% NACL 250ML 250 ML IV ONE (00:44)
[2020-07-20] MEDS: ACETAMINOPHEN 325 MG TAB PO PRN ×3 (02:47→14:39)
[2020-07-20] MEDS: INSULIN HUMULIN R 100 UNIT/ML 3ML SQ SCH ×3 (06:54→17:43)
[2020-07-20] MEDS: HONEY 1 APPL/ML TUBE TP SCH (09:00)
[2020-07-20] MEDS: ATORVASTATIN 10 MG TABLET PO SCH (09:29)
[2020-07-20] MEDS: AZITHROMYCIN 250 MG TABLET PO SCH (09:29)
[2020-07-20] MEDS: METOPROLOL SUCCINATE 50 MG TAB.SR.24H PO SCH (09:31)
[2020-07-20] MEDS: DEXAMETHASONE SOD PHOSPHATE 4 MG/ML 1ML VIAL IVP SCH (09:32)
[2020-07-20] MEDS: SERTRALINE HCL 50 MG TABLET PO SCH (09:32)
[2020-07-20] MEDS: FAMOTIDINE 20MG TAB PO SCH (09:32)
[2020-07-20] MEDS: HEPARIN 5,000 UNIT VIAL SQ SCH ×2 (09:34→23:00)
[2020-07-20] MEDS: FLUTICASONE/VILANTEROL 1 EACH AER.POW.BA IH SCH (09:52)
[2020-07-20] MEDS ORDERED: ODANSETRON PO SCH (12:15)
[2020-07-20] MEDS: CEFEPIME HCL 1 GM VIAL IVP SCH (12:32)
[2020-07-20] MEDS: CLONIDINE HCL 0.1 MG TABLET PO SCH ×3 (12:33→23:31)
[2020-07-20 12:48] LABS: POTASSIUM 5.1 mmol/L (3.5-5.1)
[2020-07-20 12:51] LABS: CREATININE 9.1 mg/dL (0.5-1.5)
[2020-07-20] MEDS ORDERED: HYDROMORPHONE 1 MG INJ IVP ONE (15:39)
[2020-07-20] MEDS: PANTOPRAZOLE 40 MG TAB DR PO SCH (15:48)
[2020-07-20] MEDS: PREGABALIN 75 MG CAPSULE PO SCH (23:32)
[2020-07-20] MEDS: TRAZODONE HCL 100 MG TABLET PO SCH (23:32)
[2020-07-20] MEDS: PRAMIPEXOLE DI-HCL 0.25 MG TABLET PO SCH (23:32)
[2020-07-20] MEDS: TRAMADOL HCL 50 MG TABLET PO PRN (23:35)
[2020-07-21] VITALS (15 sets, daily range): BP systolic 153–186; BP diastolic 66–100
[2020-07-21] MEDS: INSULIN HUMULIN R 100 UNIT/ML 3ML SQ SCH ×5 (00:53→21:04)
[2020-07-21] MEDS: LABETALOL 20MG SYG IV PRN ×2 (04:20→23:02)
[2020-07-21 05:00] LABS: HEMATOCRIT 30.4 % (42-54); MEAN CORPUSCULAR HEMOGLOBIN 26.2 pg (27.0-33.0); MEAN CORPUSCULAR HGB CONC 31.6 g/dL (32.0-36.0); MEAN CORPUSCULAR VOLUME 83.1 fL (79-99); PLATELET COUNT (AUTO) 109 K/uL (130-400); RED BLOOD CELL COUNT(AUTO) 3.66 MIL/uL (4.50-6.20); RED CELL DISTRIBUTION WIDTH 19.5 % (11.0-15.5); WHITE BLOOD COUNT (AUTO) 1.4 K/uL (4.8-10.8)
[2020-07-21 05:07] LABS: CREATININE 6.4 mg/dL (0.5-1.5)
[2020-07-21 06:22] LABS: BAND NEUTROPHILS % (MANUAL) 2 % (0-2); BASOPHILS % (MANUAL) 2 % (0-2); LYMPHOCYTES % (MANUAL) 34 % (22-44); MONOCYTES % (MANUAL) 32 % (2-9); SEGMENTED NEUTROPHILS % 30 % (40-70)
[2020-07-21 06:23] LABS: MAN.DIFF COMMENT-IMPRESSION MANUAL DIFFERENTIAL
[2020-07-21] MEDS ORDERED: FUROSEMIDE 40 MG TABLET PO SCH (09:00)
[2020-07-21] MEDS ORDERED: METOLAZONE 2.5 MG TABLET PO SCH (09:00)
[2020-07-21] MEDS: PANTOPRAZOLE 40 MG TAB DR PO SCH ×2 (09:08→16:37)
[2020-07-21] MEDS: ASPIRIN 81 MG EC TAB PO SCH (09:09)
[2020-07-21] MEDS: DEXAMETHASONE SOD PHOSPHATE 4 MG/ML 1ML VIAL IVP SCH (09:09)
[2020-07-21] MEDS: FLUTICASONE/VILANTEROL 1 EACH AER.POW.BA IH SCH (09:09)
[2020-07-21] MEDS: ATORVASTATIN 10 MG TABLET PO SCH (09:11)
[2020-07-21] MEDS: CLONIDINE HCL 0.1 MG TABLET PO SCH ×4 (09:11→20:52)
[2020-07-21] MEDS: PREGABALIN 75 MG CAPSULE PO SCH ×2 (09:12→20:54)
[2020-07-21] MEDS: METOPROLOL SUCCINATE 50 MG TAB.SR.24H PO SCH (09:13)
[2020-07-21] MEDS: CLOPIDOGREL 75MG TAB PO SCH (09:13)
[2020-07-21] MEDS: PRAMIPEXOLE DI-HCL 0.25 MG TABLET PO SCH ×2 (09:13→20:53)
[2020-07-21] MEDS: LINAGLIPTIN 5 MG TABLET PO SCH (09:13)
[2020-07-21] MEDS: FAMOTIDINE 20MG TAB PO SCH (09:13)
[2020-07-21] MEDS: Vitamin B Complex/Vit C/Folic Acid PO SCH (09:13)
[2020-07-21] MEDS: AZITHROMYCIN 250 MG TABLET PO SCH (09:14)
[2020-07-21] MEDS: SERTRALINE HCL 50 MG TABLET PO SCH (09:15)
[2020-07-21] MEDS: HEPARIN 5,000 UNIT VIAL SQ SCH ×2 (09:18→21:03)
[2020-07-21] MEDS: LINZESS 290 MCG PO SCH ×2 (09:30→10:29)
[2020-07-21] MEDS: INSULIN GLARGINE 100 UNITS/ML 10 ML VIAL SQ SCH (09:31)
[2020-07-21] MEDS: HONEY 1 APPL/ML TUBE TP SCH (09:35)
[2020-07-21] MEDS ORDERED: GLIPIZIDE 5 MG TABLET PO SCH (12:00)
[2020-07-21] MEDS: CEFEPIME HCL 1 GM VIAL IVP SCH (12:19)
[2020-07-21] MEDS: HYDRALAZINE 25MG TABLET PO SCH ×2 (14:50→20:53)
[2020-07-21] MEDS: TRAMADOL HCL 50 MG TABLET PO PRN ×2 (14:57→21:06)
[2020-07-21] MEDS: TRAZODONE HCL 100 MG TABLET PO SCH (20:56)
[2020-07-22] VITALS (16 sets, daily range): BP systolic 127–177; BP diastolic 0–99
[2020-07-22] MEDS: LABETALOL 20MG SYG IV PRN (03:29)
[2020-07-22] MEDS: TRAMADOL HCL 50 MG TABLET PO PRN ×2 (07:30→13:29)
[2020-07-22] MEDS: PANTOPRAZOLE 40 MG TAB DR PO SCH ×2 (07:30→17:08)
[2020-07-22] MEDS: INSULIN HUMULIN R 100 UNIT/ML 3ML SQ SCH ×4 (07:30→21:26)
[2020-07-22] MEDS: INSULIN GLARGINE 100 UNITS/ML 10 ML VIAL SQ SCH (09:00)
[2020-07-22 09:12] LABS: HEPATITIS A ANTIBODY IGM Negative (Negative); HEPATITIS B CORE IGM Negative (Negative); HEPATITIS Bs ANTIGEN SCREEN P Negative (Negative)
[2020-07-22] MEDS: DEXAMETHASONE SOD PHOSPHATE 4 MG/ML 1ML VIAL IVP SCH (09:33)
[2020-07-22] MEDS: HEPARIN 5,000 UNIT VIAL SQ SCH ×2 (09:35→21:25)
[2020-07-22] MEDS: HONEY 1 APPL/ML TUBE TP SCH (09:37)
[2020-07-22] MEDS: ASPIRIN 81 MG EC TAB PO SCH (09:38)
[2020-07-22] MEDS: FAMOTIDINE 20MG TAB PO SCH (09:38)
[2020-07-22] MEDS: LINAGLIPTIN 5 MG TABLET PO SCH (09:38)
[2020-07-22] MEDS: Vitamin B Complex/Vit C/Folic Acid PO SCH (09:38)
[2020-07-22] MEDS: PRAMIPEXOLE DI-HCL 0.25 MG TABLET PO SCH ×2 (09:39→21:17)
[2020-07-22] MEDS: CLOPIDOGREL 75MG TAB PO SCH (09:40)
[2020-07-22] MEDS: ATORVASTATIN 10 MG TABLET PO SCH (09:40)
[2020-07-22] MEDS: PREGABALIN 75 MG CAPSULE PO SCH ×2 (09:40→21:00)
[2020-07-22] MEDS: HYDRALAZINE 25MG TABLET PO SCH ×3 (09:41→21:17)
[2020-07-22] MEDS: METOPROLOL SUCCINATE 50 MG TAB.SR.24H PO SCH (09:41)
[2020-07-22] MEDS: SERTRALINE HCL 50 MG TABLET PO SCH (09:42)
[2020-07-22] MEDS: CLONIDINE HCL 0.1 MG TABLET PO SCH ×4 (09:42→21:00)
[2020-07-22] MEDS: FLUTICASONE/VILANTEROL 1 EACH AER.POW.BA IH SCH (09:48)
[2020-07-22] MEDS: CEFEPIME HCL 1 GM VIAL IVP SCH (14:50)
[2020-07-22] MEDS: TRAZODONE HCL 100 MG TABLET PO SCH (21:18)
[2020-07-23 00:38] VITALS: BP 138/62
[2020-07-23 05:19] VITALS: BP 173/98
[2020-07-23] MEDS: INSULIN HUMULIN R 100 UNIT/ML 3ML SQ SCH ×4 (06:29→21:45)
[2020-07-23] MEDS: PANTOPRAZOLE 40 MG TAB DR PO SCH ×2 (06:37→17:06)
[2020-07-23 08:21] VITALS: BP 186/93
[2020-07-23] MEDS: ATORVASTATIN 10 MG TABLET PO SCH (08:54)
[2020-07-23] MEDS: ASPIRIN 81 MG EC TAB PO SCH (08:54)
[2020-07-23] MEDS: CLOPIDOGREL 75MG TAB PO SCH (08:54)
[2020-07-23] MEDS: FAMOTIDINE 20MG TAB PO SCH (08:54)
[2020-07-23] MEDS: HYDRALAZINE 25MG TABLET PO SCH ×3 (08:55→21:38)
[2020-07-23] MEDS: LINAGLIPTIN 5 MG TABLET PO SCH (08:55)
[2020-07-23] MEDS: CLONIDINE HCL 0.1 MG TABLET PO SCH ×4 (08:56→21:58)
[2020-07-23] MEDS: DEXAMETHASONE SOD PHOSPHATE 4 MG/ML 1ML VIAL IVP SCH (08:57)
[2020-07-23] MEDS: LINZESS 290 MCG PO SCH (08:57)
[2020-07-23] MEDS: HEPARIN 5,000 UNIT VIAL SQ SCH ×2 (08:59→21:42)
[2020-07-23] MEDS: METOPROLOL SUCCINATE 50 MG TAB.SR.24H PO SCH (09:00)
[2020-07-23] MEDS: FLUTICASONE/VILANTEROL 1 EACH AER.POW.BA IH SCH (09:00)
[2020-07-23] MEDS ORDERED: INSULIN GLARGINE 100 UNITS/ML 10 ML VIAL SQ SCH (09:00)
[2020-07-23] MEDS: PRAMIPEXOLE DI-HCL 0.25 MG TABLET PO SCH ×2 (09:06→21:37)
[2020-07-23] MEDS: Vitamin B Complex/Vit C/Folic Acid PO SCH (09:06)
[2020-07-23] MEDS: PREGABALIN 75 MG CAPSULE PO SCH ×2 (09:06→21:36)
[2020-07-23] MEDS: SERTRALINE HCL 50 MG TABLET PO SCH (09:07)
[2020-07-23] MEDS: HONEY 1 APPL/ML TUBE TP SCH (09:19)
[2020-07-23 11:54] VITALS: BP 162/93
[2020-07-23] MEDS: CEFEPIME HCL 1 GM VIAL IVP SCH (13:24)
[2020-07-23 16:04] VITALS: BP 160/90
[2020-07-23 21:21] VITALS: BP 152/89
[2020-07-23] MEDS: TRAZODONE HCL 100 MG TABLET PO SCH (21:38)
[2020-07-24] MEDS: TRAMADOL HCL 50 MG TABLET PO PRN ×3 (01:10→14:29)
[2020-07-24] MEDS: PANTOPRAZOLE 40 MG TAB DR PO SCH ×2 (06:52→12:42)
[2020-07-24] MEDS: INSULIN HUMULIN R 100 UNIT/ML 3ML SQ SCH ×4 (06:54→20:34)
[2020-07-24 08:36] VITALS: BP 202/92
[2020-07-24] MEDS: INSULIN GLARGINE 100 UNITS/ML 10 ML VIAL SQ SCH ×3 (09:00→20:35)
[2020-07-24] MEDS: LINZESS 290 MCG PO SCH (09:00)
[2020-07-24] MEDS: DEXAMETHASONE SOD PHOSPHATE 4 MG/ML 1ML VIAL IVP SCH (09:16)
[2020-07-24] MEDS: LINAGLIPTIN 5 MG TABLET PO SCH (09:17)
[2020-07-24] MEDS: SERTRALINE HCL 50 MG TABLET PO SCH (09:18)
[2020-07-24] MEDS: HYDRALAZINE 25MG TABLET PO SCH ×3 (09:18→20:18)
[2020-07-24] MEDS: Vitamin B Complex/Vit C/Folic Acid PO SCH (09:19)
[2020-07-24] MEDS: PREGABALIN 75 MG CAPSULE PO SCH ×2 (09:19→20:19)
[2020-07-24] MEDS: METOPROLOL SUCCINATE 50 MG TAB.SR.24H PO SCH (09:19)
[2020-07-24] MEDS: PRAMIPEXOLE DI-HCL 0.25 MG TABLET PO SCH ×2 (09:20→20:19)
[2020-07-24] MEDS: ATORVASTATIN 10 MG TABLET PO SCH (09:20)
[2020-07-24] MEDS: CLOPIDOGREL 75MG TAB PO SCH (09:20)
[2020-07-24] MEDS: ASPIRIN 81 MG EC TAB PO SCH (09:20)
[2020-07-24] MEDS: FAMOTIDINE 20MG TAB PO SCH (09:20)
[2020-07-24] MEDS: CLONIDINE HCL 0.1 MG TABLET PO SCH ×4 (09:21→20:19)
[2020-07-24] MEDS: FLUTICASONE/VILANTEROL 1 EACH AER.POW.BA IH SCH (09:26)
[2020-07-24 11:58] VITALS: BP 150/83
[2020-07-24] MEDS: HEPARIN 5,000 UNIT VIAL SQ SCH ×2 (12:23→20:33)
[2020-07-24] MEDS: CEFEPIME HCL 1 GM VIAL IVP SCH (12:41)
[2020-07-24] MEDS: ACETAMINOPHEN 325 MG TAB PO PRN (12:42)
[2020-07-24] MEDS: HONEY 1 APPL/ML TUBE TP SCH (13:06)
[2020-07-24] MEDS ORDERED: KETOROLAC 15MG/ML VIAL (15MG/ML) IV SCH (15:45)
[2020-07-24] MEDS ORDERED: KETOROLAC 15MG/ML VIAL (15MG/ML) ONE (15:50)
[2020-07-24 16:51] VITALS: BP 124/66
[2020-07-24 19:56] VITALS: BP 137/75
[2020-07-24] MEDS: TRAZODONE HCL 100 MG TABLET PO SCH (20:19)
[2020-07-25 00:06] VITALS: BP 155/85
[2020-07-25 04:05] VITALS: BP 149/65
[2020-07-25] MEDS: INSULIN HUMULIN R 100 UNIT/ML 3ML SQ SCH ×4 (05:02→21:47)
[2020-07-25] MEDS: PANTOPRAZOLE 40 MG TAB DR PO SCH ×2 (05:41→16:15)
[2020-07-25] MEDS: TRAMADOL HCL 50 MG TABLET PO PRN (05:56)
[2020-07-25 08:00] VITALS: BP 167/94
[2020-07-25] MEDS: LINZESS 290 MCG PO SCH (09:00)
[2020-07-25] MEDS: INSULIN GLARGINE 100 UNITS/ML 10 ML VIAL SQ SCH ×2 (09:00→21:14)
[2020-07-25] MEDS: FLUTICASONE/VILANTEROL 1 EACH AER.POW.BA IH SCH (10:05)
[2020-07-25] MEDS: DEXAMETHASONE SOD PHOSPHATE 4 MG/ML 1ML VIAL IVP SCH (10:07)
[2020-07-25] MEDS: SERTRALINE HCL 50 MG TABLET PO SCH (10:07)
[2020-07-25] MEDS: METOPROLOL SUCCINATE 50 MG TAB.SR.24H PO SCH (10:08)
[2020-07-25] MEDS: PRAMIPEXOLE DI-HCL 0.25 MG TABLET PO SCH ×2 (10:08→21:26)
[2020-07-25] MEDS: CLOPIDOGREL 75MG TAB PO SCH (10:08)
[2020-07-25] MEDS: LINAGLIPTIN 5 MG TABLET PO SCH (10:08)
[2020-07-25] MEDS: PREGABALIN 75 MG CAPSULE PO SCH ×2 (10:08→21:27)
[2020-07-25] MEDS: Vitamin B Complex/Vit C/Folic Acid PO SCH (10:08)
[2020-07-25] MEDS: CLONIDINE HCL 0.1 MG TABLET PO SCH ×4 (10:09→21:45)
[2020-07-25] MEDS: HONEY 1 APPL/ML TUBE TP SCH (10:10)
[2020-07-25] MEDS: FAMOTIDINE 20MG TAB PO SCH (10:10)
[2020-07-25] MEDS: ATORVASTATIN 10 MG TABLET PO SCH (10:10)
[2020-07-25] MEDS: HYDRALAZINE 25MG TABLET PO SCH ×3 (10:10→21:45)
[2020-07-25] MEDS: ASPIRIN 81 MG EC TAB PO SCH (10:10)
[2020-07-25] MEDS: HEPARIN 5,000 UNIT VIAL SQ SCH ×2 (10:11→21:17)
[2020-07-25] MEDS ORDERED: NITROGLYCERIN 0.4 MG SL TAB SL PRN (10:45)
[2020-07-25] MEDS ORDERED: ACETAMINOPHEN 325 MG TAB PO PRN (10:45)
[2020-07-25] MEDS ORDERED: HEPARIN 5,000 UNIT VIAL IJ PRN ×2 (10:45)
[2020-07-25] MEDS ORDERED: 0.9%NACL 1000ML IV PRN (10:45)
[2020-07-25] MEDS ORDERED: 0.9%NACL 1000ML 1,000 ML IV PRN (10:45)
[2020-07-25] MEDS ORDERED: LIDOCAINE HCL-MPF 1% 2ML VIAL IJ PRN (10:45)
[2020-07-25 13:04] VITALS: BP 136/75
[2020-07-25] MEDS: CEFEPIME HCL 1 GM VIAL IVP SCH (13:52)
[2020-07-25] MEDS: ACETAMINOPHEN 325 MG TAB PO PRN ×2 (14:10→22:27)
[2020-07-25 16:00] VITALS: BP 140/79
[2020-07-25 20:00] VITALS: BP 147/80
[2020-07-25] MEDS: TRAZODONE HCL 100 MG TABLET PO SCH (21:29)
[2020-07-26 01:04] VITALS: BP 188/96
[2020-07-26] MEDS: LABETALOL 20MG SYG IV PRN (01:10)
[2020-07-26 02:21] VITALS: BP 166/90
[2020-07-26] MEDS: ACETAMINOPHEN 325 MG TAB PO PRN ×2 (03:07→22:10)
[2020-07-26 04:05] VITALS: BP 136/89
[2020-07-26] MEDS: INSULIN HUMULIN R 100 UNIT/ML 3ML SQ SCH ×4 (06:07→21:53)
[2020-07-26] MEDS: PANTOPRAZOLE 40 MG TAB DR PO SCH ×2 (06:50→18:45)
[2020-07-26 08:00] VITALS: BP 143/77
[2020-07-26] MEDS: LINAGLIPTIN 5 MG TABLET PO SCH (09:26)
[2020-07-26] MEDS: PREGABALIN 75 MG CAPSULE PO SCH ×2 (09:26→21:55)
[2020-07-26] MEDS: METOPROLOL SUCCINATE 50 MG TAB.SR.24H PO SCH (09:28)
[2020-07-26] MEDS: Vitamin B Complex/Vit C/Folic Acid PO SCH (09:28)
[2020-07-26] MEDS: ASPIRIN 81 MG EC TAB PO SCH (09:28)
[2020-07-26] MEDS: PRAMIPEXOLE DI-HCL 0.25 MG TABLET PO SCH ×2 (09:28→21:55)
[2020-07-26] MEDS: CLONIDINE HCL 0.1 MG TABLET PO SCH ×3 (09:28→18:47)
[2020-07-26] MEDS: FAMOTIDINE 20MG TAB PO SCH (09:29)
[2020-07-26] MEDS: SERTRALINE HCL 50 MG TABLET PO SCH (09:29)
[2020-07-26] MEDS: ATORVASTATIN 10 MG TABLET PO SCH (09:29)
[2020-07-26] MEDS: HYDRALAZINE 25MG TABLET PO SCH ×3 (09:30→21:00)
[2020-07-26] MEDS: DEXAMETHASONE SOD PHOSPHATE 4 MG/ML 1ML VIAL IVP SCH (09:30)
[2020-07-26] MEDS: HEPARIN 5,000 UNIT VIAL SQ SCH ×2 (09:31→21:52)
[2020-07-26] MEDS: CLOPIDOGREL 75MG TAB PO SCH (09:32)
[2020-07-26] MEDS: INSULIN GLARGINE 100 UNITS/ML 10 ML VIAL SQ SCH ×2 (09:37→21:54)
[2020-07-26] MEDS: FLUTICASONE/VILANTEROL 1 EACH AER.POW.BA IH SCH (09:38)
[2020-07-26] MEDS: HONEY 1 APPL/ML TUBE TP SCH (09:38)
[2020-07-26] MEDS: LINZESS 290 MCG PO SCH (10:02)
[2020-07-26] MEDS ORDERED: CLONIDINE HCL 0.1 MG TABLET PO PRN (11:15)
[2020-07-26 12:00] VITALS: BP 112/76
[2020-07-26] MEDS ORDERED: 0.9%NACL 50ML 50 ML IV ONE (13:18)
[2020-07-26 13:24] LABS: HEMATOCRIT 30.7 % (42-54); MEAN CORPUSCULAR HGB CONC 31.6 g/dL (32.0-36.0); MEAN CORPUSCULAR VOLUME 82.3 fL (79-99); RED BLOOD CELL COUNT(AUTO) 3.73 MIL/uL (4.50-6.20)
[2020-07-26 13:28] LABS: WHITE BLOOD COUNT (AUTO) 1.1 K/uL (4.8-10.8)
[2020-07-26] MEDS: CEFEPIME HCL 1 GM VIAL IVP SCH (13:33)
[2020-07-26 13:35] LABS: MAGNESIUM 1.7 mg/dL (1.80-2.40); POTASSIUM 5.1 mmol/L (3.5-5.1)
[2020-07-26 13:42] LABS: CREATININE 8.1 mg/dL (0.5-1.5)
[2020-07-26] MEDS: CLOTRIMAZOLE 10 MG TROCHE MM SCH (18:47)
[2020-07-26 20:40] VITALS: BP 116/64
[2020-07-26] MEDS: TRAZODONE HCL 100 MG TABLET PO SCH (21:55)
[2020-07-27] VITALS (7 sets, daily range): BP systolic 112–154; BP diastolic 61–88
[2020-07-27] MEDS: CLOTRIMAZOLE 10 MG TROCHE MM SCH ×5 (00:27→23:46)
[2020-07-27] MEDS: CLONIDINE HCL 0.1 MG TABLET PO SCH ×5 (00:29→23:47)
[2020-07-27] MEDS: INSULIN HUMULIN R 100 UNIT/ML 3ML SQ SCH ×4 (07:30→23:34)
[2020-07-27] MEDS: PANTOPRAZOLE 40 MG TAB DR PO SCH ×2 (07:30→17:57)
[2020-07-27] MEDS: METOPROLOL SUCCINATE 50 MG TAB.SR.24H PO SCH (09:00)
[2020-07-27] MEDS: HYDRALAZINE 25MG TABLET PO SCH ×3 (09:00→23:47)
[2020-07-27] MEDS: LINZESS 290 MCG PO SCH (09:00)
[2020-07-27] MEDS: ATORVASTATIN 10 MG TABLET PO SCH (10:47)
[2020-07-27] MEDS: SERTRALINE HCL 50 MG TABLET PO SCH (10:47)
[2020-07-27] MEDS: ASPIRIN 81 MG EC TAB PO SCH (10:47)
[2020-07-27] MEDS: PRAMIPEXOLE DI-HCL 0.25 MG TABLET PO SCH ×2 (10:48→23:29)
[2020-07-27] MEDS: DEXAMETHASONE SOD PHOSPHATE 4 MG/ML 1ML VIAL IVP SCH (10:48)
[2020-07-27] MEDS: CLOPIDOGREL 75MG TAB PO SCH (10:48)
[2020-07-27] MEDS: Vitamin B Complex/Vit C/Folic Acid PO SCH (10:48)
[2020-07-27] MEDS: FAMOTIDINE 20MG TAB PO SCH (10:48)
[2020-07-27] MEDS: PREGABALIN 75 MG CAPSULE PO SCH ×2 (10:48→23:29)
[2020-07-27] MEDS: HEPARIN 5,000 UNIT VIAL SQ SCH ×2 (10:50→23:36)
[2020-07-27] MEDS: INSULIN GLARGINE 100 UNITS/ML 10 ML VIAL SQ SCH ×2 (10:51→23:35)
[2020-07-27] MEDS: HONEY 1 APPL/ML TUBE TP SCH (10:52)
[2020-07-27] MEDS: FLUTICASONE/VILANTEROL 1 EACH AER.POW.BA IH SCH (10:53)
[2020-07-27] MEDS: ACETAMINOPHEN 325 MG TAB PO PRN ×2 (12:47→23:58)
[2020-07-27] MEDS: LINAGLIPTIN 5 MG TABLET PO SCH (12:48)
[2020-07-27] MEDS: CEFEPIME HCL 1 GM VIAL IVP SCH (12:48)
[2020-07-27] MEDS: TBO-FILGRASTIM 480 MCG/0.8 ML ML SQ SCH (17:58)
[2020-07-27] MEDS: TRAZODONE HCL 100 MG TABLET PO SCH (23:29)
[2020-07-28] VITALS: BP 153/86
[2020-07-28 04:00] VITALS: BP 118/77
[2020-07-28 04:55] LABS: BASOPHILS % (AUTO) 0.1 % (0.0-5.0); LYMPHOCYTES % (AUTO) 2.4 % (21.0-51.0); MEAN CORPUSCULAR HGB CONC 31.6 g/dL (32.0-36.0); MEAN CORPUSCULAR VOLUME 82.3 fL (79-99); NEUTROPHILS % (AUTO) 83.3 % (40.0-77.0); PLATELET COUNT (AUTO) 231 K/uL (130-400); RED BLOOD CELL COUNT(AUTO) 3.89 MIL/uL (4.50-6.20); RED CELL DISTRIBUTION WIDTH 19.7 % (11.0-15.5)
[2020-07-28] MEDS: INSULIN HUMULIN R 100 UNIT/ML 3ML SQ SCH ×4 (07:30→20:56)
[2020-07-28] MEDS: METOPROLOL SUCCINATE 50 MG TAB.SR.24H PO SCH (08:59)
[2020-07-28] MEDS: LINAGLIPTIN 5 MG TABLET PO SCH (08:59)
[2020-07-28] MEDS: TBO-FILGRASTIM 480 MCG/0.8 ML ML SQ SCH (08:59)
[2020-07-28] MEDS: LINZESS 290 MCG PO SCH (09:00)
[2020-07-28] MEDS: PANTOPRAZOLE 40 MG TAB DR PO SCH ×2 (09:02→18:00)
[2020-07-28] MEDS: Vitamin B Complex/Vit C/Folic Acid PO SCH (09:02)
[2020-07-28] MEDS: DEXAMETHASONE SOD PHOSPHATE 4 MG/ML 1ML VIAL IVP SCH (09:02)
[2020-07-28] MEDS: SERTRALINE HCL 50 MG TABLET PO SCH (09:02)
[2020-07-28] MEDS: ASPIRIN 81 MG EC TAB PO SCH (09:02)
[2020-07-28] MEDS: CLOPIDOGREL 75MG TAB PO SCH (09:03)
[2020-07-28] MEDS: PREGABALIN 75 MG CAPSULE PO SCH ×2 (09:03→20:20)
[2020-07-28 09:04] VITALS: BP 126/71
[2020-07-28] MEDS: PRAMIPEXOLE DI-HCL 0.25 MG TABLET PO SCH ×2 (09:04→20:19)
[2020-07-28] MEDS: CLONIDINE HCL 0.1 MG TABLET PO SCH ×4 (09:04→20:20)
[2020-07-28] MEDS: ATORVASTATIN 10 MG TABLET PO SCH (09:05)
[2020-07-28] MEDS: HYDRALAZINE 25MG TABLET PO SCH ×3 (09:05→20:18)
[2020-07-28] MEDS: FAMOTIDINE 20MG TAB PO SCH (09:05)
[2020-07-28] MEDS: INSULIN GLARGINE 100 UNITS/ML 10 ML VIAL SQ SCH ×2 (09:11→20:22)
[2020-07-28] MEDS: HEPARIN 5,000 UNIT VIAL SQ SCH ×2 (09:12→20:21)
[2020-07-28] MEDS: FLUTICASONE/VILANTEROL 1 EACH AER.POW.BA IH SCH (09:14)
[2020-07-28] MEDS: HONEY 1 APPL/ML TUBE TP SCH (09:16)
[2020-07-28] MEDS: CLOTRIMAZOLE 10 MG TROCHE MM SCH ×3 (10:38→18:00)
[2020-07-28 11:51] VITALS: BP 132/62
[2020-07-28] MEDS: CEFEPIME HCL 1 GM VIAL IVP SCH (13:49)
[2020-07-28 15:56] VITALS: BP 111/72
[2020-07-28 16:28] LABS: CREATININE 7.2 mg/dL (0.5-1.5); POTASSIUM 4.4 mmol/L (3.5-5.1)
[2020-07-28] MEDS ORDERED: 0.9%NACL 1000ML IV PRN (18:00)
[2020-07-28] MEDS ORDERED: LIDOCAINE HCL-MPF 1% 2ML VIAL IJ PRN (18:00)
[2020-07-28] MEDS ORDERED: HEPARIN 5,000 UNIT VIAL IJ PRN (18:00)
[2020-07-28] MEDS ORDERED: ACETAMINOPHEN 325 MG TAB PO PRN (18:00)
[2020-07-28] MEDS ORDERED: NITROGLYCERIN 0.4 MG SL TAB SL PRN (18:00)
[2020-07-28] MEDS ORDERED: ALBUMIN FOR BP SUPPORT MISC PRN (18:00)
[2020-07-28] MEDS ORDERED: 0.9%NACL 1000ML 1,000 ML IV PRN (18:00)
[2020-07-28 20:16] VITALS: BP 116/75
[2020-07-28] MEDS: ACETAMINOPHEN 325 MG TAB PO PRN (20:19)
[2020-07-28] MEDS: TRAZODONE HCL 100 MG TABLET PO SCH (20:20)
[2020-07-29] MEDS: CLOTRIMAZOLE 10 MG TROCHE MM SCH ×4 (00:43→17:22)
[2020-07-29 00:50] VITALS: BP 127/63
[2020-07-29 04:17] VITALS: BP 145/71
[2020-07-29] MEDS: INSULIN HUMULIN R 100 UNIT/ML 3ML SQ SCH ×4 (05:50→21:10)
[2020-07-29] MEDS: PANTOPRAZOLE 40 MG TAB DR PO SCH ×2 (05:50→17:21)
[2020-07-29 05:57] LABS: HEMATOCRIT 32.4 % (42-54); MEAN CORPUSCULAR HGB CONC 30.9 g/dL (32.0-36.0); MEAN CORPUSCULAR VOLUME 84.4 fL (79-99); PLATELET COUNT (AUTO) 260 K/uL (130-400); RED BLOOD CELL COUNT(AUTO) 3.84 MIL/uL (4.50-6.20)
[2020-07-29 06:24] LABS: WHITE BLOOD COUNT (AUTO) 38.5 K/uL (4.8-10.8)
[2020-07-29 06:43] LABS: BAND NEUTROPHILS % (MANUAL) 19 % (0-2); EOSINOPHILS % (MANUAL) 1 % (1-6); LYMPHOCYTES % (MANUAL) 1 % (22-44); METAMYELOCYTES % 2 % (0-0); MONOCYTES % (MANUAL) 2 % (2-9); REACTIVE LYMPHOCYTES 1 % (0-0); SEGMENTED NEUTROPHILS % 74 % (40-70)
[2020-07-29 06:44] LABS: MAN.DIFF COMMENT-IMPRESSION MANUAL DIFFERENTIAL; PLATELET MORPHOLOGY COMMENT ADEQUATE
[2020-07-29 08:00] VITALS: BP 136/73
[2020-07-29 08:16] LABS: CREATININE 7.5 mg/dL (0.5-1.5); POTASSIUM 3.9 mmol/L (3.5-5.1)
[2020-07-29] MEDS: DEXAMETHASONE SOD PHOSPHATE 4 MG/ML 1ML VIAL IVP SCH (08:58)
[2020-07-29] MEDS: ASPIRIN 81 MG EC TAB PO SCH (09:00)
[2020-07-29] MEDS: INSULIN GLARGINE 100 UNITS/ML 10 ML VIAL SQ SCH ×2 (09:00→21:08)
[2020-07-29] MEDS: HEPARIN 5,000 UNIT VIAL SQ SCH ×2 (09:04→21:09)
[2020-07-29] MEDS: PRAMIPEXOLE DI-HCL 0.25 MG TABLET PO SCH ×2 (09:07→20:58)
[2020-07-29] MEDS: HYDRALAZINE 25MG TABLET PO SCH ×3 (09:16→20:58)
[2020-07-29] MEDS: Vitamin B Complex/Vit C/Folic Acid PO SCH (09:18)
[2020-07-29] MEDS: METOPROLOL SUCCINATE 50 MG TAB.SR.24H PO SCH (09:18)
[2020-07-29] MEDS: CLONIDINE HCL 0.1 MG TABLET PO SCH ×4 (09:19→21:00)
[2020-07-29] MEDS: LINAGLIPTIN 5 MG TABLET PO SCH (09:20)
[2020-07-29] MEDS: ATORVASTATIN 10 MG TABLET PO SCH (09:20)
[2020-07-29] MEDS: CLOPIDOGREL 75MG TAB PO SCH (09:20)
[2020-07-29] MEDS: SERTRALINE HCL 50 MG TABLET PO SCH (09:20)
[2020-07-29] MEDS: PREGABALIN 75 MG CAPSULE PO SCH ×2 (09:21→20:58)
[2020-07-29] MEDS: FAMOTIDINE 20MG TAB PO SCH (09:21)
[2020-07-29] MEDS: LINZESS 290 MCG PO SCH (09:22)
[2020-07-29] MEDS: FLUTICASONE/VILANTEROL 1 EACH AER.POW.BA IH SCH (09:29)
[2020-07-29] MEDS: HONEY 1 APPL/ML TUBE TP SCH (10:00)
[2020-07-29 11:59] VITALS: BP 116/71
[2020-07-29] MEDS ORDERED: 0.9%NACL 50ML 50 ML IV ONE (13:12)
[2020-07-29] MEDS: CEFEPIME HCL 1 GM VIAL IVP SCH (13:24)
[2020-07-29] MEDS: ACETAMINOPHEN 325 MG TAB PO PRN ×2 (14:29→20:57)
[2020-07-29 16:00] VITALS: BP 112/65
[2020-07-29 20:00] VITALS: BP 147/73
[2020-07-29] MEDS: TRAZODONE HCL 100 MG TABLET PO SCH (20:57)
[2020-07-30] VITALS: BP 127/73
[2020-07-30] MEDS: CLOTRIMAZOLE 10 MG TROCHE MM SCH ×4 (01:39→19:25)
[2020-07-30 04:05] VITALS: BP 138/87
[2020-07-30] MEDS ORDERED: DEXTROSE 50%-WATER 50 ML DISP.SYRIN IV ONE (05:31)
[2020-07-30] MEDS: PANTOPRAZOLE 40 MG TAB DR PO SCH ×2 (05:41→19:14)
[2020-07-30] MEDS: INSULIN HUMULIN R 100 UNIT/ML 3ML SQ SCH ×4 (05:41→21:00)
[2020-07-30 08:00] VITALS: BP 165/81
[2020-07-30] MEDS: LINZESS 290 MCG PO SCH (09:00)
[2020-07-30] MEDS: SOLU-MEDROL 125MG VIAL IVP SCH ×3 (09:00→21:23)
[2020-07-30] MEDS: HONEY 1 APPL/ML TUBE TP SCH (09:00)
[2020-07-30] MEDS: FLUTICASONE/VILANTEROL 1 EACH AER.POW.BA IH SCH (10:03)
[2020-07-30] MEDS: OXYMETAZOLINE HCL SPRAY 15 ML BOTTLE EN SCH ×2 (10:03→21:26)
[2020-07-30] MEDS: HYDRALAZINE 25MG TABLET PO SCH ×3 (10:04→21:15)
[2020-07-30] MEDS: ASPIRIN 81 MG EC TAB PO SCH (10:05)
[2020-07-30] MEDS: CLONIDINE HCL 0.1 MG TABLET PO SCH ×4 (10:06→21:18)
[2020-07-30] MEDS: ATORVASTATIN 10 MG TABLET PO SCH (10:07)
[2020-07-30] MEDS: PREGABALIN 75 MG CAPSULE PO SCH ×2 (10:08→21:18)
[2020-07-30] MEDS: METOPROLOL SUCCINATE 50 MG TAB.SR.24H PO SCH (10:09)
[2020-07-30] MEDS: CLOPIDOGREL 75MG TAB PO SCH (10:09)
[2020-07-30] MEDS: Vitamin B Complex/Vit C/Folic Acid PO SCH (10:09)
[2020-07-30] MEDS: PRAMIPEXOLE DI-HCL 0.25 MG TABLET PO SCH ×2 (10:09→21:15)
[2020-07-30] MEDS: FAMOTIDINE 20MG TAB PO SCH (10:09)
[2020-07-30] MEDS: LINAGLIPTIN 5 MG TABLET PO SCH (10:10)
[2020-07-30] MEDS: HEPARIN 5,000 UNIT VIAL SQ SCH ×2 (10:18→21:17)
[2020-07-30] MEDS: SERTRALINE HCL 50 MG TABLET PO SCH (10:21)
[2020-07-30 12:00] VITALS: BP 116/73
[2020-07-30 18:00] VITALS: BP 147/86
[2020-07-30] MEDS: CEFEPIME HCL 1 GM VIAL IVP SCH (19:13)
[2020-07-30] MEDS: ACETAMINOPHEN 325 MG TAB PO PRN (19:48)
[2020-07-30 20:00] VITALS: BP 148/98
[2020-07-30] MEDS: TRAZODONE HCL 100 MG TABLET PO SCH (21:15)
[2020-07-31] VITALS: BP 152/81
[2020-07-31] MEDS: CLOTRIMAZOLE 10 MG TROCHE MM SCH ×4 (01:01→17:46)
[2020-07-31] MEDS: SOLU-MEDROL 125MG VIAL IVP SCH ×4 (03:26→21:04)
[2020-07-31 04:00] VITALS: BP 133/65
[2020-07-31] MEDS: INSULIN HUMULIN R 100 UNIT/ML 3ML SQ SCH ×4 (06:20→21:07)
[2020-07-31] MEDS: PANTOPRAZOLE 40 MG TAB DR PO SCH ×2 (06:59→17:45)
[2020-07-31 08:30] VITALS: BP 142/88
[2020-07-31] MEDS: HEPARIN 5,000 UNIT VIAL SQ SCH ×2 (10:07→21:07)
[2020-07-31] MEDS: PREGABALIN 75 MG CAPSULE PO SCH ×2 (10:08→21:00)
[2020-07-31] MEDS: ASPIRIN 81 MG EC TAB PO SCH (10:08)
[2020-07-31] MEDS: FAMOTIDINE 20MG TAB PO SCH (10:08)
[2020-07-31] MEDS: METOPROLOL SUCCINATE 50 MG TAB.SR.24H PO SCH (10:08)
[2020-07-31] MEDS: Vitamin B Complex/Vit C/Folic Acid PO SCH (10:08)
[2020-07-31] MEDS: HYDRALAZINE 25MG TABLET PO SCH ×3 (10:09→21:01)
[2020-07-31] MEDS: SERTRALINE HCL 50 MG TABLET PO SCH (10:09)
[2020-07-31] MEDS: CLONIDINE HCL 0.1 MG TABLET PO SCH ×4 (10:09→21:01)
[2020-07-31] MEDS: PRAMIPEXOLE DI-HCL 0.25 MG TABLET PO SCH ×2 (10:10→21:00)
[2020-07-31] MEDS: LINAGLIPTIN 5 MG TABLET PO SCH (10:10)
[2020-07-31] MEDS: ATORVASTATIN 10 MG TABLET PO SCH (10:10)
[2020-07-31] MEDS: CLOPIDOGREL 75MG TAB PO SCH (10:10)
[2020-07-31] MEDS: LINZESS 290 MCG PO SCH (10:11)
[2020-07-31] MEDS: OXYMETAZOLINE HCL SPRAY 15 ML BOTTLE EN SCH ×2 (10:11→21:08)
[2020-07-31] MEDS: HONEY 1 APPL/ML TUBE TP SCH (10:13)
[2020-07-31] MEDS: FLUTICASONE/VILANTEROL 1 EACH AER.POW.BA IH SCH (10:13)
[2020-07-31] MEDS: CEFEPIME HCL 1 GM VIAL IVP SCH (12:41)
[2020-07-31 12:48] VITALS: BP 140/64
[2020-07-31 16:30] VITALS: BP 139/78
[2020-07-31 20:00] VITALS: BP 166/76
[2020-07-31] MEDS: TRAZODONE HCL 100 MG TABLET PO SCH (21:00)
[2020-07-31] MEDS ORDERED: INSULIN HUMULIN R 100 UNIT/ML 3ML IV SCH (23:15)
[2020-08-01] VITALS: BP 143/82
[2020-08-01] MEDS: CLOTRIMAZOLE 10 MG TROCHE MM SCH ×4 (00:33→18:00)
[2020-08-01] MEDS: SOLU-MEDROL 125MG VIAL IVP SCH ×4 (03:49→18:00)
[2020-08-01] MEDS: PANTOPRAZOLE 40 MG TAB DR PO SCH ×2 (06:45→15:55)
[2020-08-01] MEDS: INSULIN HUMULIN R 100 UNIT/ML 3ML SQ SCH ×3 (06:49→18:05)
[2020-08-01 08:55] VITALS: BP 136/74
[2020-08-01] MEDS: OXYMETAZOLINE HCL SPRAY 15 ML BOTTLE EN SCH ×2 (09:00→22:41)
[2020-08-01] MEDS: ATORVASTATIN 10 MG TABLET PO SCH (09:11)
[2020-08-01] MEDS: Vitamin B Complex/Vit C/Folic Acid PO SCH (09:11)
[2020-08-01] MEDS: ASPIRIN 81 MG EC TAB PO SCH (09:11)
[2020-08-01] MEDS: LINAGLIPTIN 5 MG TABLET PO SCH (09:11)
[2020-08-01] MEDS: HYDRALAZINE 25MG TABLET PO SCH ×3 (09:11→22:41)
[2020-08-01] MEDS: PRAMIPEXOLE DI-HCL 0.25 MG TABLET PO SCH ×2 (09:11→22:24)
[2020-08-01] MEDS: PREGABALIN 75 MG CAPSULE PO SCH ×2 (09:11→22:24)
[2020-08-01] MEDS: FAMOTIDINE 20MG TAB PO SCH (09:11)
[2020-08-01] MEDS: METOPROLOL SUCCINATE 50 MG TAB.SR.24H PO SCH (09:11)
[2020-08-01] MEDS: SERTRALINE HCL 50 MG TABLET PO SCH (09:12)
[2020-08-01] MEDS: CLOPIDOGREL 75MG TAB PO SCH (09:12)
[2020-08-01] MEDS: LINZESS 290 MCG PO SCH (09:13)
[2020-08-01] MEDS: FLUTICASONE/VILANTEROL 1 EACH AER.POW.BA IH SCH (09:13)
[2020-08-01] MEDS: CLONIDINE HCL 0.1 MG TABLET PO SCH ×4 (09:13→22:27)
[2020-08-01] MEDS: HONEY 1 APPL/ML TUBE TP SCH (09:14)
[2020-08-01] MEDS: HEPARIN 5,000 UNIT VIAL SQ SCH ×2 (09:17→22:45)
[2020-08-01 10:05] LABS: ALBUMIN 2.1 g/dL (3.5-5.0); BILIRUBIN,TOTAL 0.3 mg/dL (0.2-1.0); TOTAL PROTEIN, SERUM 7.1 g/dL (6.0-8.3)
[2020-08-01 10:10] LABS: POTASSIUM 6.3 mmol/L (3.5-5.1)
[2020-08-01] MEDS: CEFEPIME HCL 1 GM VIAL IVP SCH (11:51)
[2020-08-01 12:09] VITALS: BP 142/84
[2020-08-01] MEDS: ACETAMINOPHEN 325 MG TAB PO PRN (15:55)
[2020-08-01 16:30] VITALS: BP 126/73
[2020-08-01 20:00] VITALS: BP 174/98
[2020-08-01] MEDS ORDERED: INSULIN GLARGINE 100 UNITS/ML 10 ML VIAL SQ SCH (21:00)
[2020-08-01] MEDS: TRAZODONE HCL 100 MG TABLET PO SCH (22:24)
[2020-08-02] VITALS: BP 153/72
[2020-08-02] MEDS: CLOTRIMAZOLE 10 MG TROCHE MM SCH ×4 (00:28→18:24)
[2020-08-02] MEDS: SOLU-MEDROL 125MG VIAL IVP SCH ×4 (00:29→21:06)
[2020-08-02 04:00] VITALS: BP 163/73
[2020-08-02] MEDS: PANTOPRAZOLE 40 MG TAB DR PO SCH ×2 (06:33→16:30)
[2020-08-02] MEDS: INSULIN HUMULIN R 100 UNIT/ML 3ML SQ SCH ×4 (06:35→21:11)
[2020-08-02 08:00] VITALS: BP 183/85
[2020-08-02] MEDS: LINZESS 290 MCG PO SCH (09:00)
[2020-08-02] MEDS: SERTRALINE HCL 50 MG TABLET PO SCH (09:13)
[2020-08-02] MEDS: METOPROLOL SUCCINATE 50 MG TAB.SR.24H PO SCH (09:14)
[2020-08-02] MEDS: PREGABALIN 75 MG CAPSULE PO SCH ×2 (09:14→21:06)
[2020-08-02] MEDS: HEPARIN 5,000 UNIT VIAL SQ SCH ×2 (09:14→21:11)
[2020-08-02] MEDS: ASPIRIN 81 MG EC TAB PO SCH (09:14)
[2020-08-02] MEDS: ATORVASTATIN 10 MG TABLET PO SCH (09:14)
[2020-08-02] MEDS: LINAGLIPTIN 5 MG TABLET PO SCH (09:14)
[2020-08-02] MEDS: FAMOTIDINE 20MG TAB PO SCH (09:15)
[2020-08-02] MEDS: HYDRALAZINE 25MG TABLET PO SCH ×3 (09:15→21:06)
[2020-08-02] MEDS: CLONIDINE HCL 0.1 MG TABLET PO SCH ×4 (09:15→21:12)
[2020-08-02] MEDS: Vitamin B Complex/Vit C/Folic Acid PO SCH (09:15)
[2020-08-02] MEDS: HONEY 1 APPL/ML TUBE TP SCH (09:16)
[2020-08-02] MEDS: OXYMETAZOLINE HCL SPRAY 15 ML BOTTLE EN SCH ×2 (09:16→21:13)
[2020-08-02] MEDS: CLOPIDOGREL 75MG TAB PO SCH (09:16)
[2020-08-02] MEDS: FLUTICASONE/VILANTEROL 1 EACH AER.POW.BA IH SCH (09:16)
[2020-08-02] MEDS: PRAMIPEXOLE DI-HCL 0.25 MG TABLET PO SCH ×2 (09:16→21:13)
[2020-08-02 11:55] VITALS: BP 150/90
[2020-08-02] MEDS ORDERED: HONEY 1 APPL/ML TUBE TP SCH (15:45)
[2020-08-02 15:49] VITALS: BP 164/86
[2020-08-02 20:00] VITALS: BP 188/109
[2020-08-02] MEDS: INSULIN GLARGINE 100 UNITS/ML 10 ML VIAL SQ SCH (21:10)
[2020-08-02] MEDS: TRAZODONE HCL 100 MG TABLET PO SCH (21:12)
[2020-08-03] MEDS: CLOTRIMAZOLE 10 MG TROCHE MM SCH ×4 (00:55→17:28)
[2020-08-03] MEDS: SOLU-MEDROL 125MG VIAL IVP SCH ×4 (02:58→17:28)
[2020-08-03 04:00] VITALS: BP 180/91
[2020-08-03] MEDS: LABETALOL 20MG VIAL IV SCH (05:15)
[2020-08-03] MEDS ORDERED: LABETALOL 20MG VIAL IV ONE (05:23)
[2020-08-03 05:34] LABS: BASOPHILS % (AUTO) 0.4 % (0.0-5.0); LYMPHOCYTES % (AUTO) 9.3 % (21.0-51.0); MEAN CORPUSCULAR HEMOGLOBIN 26.1 pg (27.0-33.0); MEAN CORPUSCULAR HGB CONC 31.3 g/dL (32.0-36.0); MEAN CORPUSCULAR VOLUME 83.3 fL (79-99); NEUTROPHILS % (AUTO) 73.7 % (40.0-77.0); PLATELET COUNT (AUTO) 294 K/uL (130-400); WHITE BLOOD COUNT (AUTO) 4.7 K/uL (4.8-10.8)
[2020-08-03 05:47] LABS: INR 1.06 (0.85-1.15); PROTHROMBIN TIME 11.5 SEC (9.6-11.6)
[2020-08-03 05:48] LABS: PARTIAL THROMBOPLASTIN TIME 28.5 SEC (26.3-35.5)
[2020-08-03 05:58] LABS: CREATININE 10.7 mg/dL (0.5-1.5); POTASSIUM 6.4 mmol/L (3.5-5.1)
[2020-08-03] MEDS: INSULIN HUMULIN R 100 UNIT/ML 3ML SQ SCH ×4 (06:27→21:20)
[2020-08-03] MEDS: SERTRALINE HCL 50 MG TABLET PO SCH (08:49)
[2020-08-03] MEDS: HYDRALAZINE 25MG TABLET PO SCH ×3 (08:50→21:16)
[2020-08-03] MEDS: METOPROLOL SUCCINATE 50 MG TAB.SR.24H PO SCH (08:50)
[2020-08-03] MEDS: PREGABALIN 75 MG CAPSULE PO SCH ×2 (08:50→21:16)
[2020-08-03] MEDS: PRAMIPEXOLE DI-HCL 0.25 MG TABLET PO SCH ×2 (08:50→21:15)
[2020-08-03] MEDS: PANTOPRAZOLE 40 MG TAB DR PO SCH ×2 (08:50→17:22)
[2020-08-03] MEDS: ATORVASTATIN 10 MG TABLET PO SCH (08:50)
[2020-08-03] MEDS: LINAGLIPTIN 5 MG TABLET PO SCH (08:50)
[2020-08-03] MEDS: Vitamin B Complex/Vit C/Folic Acid PO SCH (08:50)
[2020-08-03] MEDS: HONEY 1 APPL/ML TUBE TP SCH (08:51)
[2020-08-03] MEDS: FAMOTIDINE 20MG TAB PO SCH (08:51)
[2020-08-03] MEDS: ASPIRIN 81 MG EC TAB PO SCH (08:51)
[2020-08-03] MEDS: CLOPIDOGREL 75MG TAB PO SCH (08:51)
[2020-08-03] MEDS: LINZESS 290 MCG PO SCH (08:52)
[2020-08-03] MEDS: FLUTICASONE/VILANTEROL 1 EACH AER.POW.BA IH SCH (08:52)
[2020-08-03] MEDS: CLONIDINE HCL 0.1 MG TABLET PO SCH ×4 (09:17→21:15)
[2020-08-03 11:51] VITALS: BP 150/80
[2020-08-03 16:00] VITALS: BP 147/88
[2020-08-03 20:00] VITALS: BP 116/69
[2020-08-03] MEDS: TRAZODONE HCL 100 MG TABLET PO SCH (21:16)
[2020-08-03] MEDS: INSULIN GLARGINE 100 UNITS/ML 10 ML VIAL SQ SCH (21:20)
[2020-08-03] MEDS: ACETAMINOPHEN 325 MG TAB PO PRN (22:08)
[2020-08-04 00:16] VITALS: BP 130/80
[2020-08-04] MEDS: SOLU-MEDROL 125MG VIAL IVP SCH ×3 (01:02→12:40)
[2020-08-04] MEDS: CLOTRIMAZOLE 10 MG TROCHE MM SCH ×3 (01:02→12:41)
[2020-08-04 04:00] VITALS: BP 149/88
[2020-08-04] MEDS: LABETALOL 20MG VIAL IV SCH (05:15)
[2020-08-04] MEDS: PANTOPRAZOLE 40 MG TAB DR PO SCH (06:12)
[2020-08-04] MEDS: INSULIN HUMULIN R 100 UNIT/ML 3ML SQ SCH ×2 (06:16→12:54)
[2020-08-04 07:41] VITALS: BP 164/98
[2020-08-04] MEDS: FLUTICASONE/VILANTEROL 1 EACH AER.POW.BA IH SCH (08:53)
[2020-08-04] MEDS: PREGABALIN 75 MG CAPSULE PO SCH (08:53)
[2020-08-04] MEDS: LINZESS 290 MCG PO SCH (08:53)
[2020-08-04] MEDS: ATORVASTATIN 10 MG TABLET PO SCH (08:53)
[2020-08-04] MEDS: SERTRALINE HCL 50 MG TABLET PO SCH (08:54)
[2020-08-04] MEDS: METOPROLOL SUCCINATE 50 MG TAB.SR.24H PO SCH (08:54)
[2020-08-04] MEDS: HYDRALAZINE 25MG TABLET PO SCH ×2 (08:54→14:00)
[2020-08-04] MEDS: Vitamin B Complex/Vit C/Folic Acid PO SCH (08:54)
[2020-08-04] MEDS: FAMOTIDINE 20MG TAB PO SCH (08:54)
[2020-08-04] MEDS: CLONIDINE HCL 0.1 MG TABLET PO SCH ×2 (08:54→12:41)
[2020-08-04] MEDS: LINAGLIPTIN 5 MG TABLET PO SCH (08:54)
[2020-08-04] MEDS: ASPIRIN 81 MG EC TAB PO SCH (08:55)
[2020-08-04] MEDS: HONEY 1 APPL/ML TUBE TP SCH (08:55)
[2020-08-04] MEDS: PRAMIPEXOLE DI-HCL 0.25 MG TABLET PO SCH (08:55)
[2020-08-04] MEDS: CLOPIDOGREL 75MG TAB PO SCH (08:55)
[2020-08-04] MEDS: ACETAMINOPHEN 325 MG TAB PO PRN (09:27)
[2020-08-04 12:02] VITALS: BP 158/63
[2020-08-04 12:41] VITALS: BP 158/63
== END 2020-08-04 15:35 | DRG 177 ==
LOC: EDH 17:12 → EDHIP 18:43 → OBSVTOIN 18:43 → 4AH 07-19 16:52 → 2AH 07-20 00:57
PROVIDERS: ADMIT Internal Medicine Pulmonary Disease; ATTEND Internal Medicine Pulmonary Disease
PROC: 5A1D70Z Performance of Urinary Filtration, Intermittent, Less than 6 Hours Per Day (ICD-10-PCS; 2020-07-18)
PROC: 5A1D70Z Performance of Urinary Filtration, Intermittent, Less than 6 Hours Per Day (ICD-10-PCS; 2020-07-20)
PROC: 5A1D70Z Performance of Urinary Filtration, Intermittent, Less than 6 Hours Per Day (ICD-10-PCS; 2020-07-22)
PROC: 5A1D70Z Performance of Urinary Filtration, Intermittent, Less than 6 Hours Per Day (ICD-10-PCS; 2020-07-25)
PROC: 5A1D70Z Performance of Urinary Filtration, Intermittent, Less than 6 Hours Per Day (ICD-10-PCS; 2020-07-27)
PROC: 5A1D70Z Performance of Urinary Filtration, Intermittent, Less than 6 Hours Per Day (ICD-10-PCS; 2020-07-28)
PROC: 5A1D70Z Performance of Urinary Filtration, Intermittent, Less than 6 Hours Per Day (ICD-10-PCS; 2020-07-29)
PROC: 5A1D70Z Performance of Urinary Filtration, Intermittent, Less than 6 Hours Per Day (ICD-10-PCS; 2020-08-01)
PROC: 5A1D70Z Performance of Urinary Filtration, Intermittent, Less than 6 Hours Per Day (ICD-10-PCS; principal; 2020-08-03)
DX: U07.1 COVID-19 (principal); N18.6 End stage renal disease; J96.01 Acute respiratory failure with hypoxia; J12.82 Pneumonia due to coronavirus disease 2019; I12.0 Hypertensive chronic kidney disease with stage 5 chronic kidney disease or end stage renal disease; E87.1 Hypo-osmolality and hyponatremia; B37.0 Candidal stomatitis; D63.1 Anemia in chronic kidney disease; D70.9 Neutropenia, unspecified; E11.22 Type 2 diabetes mellitus with diabetic chronic kidney disease; Z99.2 Dependence on renal dialysis; Z95.1 Presence of aortocoronary bypass graft; Z86.73 Personal history of transient ischemic attack (TIA), and cerebral infarction without residual deficits; E87.5 Hyperkalemia; E78.5 Hyperlipidemia, unspecified; I25.10 Atherosclerotic heart disease of native coronary artery without angina pectoris; F32.9 Major depressive disorder, single episode, unspecified; Z91.041 Radiographic dye allergy status; Z79.899 Other long term (current) drug therapy; Z68.33 Body mass index [BMI] 33.0-33.9, adult; Z87.442 Personal history of urinary calculi; Z91.19 Patient's noncompliance with other medical treatment and regimen; Z79.02 Long term (current) use of antithrombotics/antiplatelets; Z83.3 Family history of diabetes mellitus; F41.9 Anxiety disorder, unspecified; E66.01 Morbid (severe) obesity due to excess calories; R04.0 Epistaxis; R53.81 Other malaise
CPT/HCPCS: 36415; 71045; 80048; 80053; 80074; 82550; 82948; 83690; 83735; 84145; 84484; 85025; 85027; 85378; 85610; 85730; 87040; 87070; 87076; 87088; 87426; 87520; 90935; 93005; 93970; 94760; 97039; G0378; J0692; J0696; J1100; J1170; J1644; J1815; J1885; J2405; J2930; J3490; J7050; J7070